=== PATIENT | female | born 1950 | race Caucasian/White ===

== ENCOUNTER → 2016-10-13 08:45 | Outpatient (CLI) | payer MEDICARE, BC ==
[2015-12-18 09:34] VITALS: BMI 49.9
[~2016-10-13 08:45] MED LIST: ADVAIR 250/501 DISK INH; ASPIRIN EC81 M1 PO; BYDUREON P2 MG/0.65 SC; CALTRATE 600 M600 M1 PO; DESERYL100 MG PO; DETROL LA4 MG PO; DIABETA5 MG PO; DIFLUCAN100 MG PO; EFFEXOR XR150 MG; EFFEXOR XR150 MG PO; FLOVENT DI50 MCG/DIS INH; FLUTICASONE PRO16 GM NASAL; GABITRIL4 MG PO; GLUCOPHAGE1000 MG PO; GLUCOPHAGE500 MG PO; IPRAT-ALBUT 0.5-3 ML UPD; K-TAB10 MEQ PO; KLOR-CON 1010 MEQ PO; LANSOPRAZOLE30 M1 PO; LASIX20 MG PO; LASIX40 MG PO; LIORESAL 10 MG10 MG PO; METOPROLOL TART50 MG PO; MIRALAX17 GM PO; MUCINEX600 MG PO; NORCO 10/325 TA1 TA1 PO; NORVASC5 MG PO; NYSTATIN ORAL SU5 ML PO; REGLAN5 MG PO; ROBAXIN500 MG PO; SINGULAIR10 MG PO; SYNTHROID100 MCG PO; SYNTHROID200 MC1 PO; SYNTHROID50 MCG PO; TUDORZA PRESS400 MCG INH; ULTRAM50 MG PO; VENTOLIN HFA18 GM INH; ZESTRIL40 MG PO; ZYRTEC10 MG PO
== END | disposition home or self-care (01) ==
LOC: D.RT 08:45
DX: J44.9 Chronic obstructive pulmonary disease, unspecified (principal)

== ENCOUNTER 2017-03-18 09:45 | Inpatient (IN) | payer MEDICARE, BC ==
[~2017-03-18] VITALS: Ht 162.6 cm; Wt 121.2 kg
--- NOTE | ~2017-03-18 | OP ---
PATIENT NAME: FAN PAZ MEDICAL RECORD: [id number] :50 LOCATION:D.MS Vu4 ADMISSION DATE:03/19/17 SURGEON: JORDI ORELLANA DO OPERATION DATE: 03/22/17 PROCEDURE: Flexible sigmoidoscopy with biopsies and stool collection. INDICATIONS FOR PROCEDURE: Diarrhea. SCOPE: Olympus video gastroscope. MEDICATIONS: Propofol 250 milligrams IV per anesthesia. ESTIMATED BLOOD LOSS: None. COMPLICATIONS: None. FINDINGS: Informed consent was given. The patient was made comfortable with the above medication. After reaching an adequate level of sedation by slow IV push, the patient was placed on her left side. The endoscope was then advanced under direct visualization through the rectum to the splenic flexure. The scope was slowly withdrawn, and the mucosa was carefully examined. On this examination there was evidence of mild diverticulosis of the sigmoid colon. Retroflexion was performed in the rectum with normal view. The entire viewed mucosa appeared normal with a normal vascular pattern. There were no ulcerations, erosions or other abnormalities. Random biopsies were collected to submit for histology and to rule out microscopic colitis. Stool was collected during this examination to send for further studies including culture, Clostridium-difficile, antigen testing, ova and parasites, and fecal white blood cells. The endoscope was withdrawn from the patient. The patient tolerated the procedure well, and there were no complications. IMPRESSIONS: 1. Diverticulosis. 2. Otherwise normal mucosa to the splenic flexure. PLAN/RECOMMENDATIONS: 1. Return to floor. 2. Continue current management while awaiting biopsy results and stool studies. 3. Further recommendations to follow pending course over the next couple of days. JORDI ORELLANA DO CC: [id number] DICTATION DATE: 03/22/17 1500 PC MAINTENANCE TECHNICIAN: BRANDON 03/23/17 1226 ADM IN [facility] [address] [place] [address]
[2017-03-18 10:57] LABS: HEMATOCRIT 39.4 % (36.0-48.0); MCHC 35.5 g/dL (31.0-37.0); MCV 92.9 fL (80.0-100.0); MEAN PLATELET VOLUME 10.2 fL (7.4-10.4); PLATELET COUNT 245 10x3/uL (130-400); RBC 4.24 10x6/uL (4.00-5.40); RDW 12.1 % (11.5-14.5); WBC 21.4 10x3/uL (4.8-10.8)
[2017-03-18 11:04] LABS: ALBUMIN 3.6 g/dL (3.4-5.0); BILIRUBIN - TOTAL 0.75 mg/dL (0.2-1.3); CALCIUM 8.4 mg/dL (8.5-10.1); CARBON DIOXIDE 34.1 mmol/L (21.0-32.0); CREATININE - SERUM 1.5 mg/dL (0.6-1.3)
[2017-03-18 11:10] LABS: ANION GAP 13.5 mmol/L (8-16); POTASSIUM - SERUM 2.6 mmol/L (3.5-5.1)
[2017-03-18 11:12] LABS: EOSINOPHILS 2 % (0-7); LYMPHOCYTES 13 % (15-50); MONOCYTES 5 % (2-11); NEUTROPHILS 75 % (40-80); PLATELET ESTIMATE NORMAL; ROULEAUX OCC
[2017-03-18 12:24] LABS: APPEARANCE HAZY (CLEAR); BILIRUBIN NEGATIVE (NEGATIVE); COLOR YELLOW (YELLOW); GLUCOSE NEGATIVE (NEGATIVE); KETONE NEGATIVE (NEGATIVE); LEUKOCYTE ESTERASE TRACE (NEGATIVE); NITRITE NEGATIVE (NEGATIVE); PROTEIN NEGATIVE (NEGATIVE); UROBILINOGEN NORMAL (NORMAL)
[2017-03-18 12:25] LABS: BACTERIA FEW /hpf (NONE SEEN); EPITHELIAL CELLS OCC /hpf (0-5); WHITE CELLS - URINE OCC /hpf (0-5)
--- NOTE | 2017-03-18 17:30 | NUR ---
ASSESSMENT PER ADMIT PACK .PT WITHOUT DISTRESS. FALL PREVENTION INITIATED,SCD'S. BED RAILS PADDED.ORIENTATION TO ROOM.CALL LIGHT IN REACH.
[2017-03-18] MEDS ORDERED: CIPRO250 MG PO (17:42)
[2017-03-18] MEDS ORDERED: FLAGYL500 MG PO (17:43)
[2017-03-18] MEDS ORDERED: MULTIPLE VITAMI1 TA1 PO (17:44)
[2017-03-18] MEDS ORDERED: PROBIOTIC1 EAC1 PO (17:45)
[2017-03-18 17:56] VITALS: BP 141/56; BMI 49.4
[2017-03-18 18:53] LABS: PHOSPHOROUS 2.1 mg/dL (2.5-4.9)
[2017-03-18 18:58] LABS: MAGNESIUM - SERUM 0.9 mg/dL (1.8-2.4)
[2017-03-18 19:20] LABS: MAGNESIUM - SERUM 0.8 mg/dL (1.8-2.4); POTASSIUM - SERUM 2.6 mmol/L (3.5-5.1)
[2017-03-18 20:00] VITALS: BP 147/61
[2017-03-19] VITALS: BP 144/49
[2017-03-19 04:00] VITALS: BP 161/71
[2017-03-19 05:07] LABS: BASOPHILS 0.2 % (0-2); EOSINOPHILS 0.9 % (0-7); HEMATOCRIT 35.5 % (36.0-48.0); HEMOGLOBIN 12.3 g/dL (12-16); IMMATURE GRANULOCYTES 0.5 % (0-5); MCH 32.6 pg (26.0-34.0); MCHC 34.6 g/dL (31.0-37.0); MCV 94.2 fL (80.0-100.0); MEAN PLATELET VOLUME 10.3 fL (7.4-10.4); MONOCYTES 4.8 % (2-11); NEUTROPHILS 79.6 % (40-80); PLATELET COUNT 211 10x3/uL (130-400); RBC 3.77 10x6/uL (4.00-5.40); RDW 12.2 % (11.5-14.5); WBC 17.6 10x3/uL (4.8-10.8)
[2017-03-19 05:33] LABS: ANION GAP 11.7 mmol/L (8-16); BILIRUBIN - TOTAL 0.64 mg/dL (0.2-1.3); CALCIUM 7.7 mg/dL (8.5-10.1); CREATININE - SERUM 1.2 mg/dL (0.6-1.3); PROTEIN - SERUM 6.9 g/dL (6.4-8.2)
[2017-03-19 05:34] LABS: POTASSIUM - SERUM 2.7 mmol/L (3.5-5.1)
--- NOTE | 2017-03-19 07:40 | NUR ---
ASSESSMENT PER FLOW SHEET.PT WITHOUT DISTRESS.DENIES NEEDS A PRESENT.CALL LIGHT IN REACH.BOX ALARM IN PLACE.PT INSTRUCTED ON FALL PREVENTION.CALL LIGHT IN REACH.
[2017-03-19 08:16] VITALS: BP 112/69
[2017-03-19 12:45] VITALS: BP 137/51
[2017-03-19 12:50] VITALS: Ht 162.6 cm; Wt 121.2 kg
[2017-03-19 15:38] VITALS: BP 137/59
--- NOTE | 2017-03-19 15:41 | NUR ---
Patient Name: FAN PAZ Admission Status: ER Accout number: [id number] Admission Date: 03-18-2017 : 1950 Admission Diagnosis: Attending: MATT Current LOS: 1 Anticipated DC Date: Planned Disposition: Home Primary Insurance: MEDICARE A & B Discharge Planning Comments: CM met with patient and partner (Zayda Patel) to assess discharge planning needs. Patient lives independently at home with her partner. She uses an electric wheelchair, CPAP with Oxygen and nebulizer. Patient has a ramp at home. Patient refuses home health at this time. CM will continue to follow and assist as needed PCP: Anisha Valderrama: [facility] [address] Zayda Sahnishaw (partner) [phone] Health Facilities Surveyor: Sara Sears * Is the patient Alert and Oriented? Yes 0 * How many steps to enter\exit or inside your home? 0 0 * PCP ANISHA 0 * Pharmacy [facility] [address] 0 * Preadmission Environment Home with Family 0 * ADLs Independent 0 * Equipment CPAP Nebulizer Wheelchair 0 * Other Equipment ELECTRIC WHEELCHAIR 0 * List name and contact numbers for known caregivers / representatives who currently or will assist patient after discharge: Zayda Brooksshyann (partner) [phone] 0 * Community resources currently utilized None 0 * Additional services required to return to the preadmission environment? Yes 0 * Can the patient safely return to the preadmission environment? Yes 0 * Has this patient been hospitalized within the prior 30 days at any hospital? No 0 Grand Total: 0
[2017-03-19 20:00] VITALS: BP 158/66
[2017-03-20] VITALS: BP 116/51
[2017-03-20 04:00] VITALS: BP 116/84
--- NOTE | 2017-03-20 04:13 | NUR ---
ASSESSED AT THE BEGINNING OF THE SHIFT. PT IS ALERT AND ORIENTED, ABLE TO VERBALIZE NEEDS. SHE IS SET UP IN BED FOR SEIZURE PRECAUTIONS AND THERE IS A BOX ALARM FOR SAFETY. SHE NEVER TRIES TO GET UP TO BATHROOM ALONE, SHE IS GOOD ABOUT CALLING FOR ASSIST. AT NIGHT SHE USES HER CPAP BUT DURING HER WAKING HRS IT IS O2 AT 2 LITERS PER N/C. SHE IS NOT WEARING HER SCD'S AND STATED THEY WERE TOO HOT. THE BED IS LOW, RAILS UP X'S 2 WITH THE CALL LIGHT AT HAND.
[2017-03-20 05:50] LABS: BASOPHILS 0.3 % (0-2); EOSINOPHILS 3.2 % (0-7); HEMATOCRIT 35.4 % (36.0-48.0); HEMOGLOBIN 11.9 g/dL (12-16); IMMATURE GRANULOCYTES 1.3 % (0-5); LYMPHOCYTES 17.6 % (15-50); MCH 32.7 pg (26.0-34.0); MCHC 33.6 g/dL (31.0-37.0); MEAN PLATELET VOLUME 9.9 fL (7.4-10.4); MONOCYTES 6.2 % (2-11); NEUTROPHILS 71.4 % (40-80); PLATELET COUNT 210 10x3/uL (130-400); RBC 3.64 10x6/uL (4.00-5.40); RDW 12.4 % (11.5-14.5); WBC 13.3 10x3/uL (4.8-10.8)
[2017-03-20 05:54] LABS: MCV 97.3 fL (80.0-100.0)
[2017-03-20 06:23] LABS: ALBUMIN 2.8 g/dL (3.4-5.0); ANION GAP 10.6 mmol/L (8-16); BILIRUBIN - TOTAL 0.4 mg/dL (0.2-1.3); CALCIUM 7.8 mg/dL (8.5-10.1); CARBON DIOXIDE 29.9 mmol/L (21.0-32.0); MAGNESIUM - SERUM 2.1 mg/dL (1.8-2.4); PROTEIN - SERUM 6.6 g/dL (6.4-8.2)
[2017-03-20 06:33] LABS: POTASSIUM - SERUM 3.5 mmol/L (3.5-5.1)
--- NOTE | 2017-03-20 07:00 | NUR ---
REPORT RECIEVED, ASSUMED CARE. PATIENT IN BED WITH IV INTACT. NO COMPLAINTS AT THIS TIME. CALL LIGHT WITHIN REACH.
[2017-03-20 08:23] VITALS: BP 137/57
[2017-03-20 12:01] VITALS: BP 122/62
--- NOTE | 2017-03-20 12:15 | NUR ---
IV FROM RIGHT ARM REMOVED. HARD AND RED AT THIS TIME. CATH TIP INTACT. CALL LIGHT WITHIN REACH.
--- NOTE | 2017-03-20 12:30 | NUR ---
PATIENT IV RESTARTED IN LEFT ARM AT THIS TIME. NO COMPLAINTS OR SIGNS OF DISTRESS. CALL LIGHT WITHIN REACH.
--- NOTE | 2017-03-20 17:58 | NUR ---
PATIENT IN BED WITH IV INTACT. NO COMPLAINTS. FAMILY AT BEDSIDE. CALL LIGHT WITHIN REACH.
[2017-03-20 20:00] VITALS: BP 142/60
[2017-03-21] VITALS: BP 125/46
[2017-03-21 04:00] VITALS: BP 146/56
[2017-03-21 04:40] LABS: BASOPHILS 0.3 % (0-2); EOSINOPHILS 3.5 % (0-7); HEMATOCRIT 36.6 % (36.0-48.0); HEMOGLOBIN 12.4 g/dL (12-16); IMMATURE GRANULOCYTES 1.1 % (0-5); LYMPHOCYTES 19.3 % (15-50); MCHC 33.9 g/dL (31.0-37.0); MCV 97.3 fL (80.0-100.0); MEAN PLATELET VOLUME 9.9 fL (7.4-10.4); NEUTROPHILS 69.8 % (40-80); PLATELET COUNT 237 10x3/uL (130-400); RBC 3.76 10x6/uL (4.00-5.40); RDW 12.4 % (11.5-14.5); WBC 14.1 10x3/uL (4.8-10.8)
[2017-03-21 05:00] LABS: ALBUMIN 2.8 g/dL (3.4-5.0); ANION GAP 10.3 mmol/L (8-16); BILIRUBIN - TOTAL 0.34 mg/dL (0.2-1.3); CALCIUM 7.8 mg/dL (8.5-10.1); CARBON DIOXIDE 28.5 mmol/L (21.0-32.0); MAGNESIUM - SERUM 1.7 mg/dL (1.8-2.4); PHOSPHOROUS 2.1 mg/dL (2.5-4.9); POTASSIUM - SERUM 3.8 mmol/L (3.5-5.1); PROTEIN - SERUM 6.6 g/dL (6.4-8.2)
--- NOTE | 2017-03-21 07:00 | NUR ---
REPORT RECIEVED ASSUMED CARE. PATIENT IN BED WITH IV INTACT. NO COMPLAINTS. CALL LIGHT WITHIN REACH.
[2017-03-21 12:57] VITALS: BP 127/43
[2017-03-21 15:58] VITALS: BP 125/64
[2017-03-21 16:29] VITALS: BP 144/54
--- NOTE | 2017-03-21 18:55 | NUR ---
PATIENT IN BED WITH IV INTACT. NO COMPLAINTS. IV INTACT. CALL LIGHT WITHIN REACH.
--- NOTE | 2017-03-21 19:07 | NUR ---
Received patient in bed with oxygen on @2L/min, respirations unlabored. PIV in left forearm with NS @30ml/hr infusing well. No complaints of pain or discomfort at this time.
[2017-03-21 20:00] VITALS: BP 123/56
--- NOTE | 2017-03-21 21:40 | NUR ---
Patient reports several bouts of diarrhea throughout the day, given Lomotil 1 tab for this at this time. Was also given Restoril 15mg @2132 for complaints of insomnia. Results of Ultram given by day shift nurse are effective. Patient is aware that she will be NPO after midnight for surgery tomorrow. Has telemetry on.
[2017-03-22] VITALS (7 sets, daily range): BP systolic 123–159; BP diastolic 53–86
[2017-03-22 04:48] LABS: BASOPHILS 0.4 % (0-2); EOSINOPHILS 2.8 % (0-7); HEMATOCRIT 36.4 % (36.0-48.0); HEMOGLOBIN 12.2 g/dL (12-16); IMMATURE GRANULOCYTES 1.5 % (0-5); LYMPHOCYTES 20.9 % (15-50); MCH 32.7 pg (26.0-34.0); MCHC 33.5 g/dL (31.0-37.0); MCV 97.6 fL (80.0-100.0); MONOCYTES 6.4 % (2-11); PLATELET COUNT 260 10x3/uL (130-400); RBC 3.73 10x6/uL (4.00-5.40); RDW 12.4 % (11.5-14.5); WBC 14.1 10x3/uL (4.8-10.8)
[2017-03-22 05:15] LABS: ALBUMIN 2.8 g/dL (3.4-5.0); ANION GAP 14.3 mmol/L (8-16); BILIRUBIN - TOTAL 0.34 mg/dL (0.2-1.3); CARBON DIOXIDE 23.6 mmol/L (21.0-32.0); CREATININE - SERUM 0.9 mg/dL (0.6-1.3); MAGNESIUM - SERUM 1.9 mg/dL (1.8-2.4); PHOSPHOROUS 2.1 mg/dL (2.5-4.9); POTASSIUM - SERUM 3.9 mmol/L (3.5-5.1); PROTEIN - SERUM 6.4 g/dL (6.4-8.2)
--- NOTE | 2017-03-22 06:30 | NUR ---
Given two fleets enemas, up to bathroom, having good results.
--- NOTE | 2017-03-22 09:17 | NUR ---
NOTIFIED DR. ARMSTRONG OF PATIENTS EGD. STATED SHE WOULD CALL DR. ORELLANA FOR EGD.
--- NOTE | 2017-03-22 12:16 | NUR ---
NUTRITION MONITORING & EVAL CHART REVIEWED. PT CURRENTLY NPO FOR PROCEDURE. WILL PROVIDE DIET WHEN RESUMED, MONITOR PO INTAKE. RD FOLLOWING
--- NOTE | 2017-03-22 18:55 | NUR ---
1849 DR. ORELLANA GAVE PT. RESULTS. PT. PASSING FLATUS.
[2017-03-23] VITALS: BP 137/48
--- NOTE | 2017-03-23 00:04 | NUR ---
PT RESTIN GIN BED WITH CPAP IN PLACE NO ACUTE DISTRSS NOTED ABLE TO VOICE ALL NEEDS TO STAFF CALL LIGHT IN REACH SIDE RAILS UP X 2
[2017-03-23 04:00] VITALS: BP 106/62
[2017-03-23 05:18] LABS: BASOPHILS 0.5 % (0-2); EOSINOPHILS 2.3 % (0-7); HEMATOCRIT 36.8 % (36.0-48.0); HEMOGLOBIN 12.4 g/dL (12-16); IMMATURE GRANULOCYTES 1.2 % (0-5); LYMPHOCYTES 22.4 % (15-50); MCH 32.8 pg (26.0-34.0); MCHC 33.7 g/dL (31.0-37.0); MCV 97.4 fL (80.0-100.0); MEAN PLATELET VOLUME 9.9 fL (7.4-10.4); MONOCYTES 4.8 % (2-11); NEUTROPHILS 68.8 % (40-80); PLATELET COUNT 286 10x3/uL (130-400); RBC 3.78 10x6/uL (4.00-5.40); RDW 12.5 % (11.5-14.5); WBC 13.2 10x3/uL (4.8-10.8)
[2017-03-23 05:28] LABS: ALBUMIN 2.7 g/dL (3.4-5.0); ANION GAP 12.8 mmol/L (8-16); BILIRUBIN - TOTAL 0.39 mg/dL (0.2-1.3); CALCIUM 7.9 mg/dL (8.5-10.1); CARBON DIOXIDE 23.7 mmol/L (21.0-32.0); MAGNESIUM - SERUM 1.5 mg/dL (1.8-2.4); POTASSIUM - SERUM 3.5 mmol/L (3.5-5.1); PROTEIN - SERUM 6.5 g/dL (6.4-8.2)
[2017-03-23 05:37] LABS: PHOSPHOROUS 3.1 mg/dL (2.5-4.9)
--- NOTE | 2017-03-23 07:40 | NUR ---
SITTING UP IN BED, FAMILY AT BEDSIDE, DENIES NEEDS, CALL LIGHT IN REACH, BED LOWEST POSITION, WILL CONTINUE TO MONITOR
[2017-03-23 08:03] VITALS: BP 131/55
--- NOTE | 2017-03-23 11:40 | NUR ---
RESTING QUIETLY WITH EYES CLOSED RESP DEEP EVEN UNLABORED.BED LOW CL IN REACH.
[2017-03-23 11:41] VITALS: BP 128/78
[2017-03-23 15:43] VITALS: BP 126/54
[2017-03-23 20:00] VITALS: BP 142/62
--- NOTE | 2017-03-23 22:00 | NUR ---
PATIENT IS AWAKE, ALERT AND ORIENTED X'S 4. NO SIGNS OF DISTRESS NOTED. PATIENT SITTING ON THE SIDE OF THE BED. DENIES NEEDS AT THIS TIME.
[2017-03-24] VITALS: BP 117/76
--- NOTE | 2017-03-24 02:30 | NUR ---
C/O OF PAIN IN BACK, A LEVEL OF 7, PAIN MED GIVEN, AND MONITOR CLOSELY.
[2017-03-24 04:00] VITALS: BP 136/46
[2017-03-24 07:09] LABS: MAGNESIUM - SERUM 1.4 mg/dL (1.8-2.4); PHOSPHOROUS 3.1 mg/dL (2.5-4.9)
[2017-03-24 08:07] VITALS: BP 138/68
[2017-03-24] MEDS ORDERED: Levaquin PO (11:38)
[2017-03-24] MEDS ORDERED: FLAGYL250 MG PO (11:38)
[2017-03-24] MEDS ORDERED: THIAMINE HCL50 MG PO (11:50)
[2017-03-24] MEDS ORDERED: FOLIC ACID1 MG PO (11:50)
[2017-03-24 12:17] VITALS: BP 133/67
--- NOTE | 2017-03-24 12:54 | NUR ---
Patient being discharged today. Patient denies HH needs at this time, patient's partner with be driving patient home .
--- NOTE | 2017-03-24 13:15 | NUR ---
SITTING UP IN CHAIR AT THIS TIME WITH RESPIRATIONS EVEN AND NON LABORED. PT TO BE D/C HOME. DENIES NEEDS AT THIS TIME. CALL LIGHT IN REACH, WILL CONTINUE WITH PLAN OF CARE.
--- NOTE | 2017-03-24 13:30 | NUR ---
DISCHARGE PAPERS AND INSTRUCTIONS GIVEN, QUESTIONS ANSWERED, DISCHARGED PER WC WITH BELONGINGS, IV REMOVED LAST NIGHT
[2017-03-26 03:11] LABS: OVA + PARASITE EXAM Final report (())
== END 2017-03-24 13:51 | disposition home or self-care (01) | DRG 392 ==
LOC: D.ER 09:45 → OBSVTIME 15:54 → D.MS 15:54
PROVIDERS: Emergency Medicine; Internal Medicine Gastroenterology; ADMIT Emergency Medicine
PROC: 0DBN8ZX Excision of Sigmoid Colon, Via Natural or Artificial Opening Endoscopic, Diagnostic (ICD-10-PCS; principal; 2017-03-22 10:00)
DX: K52.832 Lymphocytic colitis (principal); N17.9 Acute kidney failure, unspecified; E87.1 Hypo-osmolality and hyponatremia; E11.65 Type 2 diabetes mellitus with hyperglycemia; Z79.84 Long term (current) use of oral hypoglycemic drugs; I10 Essential (primary) hypertension; I25.2 Old myocardial infarction; I11.0 Hypertensive heart disease with heart failure; I50.9 Heart failure, unspecified; G47.33 Obstructive sleep apnea (adult) (pediatric); E05.00 Thyrotoxicosis with diffuse goiter without thyrotoxic crisis or storm; Z99.81 Dependence on supplemental oxygen; E86.0 Dehydration; E87.6 Hypokalemia; E83.51 Hypocalcemia; R31.9 Hematuria, unspecified; K76.0 Fatty (change of) liver, not elsewhere classified; F10.10 Alcohol abuse, uncomplicated; K57.90 Diverticulosis of intestine, part unspecified, without perforation or abscess without bleeding; E03.9 Hypothyroidism, unspecified

== ENCOUNTER 2017-05-13 13:18 | Day surgery (SDC) | payer MEDICARE, BC ==
[~2017-05-13] VITALS: Ht 162.6 cm; Wt 130.9 kg
[~2017-05-13 13:18] MED LIST changes: +CIPRO250 MG PO; +FLAGYL250 MG PO; +FLAGYL500 MG PO; +FOLIC ACID1 MG PO; +Levaquin PO; +MULTIPLE VITAMI1 TA1 PO; +PROBIOTIC1 EAC1 PO; +THIAMINE HCL50 MG PO
[2017-05-13 14:04] VITALS: BP 136/53; Ht 162.6 cm; Wt 130.9 kg
[2017-05-13 14:47] LABS: BASOPHILS 0.2 % (0-2); HEMATOCRIT 36.3 % (36.0-48.0); HEMOGLOBIN 12.4 g/dL (12-16); IMMATURE GRANULOCYTES 0.3 % (0-5); LYMPHOCYTES 19.8 % (15-50); MCH 32.5 pg (26.0-34.0); MCHC 34.2 g/dL (31.0-37.0); MCV 95.3 fL (80.0-100.0); MONOCYTES 4.5 % (2-11); NEUTROPHILS 74.2 % (40-80); PLATELET COUNT 243 10x3/uL (130-400); RBC 3.81 10x6/uL (4.00-5.40); RDW 13.2 % (11.5-14.5); WBC 11.8 10x3/uL (4.8-10.8)
[2017-05-13 14:54] LABS: ANION GAP 14.1 mmol/L (8-16); CALCIUM 8.8 mg/dL (8.5-10.1); CARBON DIOXIDE 33.3 mmol/L (21.0-32.0); CREATININE - SERUM 1.1 mg/dL (0.6-1.3); POTASSIUM - SERUM 3.4 mmol/L (3.5-5.1)
--- NOTE | 2017-05-13 16:50 | NUR ---
ON THIRD TRANSVERSE POLYP CLIP APPLIED.
--- NOTE | 2017-05-13 17:53 | NUR ---
IV DC WITH CATHER TIP INTACT,W/O REDNESS
--- NOTE | 2017-05-17 15:50 | OP ---
PATIENT NAME: FAN PAZ MEDICAL RECORD: [id number] :50 LOCATION:D.OPS ADMISSION DATE: SURGEON: JORDI ORELLANA DO DATE OF OPERATION: 05/13/2017 PROCEDURE: Colonoscopy with polypectomy and saline injection for submucosal lift. INDICATIONS FOR PROCEDURE: Chronic constipation, history of colon polyps, and screening colonoscopy. SCOPE: Olympus video pediatric colonoscope. MEDICATIONS: Propofol IV per anesthesia. ESTIMATED BLOOD LOSS: Minimal. COMPLICATIONS: None. FINDINGS: Informed consent was given. The patient was made comfortable with the above medication. After reaching an adequate level of sedation by slow IV push, the patient was placed on her left side. A digital rectal examination was performed and was normal. The endoscope was then advanced under direct visualization through the rectum to the cecum with visualization of the appendiceal orifice and ileocecal valve. The scope was withdrawn and mucosa was examined. The prep quality was inadequate for this examination. There was a significant amount of retained stool even after irrigation and aspiration. From what could be seen, there were 4 separate polyps removed on today's examination. They ranged in size from 5 mm to 1.2 cm in diameter. One was located in the cecum. It was lifted with saline and removed with snare cautery. It was retrieved using a Rocha Net. There were 3 remaining polyps in the transverse colon. They were all removed using snare cautery. They were retrieved with a combination of suction through the scope and Rocha Net. The largest of the transverse colon polyps measured approximately 1.2 cm. It left a small defect with some bleeding at the base. To close this defect, a single endoclip was placed successfully. After this, the scope was withdrawn due to the time of the procedure and also due to the difficulty with visualization due to the prep. The scope was withdrawn from the patient. The patient tolerated the procedure well and there were no complications. IMPRESSIONS: 1. Multiple polyps as described above. 2. Diverticulosis involving the left side of the colon. PLAN AND RECOMMENDATIONS: 1. Discharge home when recovery parameters are met. 2. Follow up biopsy specimen results. 3. Recall colonoscopy within 6 months with an extended prep. Consider 2-day prep with MiraLax the first day and split Suprep the following day and a half. 4. Follow up biopsy specimen results. 5. Continue MiraLax 1 cap daily for constipation. TRANSINT:[id number] Voice Confirmation ID: [id number] DOCUMENT ID: [id number] OPERATIVE REPORT [id number] FAN PAZ NATHAN A DO at 1550 CC: [id number] DICTATION DATE: 05/13/17 165 INSTALLATION DRAFTER: 05/14/17 0121 [facility] 05/13/17 [place] [id number] [place] [id number]
== END 2017-05-13 18:05 | disposition home or self-care (01) ==
LOC: D.OPS 13:18
PROVIDERS: Anesthesiology
DX: Z12.11 Encounter for screening for malignant neoplasm of colon (principal); D12.0 Benign neoplasm of cecum; D12.3 Benign neoplasm of transverse colon; I25.10 Atherosclerotic heart disease of native coronary artery without angina pectoris; I10 Essential (primary) hypertension; E11.9 Type 2 diabetes mellitus without complications; E03.9 Hypothyroidism, unspecified; K21.9 Gastro-esophageal reflux disease without esophagitis; G47.30 Sleep apnea, unspecified; J44.9 Chronic obstructive pulmonary disease, unspecified; Z01.812 Encounter for preprocedural laboratory examination; Z87.891 Personal history of nicotine dependence

== ENCOUNTER 2017-07-15 14:57 | Inpatient (IN) | payer MEDICARE, BC ==
[~2017-07-15] VITALS: Ht 162.6 cm; Wt 116.4 kg
[~2017-07-15 14:57] MED LIST changes: +ACETAMINOPHEN500 M1 PO; +HUMALOG 30100 UNITS/ SC; +LOVENOX30 MG/0.3 SC; +NYSTATIN1 PWD TOPICAL
--- NOTE | 2017-07-15 17:13 | NUR ---
RECIEVED ON FLOOR/BED.AIR MATTRESS IN WORKING ORDER.ORIENTED TO ROOM AND SURROUNDINGS.CL IN REACH.ACCOMPANIED PER FRIEND.
[2017-07-15 18:19] VITALS: BP 162/66; Ht 162.6 cm; Wt 116.4 kg
--- NOTE | 2017-07-15 19:30 | NUR ---
PATIENT IN BED, AWAKE. S.O. AT BEDSIDE. SHIFT HANDOFF COMPLETE.
--- NOTE | 2017-07-15 20:00 | NUR ---
PATIENT HAVING N/V WHICH HAS NOT REMITTED SIGNIFICANTLY SINCE MID AFTERNOON IN ACUTE CARE. DYA SHIFT CHARGE CALLED DR. ALMONTE RECENTLY. NOW HAVE GIVEN PATIENT ONDANSETRON 8MG IVP VIA LEFT UA PICC LINE. PORT WAS FLUSHED WITH 10ML NS.
[2017-07-15 22:10] VITALS: BP 132/65
--- NOTE | 2017-07-15 22:15 | NUR ---
ASSESSMENT COMPLETE. CONTINUES NAUSEATED WITH OCCASION SMALL VOLUME EMESIS CONSISTING OF UNDIGESTED FOOD PARTICLES. SO FAR ABOUT 200ML SINCE START OF SHIFT. USING EMESIS BAG UNASSISTED WITHOUT DIFFICULTY. FLUSHED HER PICC LINE PORTS. GAVE HER SCHEDULED LOVENOX 30MG SC IN LUQ ABDOMEN. FSBS 110. HELD ALL PO MEDS DUE TO ONGOING N/V.
--- NOTE | 2017-07-16 | NUR ---
IN BED, AWAKE. STILL NAUSEATED WITH OCCASIONAL SMALL AMOUNTS OF EMESIS.
--- NOTE | 2017-07-16 02:05 | NUR ---
PATIENT STILL REPORTS NAUSEA WITH OCCASIONAL SMALL EMESIS. CHANGED OUT ANOTHER EMESIS BAG. STILL UNDIGESTED FOOD BUT MORE LIQUID. PATIENT HAS BEEN SIPPING NAOMY AGUSTÍN ALL NIGHT AND HAS SO FAR DOWNED AROUND 300ML SINCE 193. GAVE HER ONDANSETRON 8MG IVP PER RED PICC PORT AND FLUSHED PORT.
--- NOTE | 2017-07-16 04:40 | NUR ---
AZRA BLOOD FOR LABS FROM LEFT ARM PICC LINE AND FLUSHED BOTH PICC PORTS. SAYS SHE IS FEELING SOMEWHAT BETTER. SANCHEZ OUTPUT IS 500ML.
[2017-07-16 06:08] LABS: BASOPHILS 0.3 % (0-2); EOSINOPHILS 1.2 % (0-7); HEMATOCRIT 33.2 % (36.0-48.0); IMMATURE GRANULOCYTES 4.2 % (0-5); LYMPHOCYTES 15.7 % (15-50); MCH 31.3 pg (26.0-34.0); MCHC 33.1 g/dL (31.0-37.0); MEAN PLATELET VOLUME 9.3 fL (7.4-10.4); MONOCYTES 6.1 % (2-11); NEUTROPHILS 72.5 % (40-80); PLATELET COUNT 326 10x3/uL (130-400); RBC 3.52 10x6/uL (4.00-5.40); RDW 14.6 % (11.5-14.5); WBC 14.7 10x3/uL (4.8-10.8)
[2017-07-16 06:22] LABS: MCV 94.3 fL (80.0-100.0)
[2017-07-16 06:40] LABS: ANION GAP 19.6 mmol/L (8-16); CALCIUM 9.4 mg/dL (8.5-10.1); CARBON DIOXIDE 20.3 mmol/L (21.0-32.0); CREATININE - SERUM 2.3 mg/dL (0.6-1.3); POTASSIUM - SERUM 3.9 mmol/L (3.5-5.1)
--- NOTE | 2017-07-16 06:50 | NUR ---
FSBS 118. EARLIER GAVE PATIENT SCHEDULED PO MEDS ALONG WITH REGLAN 10MG PO FOR HER NAUSEA. ON CHECKING BACK WITH HER, PATIENT REPORTS SHE JUST HAD EMESIS AGAIN.
--- NOTE | 2017-07-16 06:59 | NUR ---
RESTING QUIETLY IN BED. CALL LIGHT IN REACH. BED IN LOWEST POSITION.
--- NOTE | 2017-07-16 08:15 | NUR ---
PT REPORTS NAUSEA AND VOMINTING THRU THE NIGHT STILL COMPLAINS OF NAUSEA WILL GIVE MEDS PER ORDER DR ALMONTE TO JOANNA IN ROUNDS CALL LIGHT IN REACH WILL MONITER
--- NOTE | 2017-07-16 10:00 | NUR ---
DR ALMONTE ORDERED FOR PT TO BE DISCHARGED TO ACUTE CARE PT NOTIFIED DR ARMSTRONG NOTIFIED PT TO BE TRANSFERRED TO ACUTE FLOOR PT CALL LIGHT IN REACH WILL MONITER
[2017-07-16] MEDS ORDERED: TUDORZA PRESS400 MCG INH (11:00)
[2017-07-16] MEDS ORDERED: ENALAPRILA1.25 MG/M1 IV (11:01)
[2017-07-16] MEDS ORDERED: DEXTROSE 50%/WA50 M2 IV (11:03)
[2017-07-16] MEDS ORDERED: GLUTOSE 1537.5 GM PO (11:06)
[2017-07-16] MEDS ORDERED: PROTONIX40 MG PO (11:07)
[2017-07-16] MEDS ORDERED: ONDANSETRON4 MG/2 M3 IV (11:07)
[2017-07-16] MEDS ORDERED: GLUCAGEN1 MG/VIAL IM ×2 (11:08→11:09)
[2017-07-16] MEDS ORDERED: GLUCAGEN1 MG/VIAL SC (11:10)
--- NOTE | 2017-07-16 11:19 | NUR ---
DUE TO CHANGE IN MEDICAL CONDITION PATIENT DISCHARGE FROM REHAB AND ADMITTED TO ACUTE FLOOR
--- NOTE | 2017-07-16 16:00 | NUR ---
PT DISCHARGED TO ACUTE FLOOR REPORT CALLED TO ASHLYN MEMBRENO
--- NOTE | 2017-07-19 11:18 | RHP ---
PATIENT: FAN PAZ MEDICAL RECORD: [id number] ACCOUNT: [id number] LOCATION:[facility] D.1108 : 50 ADMISSION DATE: 07/15/17 REHABILITATION HISTORY AND PHYSICAL EXAMINATION POST ADMISSION PHYSICIAN EXAMINATION DATE OF ADMISSION TO THE REHAB: 07/15/2017 ADMITTING DIAGNOSES: Critical illness myopathy. HISTORY OF PRESENT ILLNESS: The patient was admitted to the inpatient rehab with critical illness myopathy secondary to acute sepsis, acute leukocytosis, dehydration, diabetes, and hyperglycemia with acute kidney injury. She also suffers from hypertension, CHF, coronary artery disease, obesity, obstructive sleep apnea. She is O2 dependent. 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 The patient and her partner were vacationing in [place] approximately 1 month ago when she developed some urinary spasms. She took some Pyridium and her symptoms resolved. A week later, she had a high fever and mental status changes. She presented to the Emergency Room, where she was found to be in septic shock with gram-negative bacteria, which later grew out E. coli. She ended up intubated and was on the vent for approximately 12 days and in the ICU for a total of 15 days. She developed dry gangrene and necrosis. She has also got some decubitus on her buttocks, which are stage I. She has renal failure and has had to be dialyzed 6 times. Her creatinine is down to 2.1. She is a diabetic, but she is doing well from that standpoint. Previously, she was independent with ADLs and mobility. Currently, she is max to total assist for ADLs and mobility. She says she has not been out of bed or attempted to stand since 06/20 except for the use of a Ilan lift. She hopes to regain her strength and hopefully return home. We are going to let these areas on her feet demarcate themselves per surgery. Comorbidities in this patient include hypothyroidism, diabetes, hypertension, COPD, dysphagia, sepsis, hypothyroidism, dehydration, acute kidney injury, CHF, coronary artery disease which is chronic, history of [place] in the past, Graves disease, cataracts, ischemic necrosis, and gram-negative septicemia. PAST MEDICAL HISTORY: Significant for diabetes, thyroid disease, hypertension, CHF, coronary artery disease, COPD, BiPAP use, gastroesophageal reflux disease, diverticulosis, and obesity. PAST SURGICAL HISTORY: Includes gallbladder surgery, T&A, hysterectomy, knee replacements, bladder lift, discectomy, left shoulder scope, and laminectomy. ALLERGIES: OXYCODONE. SHE IS ALSO ALLERGIC TO CEFTIN, MACRODANTIN, CODEINE, AND SULFA. CURRENT MEDICATIONS: Furosemide 40 mg b.i.d. Effexor 150 mg daily. She is on a total of 30 mEq daily of the potassium. She is on polyethylene glycol 17 grams in 8 ounces of water daily. Synthroid, she actually takes a total of 225 mcg, she takes a 125 along with a 100. Protonix 40 mg daily. Floranex daily. She is on fluconazole 150 mg daily. Caltrate 500 mg daily. Aspirin chewable 81 mg daily. Acetaminophen 500 mg every 6 hours p.r.n. Enoxaparin 30 mg b.i.d. Zofran 8 mg every 6 hours p.r.n. nausea. She is on glucose replacement protocol p.r.n. Tramadol 100 mg every 6 hours. Gabitril 4 mg q.a.c. and at bedtime. She is on nystatin powder as needed. Singulair 10 mg at bedtime. Metoprolol 25 HISTORY AND PHYSICAL [id number] FAN PAZ GABRIEL L mg b.i.d. Reglan 10 mg t.i.d. She is on Advair inhaler 250/50 one inhalation b.i.d. Ventolin p.r.n. HABITS: No current alcohol or tobacco use. FAMILY HISTORY: Noncontributory. SOCIAL HISTORY: The patient hopes to return back home with her significant other and get back to her prior level of functioning. REVIEW OF SYSTEMS: GENERAL: Does complain of weakness and fatigue. HEENT: She denies cold, cough, or congestion. CARDIOVASCULAR: Denies chest pain. PHYSICAL EXAMINATION: VITAL SIGNS: Stable, afebrile. GENERAL: An obese female, in no distress. HEENT: Normocephalic and atraumatic. Mucosa moist. NECK: Supple. No lymphadenopathy. LUNGS: Clear at this time. HEART: Regular rate and rhythm. ABDOMEN: Benign. EXTREMITIES: She does have necrotic areas to both of her lower extremities. NEUROLOGIC: She seems intact, although she has got diffuse weakness. LABORATORY DATA: Her white count is 14.7, H&H of 11 and 33, and platelet count was noted to be 326. Her sodium is 133, potassium 3.9, BUN and creatinine of 27 and 2.3, and blood sugar is noted to be 118. ASSESSMENT: This is a 67-year-old female patient admitted to rehab with a working diagnosis of critical illness myopathy. The patient has potential to make improvement. We will institute the following multidisciplinary therapies including, but not limited to, physical, occupational, respiratory, speech, nutritional services, prosthetics and orthotics. Given her complex condition and risk for more complications, rehabilitation services cannot be provided at a low level of care such as a detention facility. PLAN: 1. Admit to [facility] rehab for intensive inpatient therapy to include the following disciplines: A. Physical therapy to improve gait, all transfer skills and bed mobility to a modified independent level. B. Occupational therapy to improve activities of daily living to a modified independent level. C. Case management to assist with discharge planning and placement options. D. Nutrition to assist with nutritional needs. E. Rehabilitation nursing to assist in monitoring the patient's underlying medical conditions and to assist with any type of bowel or bladder management. 2. The patient's current medication and medical care will be continued. 3. We will follow her extremities closely and have wound care see as needed. 4. We will discuss this patient during care team staff meeting this week and treat appropriately. TRANSINT:[id number] Voice Confirmation ID: [id number] DOCUMENT ID: [id number] HISTORY AND PHYSICAL [id number] FAN PAZ notes whether there has been none or any medical/functional change since admission: - The patient has been having vomiting since admit to IRF. ELDON attests patient continues to be appropriate for IRF: - Continues to be appropriate. JHON ALMONTE MD at 1118 CC: [id number] DICTATION DATE: 07/16/17817 CERTIFIED CYTOTECHNOLOGIST: 07/16/17 1054 DIS IN 07/16/17 [facility] [address] [id number]
--- NOTE | 2017-09-22 13:18 | DS ---
PATIENT:FAN PAZ :[birth year] MEDICAL RECORD: [id number] DISCHARGE SUMMARY ADMISSION DATE: 07/15/17 DISCHARGE DATE: 07/16/17 This is a discharge dated 07/16/2017 from inpatient rehab. 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 SECONDARY DIAGNOSES: 1. Urinary tract infection. 2. Diabetes. 3. Congestive heart failure. 4. Coronary artery disease. 5. Hypertension. 6. Hypothyroidism. 7. Hypokalemia. 8. Obesity. 9. Obstructive sleep apnea. 10. Coccyx wound. 11. Nausea and vomiting. 12. Chronic obstructive pulmonary disease. CONSULTS THIS HOSPITALIZATION: GI with Dr. Lei. HOSPITAL COURSE: Full H&P is located elsewhere on the chart on this 67-year-old female who was admitted to inpatient rehab for physical therapy and occupational therapy to improve gait, transfer skills, bed mobility, and activities of daily living to a modified independent level. She was evaluated by PT and OT and their plans of care were followed. She required snf care for observation and assessment, medication administration as well as wound care with a coccyx wound. Her fingerstick blood sugars were monitored throughout her hospital stay with appropriate adjustment in medication. She was on Diflucan for UTI. She was on nebulized albuterol and Advair for respiratory support. She continued on appropriate home medications. Electrolytes were managed by protocol. She developed significant nausea and vomiting and was seen by GI, Dr. Lei with planned EGD. [facility] of [facility] care. DISCHARGE MEDICATIONS: As per discharge medication reconciliation. DISCHARGE DISPOSITION: [facility] after EGD with Dr. Lei. She will continue current diet and level of activity and will follow with primary care and specialist in the acute facility. At least 30 minutes was spent in this discharge activity. TRANSINT:[id number] Voice Confirmation ID: [id number] DOCUMENT ID: [id number] Dictated By: HELENA BLUE I have interviewed/examined the above patient and agree with these documented findings. DISCHARGE SUMMARY REPORT [id number] FAN PAZ JHON WEEMS MD at 1318 at 0939 CC: [id number] DICTATION DATE: 09/18/17 1113 MICROBIOLOGICAL ANALYST: 09/18/17 1406 DIS IN 07/16/17 [facility] [address] [id number]
== END 2017-07-16 16:27 | disposition short-term general hospital (02) | DRG 91 ==
LOC: D.REHAB 14:57
PROVIDERS: ADMIT Emergency Medicine
DX: G72.81 Critical illness myopathy (principal); A41.9 Sepsis, unspecified organism; R65.21 Severe sepsis with septic shock; N17.9 Acute kidney failure, unspecified; Z68.41 Body mass index [BMI] 40.0-44.9, adult; R13.12 Dysphagia, oropharyngeal phase; E03.9 Hypothyroidism, unspecified; E11.65 Type 2 diabetes mellitus with hyperglycemia; J44.9 Chronic obstructive pulmonary disease, unspecified; E86.0 Dehydration; I11.0 Hypertensive heart disease with heart failure; I50.9 Heart failure, unspecified; G47.33 Obstructive sleep apnea (adult) (pediatric); Z99.81 Dependence on supplemental oxygen; E66.9 Obesity, unspecified; L89.301 Pressure ulcer of unspecified buttock, stage 1

== ENCOUNTER 2017-07-16 15:36 | Inpatient (IN) | payer MEDICARE, BC ==
[~2017-07-16] VITALS: Ht 162.6 cm; Wt 125.2 kg
[~2017-07-16 15:36] MED LIST changes: +DEXTROSE 50%/WA50 M2 IV; +ENALAPRILA1.25 MG/M1 IV; +GLUCAGEN1 MG/VIAL IM; +GLUCAGEN1 MG/VIAL SC; +GLUTOSE 1537.5 GM PO; +ONDANSETRON4 MG/2 M3 IV; +PROTONIX40 MG PO
--- NOTE | 2017-07-16 15:50 | NUR ---
1420-RECEIVED REPORT FROM [facility] IN REHAB. I TOLD HER THAT I WOULD CALL HER SOON ROOM IS DONE. 9830-CALLED TO LET [facility] KNOW THAT ROOM IS READY, THEY JUST FINISHED MOPPING THE FLOOR. I SPOKE WITH MINDY WHO SAID THAT [facility] WAS BRINGING THE PATIENT UP NOW EVEN THOUGH ROOM WAS NOT QUITE READY.
--- NOTE | 2017-07-16 16:35 | NUR ---
1555-RECEIVED TO ROOM FROM REHAB VIA BED ON 1ST STEP OVERLAY MATTRESS. WITH ASSIST X 4 PEOPLE, PATIENT PULLED ONTO WHITE BED IN ROOM. BILATERAL SCD'S ARE ON. LEFT UPPER ARM PICC LINE SEEN, SALINE LOCK, FLUSHES WELL. IV SITE IS DATED . RASH NOTED ANTERIOR NECK. UNDER BILATERAL BREASTS AND UNDER ABDOMINAL GIRTH THERE IS NYSTATIN POWDER. ROLLED TO SIDE AND IN BETWEEN UPPER THIGHS AND TO BUTTOCK THERE IS SKIN PEELED OFF R/T YEAST. MEPILEX SEEN TO COCCYX AREA, DATED 07/15/17. ALL THE ENDS OF HER TOES ARE BLACK, NECROTIC LOOKING. SANCHEZ CATH PATENT WITH CLEAR YELLOW URINE, NO DATE TO BAG. 1606-EKG DONE ORDERED FOR PRE-OP OF EGD. 1617-PRE-OP MEDS GIVEN FOR EGD BY BRITTANI CAMEJO RN. WILL TRY AND ADMIT.
[2017-07-16 17:13] VITALS: BP 175/70; BMI 45.0
--- NOTE | 2017-07-16 17:43 | NUR ---
TO GI LAB VIA BED.
--- NOTE | 2017-07-16 18:26 | NUR ---
RECEIVED BACK FROM GI LAB. DAVID.
--- NOTE | 2017-07-16 19:32 | NUR ---
PT LAYING IN BED. PT ON 1.5L OF O2. PT HAS SCDS ON BILATERALY LOWER EXTREM. TOES HAVE NECROSIS. 1ST STEP OVERLAY BED. FAMILY IN ROOM. DENIES ANEEDS. NO S/S OF DISTRESS. WILL CPOC
[2017-07-16 20:00] VITALS: BP 189/69
[2017-07-17] VITALS: BP 175/82
--- NOTE | 2017-07-17 00:26 | NUR ---
PT RESTING IN BED. SCD'S ON BILATERAL TO LOWER LEGS. PT REPOSISTIONED. SHE SPEAKS SOFTLY AND SAYS ITS FROM HER MOUTH BEING DRY. PT HAS DRY LIPS AND MOUTH. OFFERED AN ORAL CARE KIT TO DO ORAL CARE TO PT AND ALSO MOUTH MOISTURIZER. PT DECLINED BOTH. PT JUST WANTS WATER. 1ST STEP OVERLAY BED LOW. CALL LIGHT IN REACH. PT READY TO SLEEP. DENIES ANY NEEDS. NO S/S OF DISTRESS. WILL CPOC
--- NOTE | 2017-07-17 03:43 | NUR ---
REPOSITIONED PT. PT DENIES ANY OTHER NEEDS. PT HAS NO S/S OF DISTRESS. WILL CPOC
[2017-07-17 04:00] VITALS: BP 181/84
--- NOTE | 2017-07-17 05:38 | NUR ---
MORNING MEDS GIVEN PT C/O INDIGESTION. SET PT UP AND OFFERED PT MILK. SHE WANTED TO JUST WAIT FOR REGALN. GIVING PT REGALN NOW WITH PROTONIX. PT DENIES ANY OTHER NEEDS. NO S/S OF DISTRESS. WILL CPOC
[2017-07-17 06:25] LABS: BASOPHILS 0.4 % (0-2); EOSINOPHILS 2.7 % (0-7); HEMATOCRIT 32.8 % (36.0-48.0); HEMOGLOBIN 10.8 g/dL (12-16); IMMATURE GRANULOCYTES 2.9 % (0-5); LYMPHOCYTES 16.3 % (15-50); MCHC 32.9 g/dL (31.0-37.0); MCV 94.3 fL (80.0-100.0); MEAN PLATELET VOLUME 9.5 fL (7.4-10.4); NEUTROPHILS 69.7 % (40-80); PLATELET COUNT 349 10x3/uL (130-400); RBC 3.48 10x6/uL (4.00-5.40); WBC 18.7 10x3/uL (4.8-10.8)
[2017-07-17 06:32] LABS: ANION GAP 18.1 mmol/L (8-16); CARBON DIOXIDE 20.5 mmol/L (21.0-32.0); CREATININE - SERUM 2.2 mg/dL (0.6-1.3); POTASSIUM - SERUM 3.6 mmol/L (3.5-5.1)
--- NOTE | 2017-07-17 07:30 | NUR ---
REPORT RECEIVED. ASSISTED PT TO USED BED WILSON X2 ASSIST. NO RESULTS. PT DENIES OTHER NEEDS AT THIS TIME. RR EVEN AND UNLABORED. REMOVED MEPELEX DUE TO IT BEING SOILED, SKIN IS VERY EXCORIATED IN BUTTOCK AREA. WILL CTM.
[2017-07-17 08:22] VITALS: BP 149/75
--- NOTE | 2017-07-17 09:30 | NUR ---
PT REPORTS FEELING NAUSEATED. WILL GIVE PRN ZOFRAN AND CTM.
--- NOTE | 2017-07-17 10:00 | NUR ---
SPOKE TO FAMILY AND PT ABOUT PT CONDTION. PT REQUESTING STOOL SOFTNER, WILL GIVE WITH MORNING MEDS. PT REQUESTED XANAX, SOMETHING SHE TAKES AT HOME FOR NERVES. WILL CTM.
[2017-07-17 10:57] VITALS: Ht 162.6 cm; Wt 125.2 kg
[2017-07-17 12:24] VITALS: BP 156/76
--- NOTE | 2017-07-17 14:39 | NUR ---
PT REPORTS FEELING NAUSEATED. WILL GIVE ZOFRAN DRIP WHEN AVAILABLE FROM PHARMACY. WILL CTM. RR EVEN AND UNLABORED.
[2017-07-17 17:14] LABS: APPEARANCE CLEAR (CLEAR); BILIRUBIN NEGATIVE (NEGATIVE); COLOR STRAW (YELLOW); GLUCOSE NEGATIVE (NEGATIVE); KETONE NEGATIVE (NEGATIVE); NITRITE NEGATIVE (NEGATIVE); PROTEIN NEGATIVE (NEGATIVE); SPECIFIC GRAVITY 1.005 (1.005-1.020); UROBILINOGEN NORMAL (NORMAL)
[2017-07-17 17:16] LABS: BACTERIA FEW /hpf (NONE SEEN); WHITE CELLS - URINE 0-5 /hpf (0-5); YEAST OCC /hpf (NONE SEEN)
--- NOTE | 2017-07-17 18:34 | NUR ---
PT RESTING QUIETLY, NAUSEA HAS DECREASED SINCE ZOFRAN DRIP INITIATED. EMPTIED SANCHEZ CATHETER. RR EVEN AND UNLABORED. PT DENIES NEEDS AT THIS TIME. WILL GIVE REPORT ON PT CONDTION FOR THE DAY.
--- NOTE | 2017-07-17 19:48 | NUR ---
PT RESTING, 1ST STEP OVERLAY BED. NS @ 100, ZOFRAN @ 4.7 TO LEFT AC PICC. PT FEET ELEVATED AND SCD'S ON BILATERALY. PT TOES ON BOTH FEET NECROTIC. 1.5L O2 NC. RESPIRTAIONS EVEN AND UNLABORED. URINE IN SANCHEZ CATH CLEAR YELLOW. PT DECLINES BEING REPOSITIONED. DENIES ANY NEEDS. NO S/S OF DISTRESS. BED LOW AND CALL LIGHT IN REACH. WILL CPOC
[2017-07-17 20:00] VITALS: BP 164/61
[2017-07-18] VITALS: BP 105/52
[2017-07-18 04:00] VITALS: BP 119/57
[2017-07-18 05:07] LABS: BASOPHILS 0.5 % (0-2); EOSINOPHILS 3.7 % (0-7); HEMATOCRIT 30.8 % (36.0-48.0); HEMOGLOBIN 10.1 g/dL (12-16); IMMATURE GRANULOCYTES 2.6 % (0-5); LYMPHOCYTES 20.2 % (15-50); MCH 31.3 pg (26.0-34.0); MCHC 32.8 g/dL (31.0-37.0); MCV 95.4 fL (80.0-100.0); MEAN PLATELET VOLUME 9.3 fL (7.4-10.4); MONOCYTES 8.6 % (2-11); NEUTROPHILS 64.4 % (40-80); PLATELET COUNT 270 10x3/uL (130-400); RBC 3.23 10x6/uL (4.00-5.40); RDW 14.6 % (11.5-14.5); WBC 14.8 10x3/uL (4.8-10.8)
[2017-07-18 05:29] LABS: ALBUMIN 2.4 g/dL (3.4-5.0); BILIRUBIN - TOTAL 0.5 mg/dL (0.2-1.3); CALCIUM 8.5 mg/dL (8.5-10.1); MAGNESIUM - SERUM 1.1 mg/dL (1.8-2.4); POTASSIUM - SERUM 3.4 mmol/L (3.5-5.1); PROTEIN - SERUM 7.6 g/dL (6.4-8.2)
[2017-07-18 05:35] LABS: ANION GAP 11.9 mmol/L (8-16); CARBON DIOXIDE 26.5 mmol/L (21.0-32.0)
[2017-07-18 06:28] LABS: INR 1.35 (0.85-1.17); PROTIME 16.6 SECONDS (11.6-15.0)
--- NOTE | 2017-07-18 06:48 | NUR ---
PT WITH HOB 40, DRINKING A CUP OF COFFEE. PT PAIN 3/10 WILL GIVE SCHEDULED NORCO. PT ASK FOR JELLO, DOES NOT WANT GRITS. PT DENIES ANY OTHER NEEDS NO S/S OF DISTRESS. WILL CPOC
--- NOTE | 2017-07-18 09:18 | NUR ---
AM ROUNDS - PT IS IN BED AND AWAKE AT THIS TIME. NO NEEDS. O2 AT 1.5L VIA NC. LEFT AC PICC, NS AT 100 AND ZOFRAN AT 4.7. 1ST STEP OVERLAY. BILAT TOES ARE BLACK IN COLOR. BED AT LOWEST POSITION. CALL CERON IN USE/REACH. SIDE RAILS UP X2. WILL CONTINUE TO MONITOR
[2017-07-18 12:04] VITALS: BP 97/45
[2017-07-18 16:12] VITALS: BP 96/44
--- NOTE | 2017-07-18 18:55 | NUR ---
PT IN BED WITH NO NEEDS AT THIS TIMWE. BRODERICK CONTINUE TO MONITOR
[2017-07-18 20:00] VITALS: BP 111/50
[2017-07-19] VITALS: BP 104/48
[2017-07-19 04:00] VITALS: BP 128/61
[2017-07-19 06:07] LABS: BASOPHILS 0.4 % (0-2); EOSINOPHILS 3.2 % (0-7); HEMATOCRIT 28.2 % (36.0-48.0); HEMOGLOBIN 9.2 g/dL (12-16); IMMATURE GRANULOCYTES 2.8 % (0-5); LYMPHOCYTES 15.6 % (15-50); MCH 31.3 pg (26.0-34.0); MCHC 32.6 g/dL (31.0-37.0); MCV 95.9 fL (80.0-100.0); MEAN PLATELET VOLUME 8.9 fL (7.4-10.4); MONOCYTES 8.9 % (2-11); NEUTROPHILS 69.1 % (40-80); PLATELET COUNT 268 10x3/uL (130-400); RBC 2.94 10x6/uL (4.00-5.40); RDW 14.9 % (11.5-14.5); WBC 14.5 10x3/uL (4.8-10.8)
[2017-07-19 06:24] LABS: ANION GAP 13.2 mmol/L (8-16); CALCIUM 8.4 mg/dL (8.5-10.1); CARBON DIOXIDE 23.3 mmol/L (21.0-32.0); CREATININE - SERUM 2.1 mg/dL (0.6-1.3); POTASSIUM - SERUM 3.5 mmol/L (3.5-5.1)
--- NOTE | 2017-07-19 07:38 | NUR ---
RECEIVED REPORT ON PATIENT. PATIENT IS LAYING IN BED. DENIES ANY NEEDS AT THIS TIME. CALL LIGHT IN REACH, BED IN LOWEST POSITION AND LOCKED. WILL CONTINUE TO MONITOR. CPOC.
[2017-07-19 08:48] VITALS: BP 100/43
--- NOTE | 2017-07-19 09:15 | NUR ---
PATIENT SITTING UP IN BED, FAMILY AT BEDSIDE. MEDS GIVEN. NO REQUESTS AT THIS TIME. CPOC.
--- NOTE | 2017-07-19 11:47 | NUR ---
MANUAL BP RECHECKED AND BP IS 88/34. SPOKE WITH CHENG CARDENAS AND SHE STATED TO GIVE A 200ML BOLUS OF NS. BOLUS GOING NOW. WILL CONT TO MONITOR.
--- NOTE | 2017-07-19 11:52 | NUR ---
PATIENT SITTING UP IN BED, FAMILY AT BEDSIDE. FSBS 79, NO INSULIN NEEDED AT THIS TIME. NO REQUESTS OR COMPLAINTS. CPOC.
--- NOTE | 2017-07-19 12:15 | NUR ---
PATIENT SITTING UP IN BED, FAMILY AT BEDSIDE. BP RECHECKED, 90/62. NAD NOTED AND NO COMPLAINTS OR REQUESTS AT THIS TIME. CPOC.
[2017-07-19 12:48] VITALS: BP 88/34
--- NOTE | 2017-07-19 13:45 | NUR ---
PATIENT SITTING UP IN BED WITH FAMILY AT BEDSIDE. NO REQUESTS AT THIS TIME. CPOC.
--- NOTE | 2017-07-19 14:15 | NUR ---
Wound care consult: Stage 2 pressure injury on sacrum remains without change. Gently cleansed and dried and covered with mepilex sacral dressing. Pt is on an air overlay mattress and is being turned/repositioned q2h. Toes on left foot were initially covered with blisters (tip of toes and around toenails). Blisters have ruptured and betadine is being applied daily as per Dr. Carbajal. Right foot (toes) are covered with escar. Wound care will monitor.
--- NOTE | 2017-07-19 15:23 | NUR ---
PATIENT SITTING IN BED RESTING. FAMILY AT BEDSIDE. NYSTATIN POWDER NOT GIVEN AT THIS TIME DUE TO PATIENT GETTING A BED BATH, WILL GIVE AT NEXT DOSE TIME. CPOC.
--- NOTE | 2017-07-19 15:36 | NUR ---
PATIENT SITTING UP IN BED WITH FAMILY AT BEDSIDE. PATIENT OFFERED BED BATH AND REFUSED. NO REQUESTS AT THIS TIME. CPOC.
[2017-07-19 16:50] VITALS: BP 118/50
--- NOTE | 2017-07-19 17:32 | NUR ---
PATIENT RESTING IN BED. NO COMPLAINTS AT THIS TIME. CPOC.
--- NOTE | 2017-07-19 19:14 | NUR ---
PATIENT RESTING IN BED, NAD NOTED. ADVISED SHIFT IS ALMOST OVER AND ASKED IF SHE NEEDED ANYTHING BEFORE I LEFT. DENIES ANY NEEDS AT THIS TIME. CPOC.
--- NOTE | 2017-07-19 20:30 | NUR ---
ROUNDING NOTE: PT IS LAYING IN BED ON 1ST STEP OVERLAY. PT IS A,A,OX3. PT IS ON RA. SHE HAS A DOUBLE LUMEN PICCL INE TO LEFT AC W/ NS RUNNING AT 100CC/HR. ZOFRAN DRIP IS CURRENTLY TURNED OFF. VERIFIED IN COMPUTER THAT PT STILL HAS A CURRENT ORDER FOR ZOFRAN DRIP, WHICH SHE DOES, SO I RESTARTED THE DRIP AT 4.7/HR PER MD ORDER. PT DENIES NAUSEA AT THIS TIME. PT HAS SCD'S ON AND HEELS ARE ELEVATED. TOES ARE NOTED TO BE NECROTIC AND OOZING. PATIENT DENIES PAIN AT THIS TIME. WILL CONT TO MONITOR.
[2017-07-19 22:46] VITALS: BP 109/49
[2017-07-20 05:05] VITALS: BP 120/47
[2017-07-20 05:34] LABS: BASOPHILS 0.3 % (0-2); EOSINOPHILS 3.3 % (0-7); HEMATOCRIT 28.1 % (36.0-48.0); HEMOGLOBIN 9.2 g/dL (12-16); IMMATURE GRANULOCYTES 2.3 % (0-5); LYMPHOCYTES 14.5 % (15-50); MCH 31.1 pg (26.0-34.0); MCHC 32.7 g/dL (31.0-37.0); MCV 94.9 fL (80.0-100.0); MEAN PLATELET VOLUME 9.1 fL (7.4-10.4); MONOCYTES 7.8 % (2-11); NEUTROPHILS 71.8 % (40-80); PLATELET COUNT 296 10x3/uL (130-400); RBC 2.96 10x6/uL (4.00-5.40); RDW 14.7 % (11.5-14.5); WBC 13.7 10x3/uL (4.8-10.8)
[2017-07-20 05:50] LABS: ANION GAP 12.9 mmol/L (8-16); CALCIUM 8.4 mg/dL (8.5-10.1); CARBON DIOXIDE 24.3 mmol/L (21.0-32.0); CREATININE - SERUM 2.2 mg/dL (0.6-1.3); POTASSIUM - SERUM 3.2 mmol/L (3.5-5.1)
--- NOTE | 2017-07-20 06:21 | NUR ---
PT'S IV PUMP KEPT GOING OFF FOR THE FIRST HALF OF THE NIGHT STATING OCCLUDED-PATIENT SIDE, WHICH I THOUGHT WAS DUE TO LOCATION OF PT'S PICC LINE BEING HER AC. THEN THE ERROR MESSAGE CHANED TO OCCLUDED-FLUID SIDE, EMPTY CONTAINER, WHICH DIDN'T MAKE ANY SENSE BECAUSE THE PATIENT HAD A FULL BAG OF FLUIDS HANGING AND THE CHAMBER IS FULL. DECIDED TO CHANGE PUMPS AND THERE WERE NO MORE ERRORS WITH A NEW PUMP. WILL CONT TO MONITOR.
--- NOTE | 2017-07-20 07:22 | NUR ---
RECEIVED FROM CLOTH WASHER OPERATOR. MORNING ROUNDS MADE. PATIENT RESTING IN BED WITH EYES CLOSED, BUT AROUSED WHEN SPOKEN TO. SHE DENIES ANY NEEDS AT THIS TIME. CALL LIGHT IN REACH. CPOC.
[2017-07-20 08:00] VITALS: BP 116/45
--- NOTE | 2017-07-20 09:21 | NUR ---
PATIENT LAYING IN BED WITH FAMILY AT BEDSIDE. IV TUBING CHANGED. NO REQUESTS AT THIS TIME. CPOC.
--- NOTE | 2017-07-20 11:38 | NUR ---
PATIENT RESTING IN BED WITH FAMILY AT BEDSIDE. NO REQUESTS AT THIS TIME. CALL LIGHT IN REACH. CPOC.
[2017-07-20 12:00] VITALS: BP 91/30
--- NOTE | 2017-07-20 12:20 | NUR ---
PATIENT SITTING UP IN BED, EATING LUNCH. FAMILY AT BEDSIDE. NO REQUESTS AT THIS TIME. CPOC.
--- NOTE | 2017-07-20 14:42 | NUR ---
PATIENT RESTING IN BED, DENIES ANY NEEDS AT THIS IIME. BED LOW AND LOCKED. CPOC
--- NOTE | 2017-07-20 15:32 | NUR ---
PATIENT SITTING UP IN BED. NO REQUESTS AT THIS TIME. NAD NOTED. CALL LIGHT IN REACH. CPOC.
[2017-07-20 15:39] VITALS: BP 121/49
--- NOTE | 2017-07-20 17:41 | NUR ---
PATIENT SITTING IN BED. MEDS GIVEN. NO REQUESTS AT THIS TIME. CALL LIGHT IN REACH. CPOC.
--- NOTE | 2017-07-20 19:19 | NUR ---
END OF SHIFT ROUND MADE. PATIENT LAYING IN BED WITH EYES CLOSED BUT EASILY AROUSED. NO NEEDS/REQUESTS AT THIS TIME. CALL LIGHT IN REACH. CPOC.
--- NOTE | 2017-07-20 19:46 | NUR ---
PT IN BED WATCHING TELEVISION DENIES NEEDS AT THIS TIME.
[2017-07-20 22:54] VITALS: BP 167/56
[2017-07-21 04:27] VITALS: BP 156/61
[2017-07-21 06:34] LABS: BASOPHILS 0.2 % (0-2); HEMATOCRIT 27.8 % (36.0-48.0); HEMOGLOBIN 9.1 g/dL (12-16); IMMATURE GRANULOCYTES 2.4 % (0-5); LYMPHOCYTES 14.3 % (15-50); MCH 31.1 pg (26.0-34.0); MCHC 32.7 g/dL (31.0-37.0); MCV 94.9 fL (80.0-100.0); MONOCYTES 8.2 % (2-11); NEUTROPHILS 71.9 % (40-80); PLATELET COUNT 306 10x3/uL (130-400); RBC 2.93 10x6/uL (4.00-5.40); RDW 14.7 % (11.5-14.5); WBC 13.6 10x3/uL (4.8-10.8)
[2017-07-21 06:44] LABS: ANION GAP 13.4 mmol/L (8-16); CREATININE - SERUM 2.2 mg/dL (0.6-1.3); POTASSIUM - SERUM 3.4 mmol/L (3.5-5.1)
--- NOTE | 2017-07-21 07:01 | NUR ---
RN NOTE: PT LAYING IN BED STABLE THROUGHOUT THE NIGHT. REMAINS ON IVF, NS @ 100CC/HR. PT CONTINUES TO C/O BACK PAIN AND IS RECEIVING ULTRAM FOR THAT. SHE DENIES PAIN RELATED TO HER NECROTIC TOES. PT DENIES ANY FURTHER NEEDS, WILL CONT TO MONITOR.
--- NOTE | 2017-07-21 07:30 | NUR ---
INTRODUCED MYSELF TO PT PRIMARY RN FOR TODAYS SHIFT. PT A&O LYING BACK IN BED RESTING QUIETLY WITH FAMILY AT BEDSIDE. SHIFT ASSESSMENT COMPLETED. PT DENIES ANY CURRENT PAIN OR NEEDS AT THIS TIME. CL IN REACH, BED IN LOWEST, SIDE RAILS X2. WILL CPOC.
[2017-07-21 08:37] VITALS: BP 112/52
--- NOTE | 2017-07-21 11:55 | NUR ---
PROVIDED PT WITH PRN ROBAXIN FOR MS. PT SITTING UP IN BED READY TO EAT LUNCH STATES SHES BEEN FEELING WELL OVERALL AND DENIES ANY NAUSEA OR VOMITING. PT HAS FAMILY AT BEDSIDE AND ARE JUST RESTING. CL IN REACH, BED IN LOWEST, SIDE RAILS X2. WILL CPOC.
[2017-07-21 12:13] VITALS: BP 115/56
--- NOTE | 2017-07-21 13:01 | NUR ---
Patient Name: FAN PAZ Admission Status: Elective Accout number: [id number] Admission Date: 07-16-2017 : 1950 Admission Diagnosis:NAUSEA WITH VOMITING, UNSPECIFIED Attending: JHON ALMONTE Current LOS: 5 Anticipated DC Date: 07-22-2017 Planned Disposition: Inpatient Rehab Primary Insurance: MEDICARE A & B PLANNED EXTERNAL PROVIDER: [facility] Discharge Planning Comments: * Is the patient Alert and Oriented? Yes 0 * How many steps to enter\exit or inside your home? RAMP 0 * PCP DR. LANCASTER 0 * Pharmacy [facility] [address] 0 * Preadmission Environment Acute Inpatient Rehab 0 * Facility Name [facility] 0 * ADLs Partial Dependent 0 * Partial ADLs (Assistance needed) Ambulation Bathing Medication Management 0 * Equipment Other 0 * Other Equipment ALL MEDICAL EQUIPMENT PROVIDED BY REHAB. PT HAS AT HOME: CPAP, OXYGEN, ROLLING WALKER, SHOWER CHAIR, WALKER 0 * List name and contact numbers for known caregivers / representatives who currently or will assist patient after discharge: ANDREY, PARTNER, 0 * Community resources currently utilized None 0 * Please name any agencies selected above. NONE 0 * Additional services required to return to the preadmission environment? Yes * Can the patient safely return to the preadmission environment? Yes 0 * Has this patient been hospitalized within the prior 30 days at any hospital? Yes 0 CM SPOKE TO [facility] OF [facility]PATIENT [facility], THEY WILL CONSIDER PT FOR READMISSION IF OFF THE BUMEX DRIP AND ABLE TO PARTICIPATE FULLY WITH THERAPY. CM MET WITH PT AND PARTNER IN ROOM TO DISCUSS DISCHARGE PLANNING AND NEEDS. PT REPORTS LIVING AT HOME INDEPENDENTLY WITH HER PARTNER. PT HAS ALL NEEDED EQUIPMENT AT HOME WITH NO OUTSIDE SERVICES ASSISTING IN THE HOME. PRIOR TO LAST HOSPITALIZATION AND ADMISSION TO [facility]. CM DISCUSSED AVAILABILITY OF HOME HEALTH, REHAB SERVICES AND MEDICAL EQUIPMENT. PT AND PARTNER STATE PT WILL NEED REHAB BEFORE GOING HOME; THEY WOULD LIKE FOR PT TO GET BACK TO [facility]. PT'S PARTNER WILL PICK HER UP FOR DISCHARGE HOME. IMPORTANT MESSAGE FROM MEDICARE PROVIDED AND EXPLAINED. JOSE CARDENAS NOTIFIED. CM WAITING EVALUATION BY PHYSICAL THERAPY, MEDICAL STABILITY AND ACCEPTANCE FROM [facility]. Stave Bolt Equalizer: Kalyan Goldsmith
--- NOTE | 2017-07-21 14:12 | NUR ---
Rehab Prescreening Consult recieved and the chart has been reviewed. She is well known from a recent stay on rehab. She meets criteria for the IRF and has agreed to participate in the required therapy. She will be accepted when the physician feels she is medicall stable and able to participate in 3 hrs of therapy a day 5 days a week. Discussed with the CM Kiko Goldsmith. Lucille Thomason RN Clinical Liaison, Rehab
[2017-07-21 14:22] LABS: FUNGUS STAIN Final report (())
[2017-07-21 15:28] VITALS: BP 141/54
--- NOTE | 2017-07-21 20:00 | NUR ---
PT IS RESTING IN BED WITH EYES OPEN. ALERT AND ORIENTED X 3. DENIES ACUTE PAIN OR DISCOMFORT. NECROTIC TOES ARE OPEN TO AIR. LEFT ARM PICC LINE NOTED. RESTING ON A 1ST STEP MATTRESS. SR'S ARE UP X 3 IN BED. CALL LIGHT AND BEDSIDE TABLE ARE WITHIN EASY REACH.
[2017-07-21 21:14] VITALS: BP 131/46
--- NOTE | 2017-07-21 21:56 | NUR ---
PT IS RESTING IN BED WATCHING TV. NO NEEDS VOICED.
[2017-07-21 23:29] VITALS: BP 133/50
--- NOTE | 2017-07-22 02:04 | NUR ---
PT RESTING IN BED WITH EYES CLOSED.
--- NOTE | 2017-07-22 02:32 | NUR ---
PT RESTING IN BED WITH EYES CLOSED. NO DISTRESS NOTED.
[2017-07-22 04:05] VITALS: BP 103/41
--- NOTE | 2017-07-22 04:47 | NUR ---
PT RESTING IN BED WITH EYES CLOSED.
--- NOTE | 2017-07-22 05:30 | NUR ---
EDGE PLUGGER AT BEDSIDE TO OBTAIN VITALS, WILL CONTINUE WITH PLAN OF CARE. CALL LIGHT IN REACH.
--- NOTE | 2017-07-22 07:59 | NUR ---
INTRODUCED MYSELF TO PT PRIMARY RN FOR TODAYS SHIFT. PT A&O SITTING UP IN BED WATCHING TV. ATTEMPTED LAB DRAW FROM R.AC PICC LINE DOUBLE LUMEN HOWEVER NO BLOOD RETURN WAS NOTED FLUSHED BOTH LUMENS AND A LOT OF RESISTANCE WAS MET, WILL SEE ABOUT GETTING ATIVASE OR BLOOD THINNER IN LINE. PT STATES SHE SLEPT GOOD BUT NEVER LONG ENOUGH. PT ON OVERLAY AIR MATTRESS. SANCHEZ IN PLACE DRAINING TO GRAVITY OFF R.SIDE OF BED WITH STAT LOCK SECURED TO R.INNER THIGH. PTS TOES ON BILAT FEET ARE NECROTIC AND HAVING BETADINE APPLIED DAILY AND LEFT ORACLE PROGRAMMER, PULSES PALP AND NORMAL. PT REQUESTED AND WAS PROVIDED WITH PRN ROBAXIN FOR LEG SPASMS. PT VOICED THANKS AND IS WAITING ON BREAKFAST, DENIES ANY FURTHER NEEDS AT THIS TIME. CL IN REACH, BED IN LOWEST, SIDE RAILS X2 AND BUILT IN BED ALARM ON. WILL CPOC.
[2017-07-22 08:06] LABS: BASOPHILS 0.3 % (0-2); EOSINOPHILS 2.9 % (0-7); HEMOGLOBIN 9.6 g/dL (12-16); IMMATURE GRANULOCYTES 2.5 % (0-5); LYMPHOCYTES 14.5 % (15-50); MCH 31.2 pg (26.0-34.0); MCHC 33.1 g/dL (31.0-37.0); MCV 94.2 fL (80.0-100.0); MEAN PLATELET VOLUME 8.8 fL (7.4-10.4); MONOCYTES 6.2 % (2-11); NEUTROPHILS 73.6 % (40-80); PLATELET COUNT 322 10x3/uL (130-400); RBC 3.08 10x6/uL (4.00-5.40); RDW 14.5 % (11.5-14.5); WBC 14.9 10x3/uL (4.8-10.8)
[2017-07-22 08:27] LABS: ANION GAP 16.5 mmol/L (8-16); CALCIUM 8.8 mg/dL (8.5-10.1); CARBON DIOXIDE 23.9 mmol/L (21.0-32.0); CREATININE - SERUM 2.3 mg/dL (0.6-1.3); POTASSIUM - SERUM 3.4 mmol/L (3.5-5.1)
[2017-07-22 08:55] VITALS: BP 91/34
--- NOTE | 2017-07-22 10:35 | NUR ---
PT ACCEPTED INTO INPATIENT REHAB AND IS WORKING WITH PHYSICAL THERAPY NOW TO TRANSFER TO W/C. PT DENIES ANY CURRENT PAIN OR NEEDS. WILL CPOC.
--- NOTE | 2017-07-22 11:12 | NUR ---
Patient Name: FAN PAZ Encounter No: [id number] : 1950 Primary Insurance: MEDICARE A & B Anticipated DC Date: 07-22-2017 Planned Disposition: Inpatient Rehab External Planned Provider: [facility] DCP follow-up note: CM SPOKE TO [facility]PAT[facility], THEY PLAN TO ACCEPT PT FOR REHAB. PT NOTIFIED, IN AGREEMENT WITH DISCHARGE TO INPATIENT REHAB. JOSE CARDENAS NOTIFIED. DISCHARGE ORDERS RECEIVED. [facility] TO CONTACT MED 2 NURSE WITH ROOM NUMBER WHEN READY TO ACCEPT PT AND NURSE REPORT. Kalyan Goldsmith, CASE MANAGEMENT
--- NOTE | 2017-07-22 11:20 | NUR ---
FSBS 102 NO SS INSULIN REQUIRED.
[2017-07-22 12:05] VITALS: BP 107/47
--- NOTE | 2017-07-22 12:29 | NUR ---
PT C/O HER BOTTOM HURTING, PLACED AN EGG CRATE UNDERNEATH HER FOR COMFORT. WILL CPOC.
--- NOTE | 2017-07-22 12:38 | NUR ---
REPORT CALLED TO [facility] FROM INPATIENT REHAB. WILL COLLECT PTS BELONGINGS AND GET HER DOWN TO ROOM 1118B
--- NOTE | 2017-07-22 13:41 | NUR ---
BELONGINGS COLLECTED AND PAPERS SIGNED. PT READY TO LEAVE FOR REHAB. NO FURTHER NEEDS WILL TRANSPORT DOWN NOW.
[2017-07-27 13:17] LABS: FUNGUS CULTURE RESULT 1 Candida albicans (())
[2017-08-16 11:12] LABS: FUNGUS MYCOLOGY CULTURE Final report (())
== END 2017-07-22 13:52 | DRG 73 ==
LOC: D.M2 15:36
PROVIDERS: Family Medicine; Internal Medicine Gastroenterology; Urology; ADMIT Emergency Medicine
PROC: 0DB78ZX Excision of Stomach, Pylorus, Via Natural or Artificial Opening Endoscopic, Diagnostic (ICD-10-PCS; principal; 2017-07-16)
DX: E11.43 Type 2 diabetes mellitus with diabetic autonomic (poly)neuropathy (principal); K85.90 Acute pancreatitis without necrosis or infection, unspecified; E11.52 Type 2 diabetes mellitus with diabetic peripheral angiopathy with gangrene; N17.9 Acute kidney failure, unspecified; E87.1 Hypo-osmolality and hyponatremia; K31.84 Gastroparesis; K44.9 Diaphragmatic hernia without obstruction or gangrene; K29.70 Gastritis, unspecified, without bleeding; I10 Essential (primary) hypertension; J44.9 Chronic obstructive pulmonary disease, unspecified; I25.10 Atherosclerotic heart disease of native coronary artery without angina pectoris; I50.9 Heart failure, unspecified; G47.33 Obstructive sleep apnea (adult) (pediatric); Z99.81 Dependence on supplemental oxygen; D64.9 Anemia, unspecified

== ENCOUNTER 2017-07-22 13:17 | Inpatient (IN) | payer MEDICARE, BC ==
[~2017-07-22] VITALS: Ht 162.6 cm; Wt 88.5 kg
[2017-07-22 13:43] VITALS: BP 107/45; BMI 33.5
--- NOTE | 2017-07-22 15:36 | NUR ---
PATIENT ADMITTED TO REHAB FROM ACUTE FLOOR. DR. LANCASTER IS HER PCP, [facility] IS HER PHARMACY. DME AT HOME:C-PAP, O2, ROLLING WALKER, SHOWER CHAIR. WILL CONTINUE TO FOLLOW WITH PATIENT AND WILL ASSIST WITH DISCHARGE NEEDS.
--- NOTE | 2017-07-22 19:17 | NUR ---
SHIFT REPORT COMPLETE.
[2017-07-22 20:40] VITALS: BP 120/51
--- NOTE | 2017-07-22 22:05 | NUR ---
REST IN BED, HOB 30 DEGREE, CALL LIGHT IN REACH.
--- NOTE | 2017-07-22 23:58 | NUR ---
SHIFT REPORT COMPLETED.
--- NOTE | 2017-07-23 00:35 | NUR ---
AWOKE PATIENT AND ASSISTED HER TO EMPLACE CPAP MASK AND START CPAP THERAPY SHE HAD EARLIER TOLD ME SHE WANTED TO WEAR IT TONIGHT.
--- NOTE | 2017-07-23 03:14 | NUR ---
REST IN BED, EYE CLOSE, CALL LIGHT IN REACH.
--- NOTE | 2017-07-23 04:25 | NUR ---
REST IN BED, CALL LIGHT IN REACH.
[2017-07-23 05:48] LABS: BASOPHILS 0.3 % (0-2); HEMATOCRIT 27.6 % (36.0-48.0); HEMOGLOBIN 9.2 g/dL (12-16); IMMATURE GRANULOCYTES 3.3 % (0-5); LYMPHOCYTES 15.8 % (15-50); MCHC 33.3 g/dL (31.0-37.0); MCV 92.9 fL (80.0-100.0); MEAN PLATELET VOLUME 9.4 fL (7.4-10.4); MONOCYTES 7.1 % (2-11); NEUTROPHILS 70.5 % (40-80); PLATELET COUNT 356 10x3/uL (130-400); RBC 2.97 10x6/uL (4.00-5.40); RDW 14.4 % (11.5-14.5); WBC 14.1 10x3/uL (4.8-10.8)
[2017-07-23 06:14] LABS: ANION GAP 16.7 mmol/L (8-16); CALCIUM 9.3 mg/dL (8.5-10.1); CARBON DIOXIDE 25.2 mmol/L (21.0-32.0); CREATININE - SERUM 2.3 mg/dL (0.6-1.3)
[2017-07-23 06:17] LABS: POTASSIUM - SERUM 2.9 mmol/L (3.5-5.1)
[2017-07-23 08:42] VITALS: BP 125/53
--- NOTE | 2017-07-23 10:20 | NUR ---
PT AM MEDS ADMINISTERED. PT PATRICK MCCURDY. HAKAN.
--- NOTE | 2017-07-23 11:15 | NUR ---
PT REQ AND REC'D PRN PAIN MED. WCTM.
[2017-07-23 12:33] VITALS: Ht 162.6 cm; Wt 88.5 kg
--- NOTE | 2017-07-23 16:05 | NUR ---
PT REQUESTING ANIL STATING SHE WAS ON IT UPSTAIRS. SPOKE WITH DR ALMONTE. ANIL ORDERED AND GIVEN TO PT.
--- NOTE | 2017-07-23 17:58 | NUR ---
PT K+ 3.2. ELECTOLYTE PROTOCOL OF 40 MEQ GIVEN. LABS ORDERED FOR RECHECK.
--- NOTE | 2017-07-23 19:40 | NUR ---
PT IN BED WITH HOB UP FOR COMFORT. WATCHING TV. NO O2. LEFT UPPER EXT. PICC. FSBS ACHS. ELECTROLYTE PROTOCOL. SANCHEZ. FSBS ACHS. 1ST STEP MATTRESS. TOES ARE BLACK. BED IN LOWEST POSITION AND CALL LIGHT WITHIN REACH.
[2017-07-23 20:53] VITALS: BP 115/41
--- NOTE | 2017-07-23 23:40 | NUR ---
PT IN BED WITH HOB UP FOR COMFORT. WATCHING TV. CPAP ON. BED IN LOWEST POSITION AND CALL LIGHT WITHIN REACH.
--- NOTE | 2017-07-24 01:20 | NUR ---
IN BED, EYES CLOSED. RESPIRATIONS UNLABORED.
--- NOTE | 2017-07-24 04:27 | NUR ---
PT LYING IN BED WITH HOB UP FOR COMFORT. EYES CLOSED. RESPIRATIONS EVEN AND UNLABORED. BED IN LOWEST POSITION AND CALL LIGHT WITHIN REACH.
[2017-07-24 10:29] VITALS: BP 135/43
--- NOTE | 2017-07-24 19:55 | NUR ---
PT. IN BED WITH HOB UP FOR COMFORT AND IS WATCHING TV. ASSESSMENT COMPLETED. SANCHEZ TO D WITHOUT PROBLEMS. PT. PLACES HER OWN C-PAP EQUIPMENT ON SHE NEEDS IT. CALL LIGHT WITHIN REACH.
[2017-07-24 20:15] VITALS: BP 159/50
--- NOTE | 2017-07-24 23:21 | NUR ---
PT. IN BED WITH HOB UP FOR COMFORT WITH EYES CLOSED AND RESP. EVEN. NASAL CPAP IN PLACE AND NO S/S DISTRESS OBSERVED. SANCHEZ TO BSD WITHOUT PROBLEMS AND HER CALL LIGHT IS WITHIN REACH.
--- NOTE | 2017-07-25 03:12 | NUR ---
PT. IN BED WITH HOB UP FOR COMFORT WITH NASAL C-PAP ON WITHOUT ANY S/S DISTRESS. EYES CLOSED AND RESP. EVEN. WITH CALL LIGHT WITHIN REACH.
--- NOTE | 2017-07-25 08:00 | NUR ---
SHIFT ASSMT COMPLETED.
[2017-07-25 09:05] VITALS: BP 131/40
--- NOTE | 2017-07-25 12:00 | NUR ---
EATING LUNCH.DENIES NEEDS.
--- NOTE | 2017-07-25 14:03 | NUR ---
Left upper arm PICC line removed related to partial exertion of line to 44cm. Insertion site was cleaned with chloraprep, line was removed completely to 52cm. Tip intact. No redness or drainage noted. Site covered with sterile 2x2 guaze and tegaderm. Pt informed that dressing would be removed in 24 hours and another placed if needed. Instructions given to Randa Devries RN.
--- NOTE | 2017-07-25 16:00 | NUR ---
HAD PULLED AT PICC LINE.REMOVED BY YOUTUBER.DRSG IN PLACE TO LT UPPER ARM.
--- NOTE | 2017-07-25 19:50 | NUR ---
PT. IN BED ON FIRST STEP MATTRESS AND IS WATCHING TV. NO VOICED NEEDS AT THIS TIME. SANCHEZ TO BSD WITHOUT PROBLEMS. CALL LIGHT WITHIN REACH.
[2017-07-25 20:15] VITALS: BP 117/46
--- NOTE | 2017-07-25 23:35 | NUR ---
PT. IN BED WITH HOB UP FOR COMFORT AND IS WATCHING TV. PT. REMAINS ON FIRST STEP MATTRESS AND HER SANCHEZ IS TO BSD WITHOUT PROBLEMS. CALL LIGHT REMAINS WITHIN REACH.
--- NOTE | 2017-07-26 03:21 | NUR ---
PT. IN BED WITH HOB UP FOR COMFORT AND PT. IS WEARING HER NASAL C-PAP EQUIPMENT. EYES CLOSED AND RESP. EVEN. NO S/S RESP. DISTRESS OBSERVED. SANCHEZ TO BSD WITHOUT PROBLEMS. FIRST STEP MATTRESS ON WITHOUT ANY ALARMS. CALL LIGHT WITHIN REACH.
[2017-07-26 06:04] LABS: BASOPHILS 0.4 % (0-2); HEMATOCRIT 28.2 % (36.0-48.0); HEMOGLOBIN 9.3 g/dL (12-16); IMMATURE GRANULOCYTES 4.5 % (0-5); LYMPHOCYTES 16.6 % (15-50); MCH 31.2 pg (26.0-34.0); MCV 94.6 fL (80.0-100.0); MEAN PLATELET VOLUME 9.5 fL (7.4-10.4); MONOCYTES 9.3 % (2-11); NEUTROPHILS 65.2 % (40-80); PLATELET COUNT 385 10x3/uL (130-400); RBC 2.98 10x6/uL (4.00-5.40); RDW 14.4 % (11.5-14.5); WBC 12.6 10x3/uL (4.8-10.8)
[2017-07-26 06:17] LABS: ANION GAP 14.7 mmol/L (8-16); CALCIUM 9.4 mg/dL (8.5-10.1); CARBON DIOXIDE 25.4 mmol/L (21.0-32.0); CREATININE - SERUM 2.4 mg/dL (0.6-1.3)
[2017-07-26 06:20] LABS: POTASSIUM - SERUM 3.1 mmol/L (3.5-5.1)
[2017-07-26 09:28] VITALS: BP 108/43
--- NOTE | 2017-07-26 10:42 | NUR ---
LAYING IN BED WATCHING TV. DENIES NEEDS OR PAIN. CALL LIGHT IN REACH. ENCOURAGED PT TO ROLL OFF BACK TO HELP PREVENT SKIN BREAKDOWN.
--- NOTE | 2017-07-26 12:07 | RHP ---
PATIENT: FAN PAZ MEDICAL RECORD: [id number] ACCOUNT: [id number] LOCATION:[facility]1118 : 50 ADMISSION DATE: 07/22/17 REHABILITATION HISTORY AND PHYSICAL EXAMINATION POST ADMISSION PHYSICIAN EXAMINATION DATE OF ADMISSION: 07/22/2017. ADMITTING DIAGNOSES: Critical illness myopathy. 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 Ms. Paz and her partner were vacationing in [place] approximately 1 month ago when she developed urinary spasms. She took Pyridium and her symptoms resolved a week later, she developed a high fever and mental status changes. She presented to the Emergency Room where she was found to be in septic shock with Gram-negative bacteria, which later grew out E. coli. She ended up being intubated on the vent for approximately 12 days and in the ICU for a total of 15 days before she was extubated. She developed gangrene and necrosis. She also got a decubitus on her buttocks, which were stage II. She had a renal failure and had to be dialyzed 6 times. Her creatinine is now down to 2.1. She is a diabetic, but she is doing well from that standpoint. She was transferred to the inpatient rehab on 07/15/2017 for strengthening. Within the first 24 hours, she developed severe nausea and vomiting, was transferred back to the acute floor. An EGD showed hiatal hernia, gastritis related to the nausea and vomiting, was secondary to gastroparesis. She was started on Reglan 10 mg IV and Protonix. Urology was consulted for abnormal appearing left kidney on her CT scan. The inflammatory changes seen on CT scan are indicative of pyelonephritis. She has had no further nausea and vomiting. She is tolerating a diabetic diet at this time. She is currently max to total assist for ADLs and mobility, says that she has not been out of bed or attempted to stand since 06/20/2017 except for the use or Ilan lift. She has fair balance, proximal lower extremity weakness and fatigue. She tires easily and has increased dyspnea on exertion. She hopes to regain her strength and return home with her partner. COMORBIDITIES: Include hypothyroidism, diabetes, COPD, dysphagia, severe sepsis, diabetes related to gastroparesis, hyponatremia, hypokalemia, fatigue, weakness, gangrene of her toes, dehydration, leukocytosis, acute kidney injury, hypertension, CHF, coronary artery disease, old CA, obstructive sleep apnea, Graves disease, ischemic necrosis, and Gram-negative septicemia. PAST MEDICAL HISTORY: Significant for cataracts. She has got a history of hypertension, CHF, and CA in the past, obstructive sleep apnea. PAST SURGICAL HISTORY: Includes gallbladder surgery, tonsillectomy, adenoidectomy, hysterectomy, bilateral knee replacement, bladder lift, lumbar discectomy, left shoulder scope, laminectomy, and a cyst removal in the past. ALLERGIES: OXYCODONE, CEFTIN, SULFA, CODEINE, and MACRODANTIN. HISTORY AND PHYSICAL [id number] FAN PAZ CURRENT MEDICATIONS: Include tramadol 100 mg q.6 hours p.r.n., Gabitril 4 mg q.i.d., Effexor XR 150 mg daily. She is on a potassium and sodium replacement protocol at this time secondary to low potassium. Her Synthroid is 25 mcg daily that she takes along with a 200 mcg tablet. She is on potassium chloride 10 mEq daily along with a 20 mEq dose, MiraLax 17 grams in 8 ounces of water daily, Protonix 40 mg daily, lactobacillus 1 tab daily, Flonase nasal spray daily. She is on Caltrate daily, aspirin chew 81 mg daily, Calmoseptine as needed. She is on a glucose replacement protocol. She is on Zofran 4 mg q.4 hours p.r.n. She is on nystatin powder. She is on Singulair 10 mg q.h.s., metoprolol 25 mg b.i.d., Reglan 10 mg q.a.c. and q.h.s., furosemide 40 mg b.i.d., Advair 250/50 one inhalation b.i.d., Vasotec p.r.n. elevated blood pressure, Ventolin HFA as needed, Tudorza 1 puff b.i.d., and Tylenol 500 mg q.6 hours p.r.n. HABITS: No alcohol or tobacco use. FAMILY HISTORY: Noncontributory. SOCIAL HISTORY: The patient hopes to return back home with her significant other and get back to her prior level of functioning. REVIEW OF SYSTEMS: GENERAL: Does complain of weakness and fatigue. HEENT: Denies cold, cough, or congestion. CARDIOVASCULAR: Denies chest pain. PHYSICAL EXAMINATION: VITAL SIGNS: Stable, afebrile. GENERAL: A well-developed, somewhat obese female in no acute distress, alert upon exam. HEENT: Normocephalic and atraumatic. Mucosa moist. NECK: Supple. No lymphadenopathy. LUNGS: Clear at this time. HEART: Regular rate and rhythm. ABDOMEN: Benign. EXTREMITIES: Does have some noted discoloration to her toes, which are indicative of dry gangrene. NEUROLOGIC: Intact. LABORATORY DATA: Admit blood count: Her white count is 14.1, H&H 9.2 and 27.6, and platelet count 356. Her sodium is 130, potassium 2.9, BUN and creatinine of 25 and 2.3, and blood sugar is noted to be 108. ASSESSMENT: This is a 67-year-old female patient admitted to rehab with a working diagnosis of critical illness myopathy. The patient has potential to make improvement. We instituted the following multidisciplinary therapies including to, but not limited to physical, occupational, respiratory, speech, nutritional services, prosthetics and orthotics. Given her complex condition and risk for more complications, rehabilitation services cannot be provided at a lower level of care such as a snf facility. PLAN: 1. Admit to [facility] rehab for intensive inpatient therapy to include the following disciplines: A. Physical therapy to improve gait, all transfer skills, and bed mobility to a modified independent level. HISTORY AND PHYSICAL [id number] FAN PAZ B. Occupational therapy to improve activities of daily living to a modified independent level. C. Case management to assist with discharge planning and placement options. D. Nutrition to assist with nutritional needs. E. Rehabilitation nursing to assist in monitoring the patient's underlying medical conditions and to assist with any type of bowel or bladder management. 2. The patient's current medication and medical care will be continued. 3. The patient will be placed on standard fall precautions. 4. The patient's estimated length of stay is approximately 7-10 days. 5. We will watch her extremities closely, involve wound care as needed, and follow up as needed. TRANSINT:[id number] Voice Confirmation ID: [id number] DOCUMENT ID: [id number] ELDON notes whether there has been none or any medical/functional change since admission: - No change since prescreen. ELDON attests patient continues to be appropriate for IRF: - Continues to be appropriate. JHON ALMONTE MD at 1207 CC: [id number] DICTATION DATE: 07/23/17 0844 CONTRACT NEGOTIATION MANAGER: 07/23/17 1051 ADM IN [facility] [address] [id number]
--- NOTE | 2017-07-26 12:21 | NUR ---
SITTING UP IN W/C IN ROOM EATING LUNCH. DENIES NEEDS. CALLL LIGHT IN REACH
--- NOTE | 2017-07-26 19:42 | NUR ---
PT IN BED WITH HOB UP FOR COMFORT. WATCHING TV. ALERT & ORIENTED. NO O2. NO IV. SANCHEZ. FSBS ACHS. 05/16 TIPS OF TOES ARE BLACK. 1ST STEP MATTRESS. CPAP @ NIGHT. BED IN LOWEST POSIITON AND CALL LIGHT WITHIN REACH.
--- NOTE | 2017-07-26 22:50 | NUR ---
IN BED ON AIR MATTRESS. OTHER THAN HER ROOMMATE MOANING, HAS NO C/O AT THIS TIME.
[2017-07-26 22:57] VITALS: BP 102/31
--- NOTE | 2017-07-26 23:04 | NUR ---
ASSISTED PT WITH CPAP.
--- NOTE | 2017-07-27 03:05 | NUR ---
PT COMPLAINING OF ROOMATE KEEPING HER UP. I APOLOGIZE AND LET HER KNOW IM DOING EVERY THING I CAN POSSIBLY THINK OF.
--- NOTE | 2017-07-27 04:46 | NUR ---
PT IN BED WITH HOB UP FOR COMFORT. EYES CLOSED. CHEST RISING AND FALLING. BED IN LOWEST POSITION AND CALL LIGHT WITHIN REACH.
[2017-07-27 05:48] LABS: BASOPHILS 0.5 % (0-2); EOSINOPHILS 3.8 % (0-7); HEMATOCRIT 27.5 % (36.0-48.0); HEMOGLOBIN 9.2 g/dL (12-16); IMMATURE GRANULOCYTES 3.6 % (0-5); LYMPHOCYTES 15.6 % (15-50); MCH 31.3 pg (26.0-34.0); MCHC 33.5 g/dL (31.0-37.0); MCV 93.5 fL (80.0-100.0); MEAN PLATELET VOLUME 9.2 fL (7.4-10.4); MONOCYTES 9.7 % (2-11); NEUTROPHILS 66.8 % (40-80); PLATELET COUNT 369 10x3/uL (130-400); RBC 2.94 10x6/uL (4.00-5.40); RDW 14.2 % (11.5-14.5); WBC 12.1 10x3/uL (4.8-10.8)
[2017-07-27 06:01] LABS: ANION GAP 12.9 mmol/L (8-16); CALCIUM 9.4 mg/dL (8.5-10.1); CARBON DIOXIDE 28.2 mmol/L (21.0-32.0); CREATININE - SERUM 2.3 mg/dL (0.6-1.3); POTASSIUM - SERUM 3.1 mmol/L (3.5-5.1)
--- NOTE | 2017-07-27 10:35 | NUR ---
Nutrition Follow Up: Pt is eating 85% meal avg on a diabetic diet. +BM 07/26/17. Labs reviewed-Na is low. Meds noted including Lasix. Rec continue current diet. RD following.
--- NOTE | 2017-07-27 14:36 | NUR ---
SITTING IN W/C IN ROOM. IS WEAK BUT DENIES INCREASED DISCOMFORT. STATES HER BUTTOCK IS SORE. HAS AIR MATTRESS ON BED. 9/10 TOES BLACK.
[2017-07-27 15:08] VITALS: BP 134/56
[2017-07-27 20:00] VITALS: BP 110/52
--- NOTE | 2017-07-27 20:00 | NUR ---
PT IS RESTING IN BED WITH EYES OPEN. ALERT AND ORIENTED X 3. DENIES ACUTE DISCOMFORT AT THIS TIME. TOES TO BILAT FEET NOTED TO BE BLACK. PT REQUESTS THEM TO BE UNCOVERED, STATING THE BLANKET HURTS THEM. PT RESTING ON A FIRST STEP MATTRESS. SANCHEZ CATH PATENT AND DRAINING TO A GRAVITY BAG. SR'S ARE UP X 3 IN BED. CALL LIGHT AND BEDSIDE TABLE ARE WITHIN EASY REACH.
--- NOTE | 2017-07-27 22:10 | NUR ---
PT RESTING IN BED WITH EYES CLOSED. NO ACUTE DISTRESS NOTED. CPAP IS ON.
--- NOTE | 2017-07-28 00:01 | NUR ---
RESTING IN BED WITH EYES CLOSED.
--- NOTE | 2017-07-28 05:51 | NUR ---
PT RESTING QUIETLY IN BED WITH EYES CLOSED. RESPS ARE EVEN AND UNLABORED. NO ACUTE DISTRESS NOTED.
[2017-07-28 06:35] LABS: ANION GAP 15.9 mmol/L (8-16); CALCIUM 9.4 mg/dL (8.5-10.1); CARBON DIOXIDE 25.4 mmol/L (21.0-32.0); POTASSIUM - SERUM 3.3 mmol/L (3.5-5.1)
--- NOTE | 2017-07-28 06:46 | NUR ---
K+ 3.3 THIS AM. MEDICATED WITH POTASSIUM 40 MEQ PO.
--- NOTE | 2017-07-28 08:00 | NUR ---
SHIFT ASSMT COMPLETED.DENIES NEEDS.
--- NOTE | 2017-07-28 08:00 | NUR ---
SHIFT ASSMT COMPLETED.CL IN REACH.
[2017-07-28 08:20] VITALS: BP 118/50
--- NOTE | 2017-07-28 12:00 | NUR ---
DENIES NEEDS.CL IN REACH.
--- NOTE | 2017-07-28 13:42 | NUR ---
Wound care consult: Pt has a stage 2 pressure injury on sacrum. It measures 1.5cm x 2cm. Red wound bed. Blanchable skin surrounding wound. Pt has had this wound since her first admission into hospital approx a month ago. It has decreased in size and is healing. She also has a scratch on her right buttock that measures 0.3cm x 7cm. It too is healing. Discussed with pt and her friend importance of repositioning herself to relieve pressure from her sacrum. They both voiced understanding. Calmoseptine cream is what is currently being used for both areas. Recommend continuing. Wound care will continue to monitor.
--- NOTE | 2017-07-28 16:27 | NUR ---
CARE TEAM MEETING: PARTNER ATTENDED MEETING. TENATIVE DISCHARGE DATE IS 08/06/17. WILL CONTINUE TO FOLLOW WITH PATIENT. BARRIORS TO COMING HOME WERE DISCUSSED.
--- NOTE | 2017-07-28 20:05 | NUR ---
PT. IN BED ON FIRST STEP MATTRESS WITH HOB UP FOR COMFORT AND IS WATCHING TV. ASSESSMENT COMPLETED. BLADDER TRAINING CONTINUES PER SCHEDULE BUT PT. HAS ALREAD LEAKED THRU HER BRIEF AND BLUE PAD. ASSISTED WITH CHANGING PT'S BRIEF AND A NEW BLUE PAD PLACED UNDERNEATH PT. INSTRUCTED PT. TO TURN OFF HER BUTTOCK TONIGHT TO ALLOW BLOOD FLOW TO SACRAL AREA SKIN/TISSUE. PT. STATES SHE WILL TRY. CALL LIGHT WITHIN REACH.
[2017-07-28 20:15] VITALS: BP 119/48
--- NOTE | 2017-07-28 23:48 | NUR ---
PT. IN BED WITH HOB UP FOR COMFORT AND LE'S ELEVATED UP ON PILLOW. TOES ARE EXPOSED TO AIR. EYES CLOSED AND RESP. EVEN WITH CALL LIGHT WITHIN REACH.
--- NOTE | 2017-07-29 03:28 | NUR ---
PT. IN BED WITH HOB UP FOR COMFORT AND IS WEARING HER NASAL C-PAP EQUIPMENT WITHOUT ANY ALARMS. EYES CLOSED AND RESP. EVEN. PT. REMAINS ON FIRST STEP MATTRESS. TOES OPEN TO AIR. CALL LIGHT WITHIN REACH.
--- NOTE | 2017-07-29 05:35 | NUR ---
PER ASEPTIC TECHNIQUE 16FR SANCHEZ REMOVED WITH CATH TIP INTACT. PT. TOLERATED PROCEDURE WITHOUT ANY COMPLAINTS.
--- NOTE | 2017-07-29 08:00 | NUR ---
SHIFT ASSMT COMPLETED
[2017-07-29 08:29] VITALS: BP 110/47
--- NOTE | 2017-07-29 16:00 | NUR ---
RESTING QUIETLY.CL IN REACH.
--- NOTE | 2017-07-29 19:35 | NUR ---
PT. IN BED ON FIRST STEP MATTRESS WITH HOB UP FOR COMFORT AND IS WATCHING TV. ASSESSMENT COMPLETED. INSTRUCTED PT. SHE WAS GOING TO HAVE TO TURN ON HER SIDE WITH PILLOW AT BACK FOR SUPPORT TO GIVE HER BACKSIDE A REST AND ALLOW FOR PRESSURE RELIEF TO BUTTOCK. PT. AGREED TO USE OF PILLOW TO BACK SHE CAN'T SLEEP ON HER SIDE. CALL LIGHT WITHIN REACH.
[2017-07-29 21:14] VITALS: BP 139/41
--- NOTE | 2017-07-29 23:08 | NUR ---
PT. IN BED WITH HOB UP FOR COMFORT AND IS STILL WATCHING TV. NO VOICED NEEDS AND HER CALL LIGHT IS WITHIN REACH. PT. REMAINS ON FIRST STEP MATTRESS WITHOUT ANY ALARMS.
--- NOTE | 2017-07-30 03:08 | NUR ---
PT. IN BED WITH HOB UP FOR COMFORT AND IS WEARING HER NASAL C-PAP EQUIPMENT WITHOUT ALARMS. EYES CLOSED AND RESP. EVEN. CALL LIGHT WITHIN REACH.
[2017-07-30 07:06] LABS: BASOPHILS 0.3 % (0-2); EOSINOPHILS 4.2 % (0-7); HEMATOCRIT 27.3 % (36.0-48.0); HEMOGLOBIN 9.2 g/dL (12-16); IMMATURE GRANULOCYTES 2.6 % (0-5); LYMPHOCYTES 14.8 % (15-50); MCHC 33.7 g/dL (31.0-37.0); MCV 91.9 fL (80.0-100.0); MONOCYTES 8.3 % (2-11); NEUTROPHILS 69.8 % (40-80); PLATELET COUNT 352 10x3/uL (130-400); RBC 2.97 10x6/uL (4.00-5.40); RDW 14.4 % (11.5-14.5); WBC 12.2 10x3/uL (4.8-10.8)
[2017-07-30 07:31] LABS: CALCIUM 9.6 mg/dL (8.5-10.1); CARBON DIOXIDE 25.3 mmol/L (21.0-32.0); CREATININE - SERUM 2.2 mg/dL (0.6-1.3)
[2017-07-30 07:32] LABS: ANION GAP 16.7 mmol/L (8-16)
--- NOTE | 2017-07-30 07:38 | NUR ---
RESTING QUIETLY IN BED. CALL LIGHT IN REACH. BED IN LOWEST POSITION.
[2017-07-30 08:02] VITALS: BP 111/51
--- NOTE | 2017-07-30 13:33 | NUR ---
WORKING WITH THERAPY IN GYM
--- NOTE | 2017-07-30 17:22 | NUR ---
SITTING UP IN BED EATING SUPPER. INCONT OF URINE. DENIES KNOWING WHEN SHE NEEDS TO VOID BUT KNOWS SHE HAS BEEN INCONT.
--- NOTE | 2017-07-30 19:52 | NUR ---
RECIEVED UP IN BED WITH EYES OPEN.PLEASANT AND TALKATIVE. DENIES ANY PAIN. CALL LIGHT AND OVERBED TABLE IN REACH.
[2017-07-30 20:50] VITALS: BP 114/57
--- NOTE | 2017-07-30 23:31 | NUR ---
RESTING IN BED WITH CPAP IN PLACE. HOB ELEVATED. REFUSED TO TAKE LASIX EARLIER. STATED "I TAKE IT AT 8&12 AT HOME THATS WHAT MY DOCTOR TOLD ME TO DO'. NOTIFIED MD WITH ORDER TO CHANGE TIMES. TOES CONTINUE TO HAVE CYANOTIC AREA TO THEM. BUTTOCKS RED AND PEELING D/T EXCORIATION. AIR MATTRESS ON BED. CALL LIGHT IN REACH.
--- NOTE | 2017-07-31 02:48 | NUR ---
RESTING IN BED WITH EYES CLOSED. NO S/S OF DISTRESS OBSERVED. CALL LIGHT AND OVERBED TABLE IN REACH.
[2017-07-31 08:07] VITALS: BP 118/54
[2017-07-31 11:58] LABS: ANION GAP 15.1 mmol/L (8-16); CALCIUM 9.6 mg/dL (8.5-10.1); CARBON DIOXIDE 25.6 mmol/L (21.0-32.0); CREATININE - SERUM 2.2 mg/dL (0.6-1.3); POTASSIUM - SERUM 3.7 mmol/L (3.5-5.1)
--- NOTE | 2017-07-31 12:38 | NUR ---
SITTING UP IN BED EATING LUNCH. DENIES NEEDS.
[2017-07-31 19:43] VITALS: BP 119/52
--- NOTE | 2017-07-31 19:43 | NUR ---
RECIEVED UP IN BED WITH EYES OPEN AND TV ON. PLEASANT AND COOPERATIVE. DENIES ANY PAIN.CALL LIGHT AND OVERBED TABLE IN REACH.
--- NOTE | 2017-07-31 21:58 | NUR ---
RESTING IN BED WITH EYES CLOSED. NO S/S OF DISTRESS OBSERVED. INCONTINENT OF BLADDER EARLIER. REQUIRED BRIEF CHANGE ONLY. CPAP IN Place. call light in reach.
--- NOTE | 2017-08-01 00:57 | NUR ---
RESTING IN BED WITH EYES CLOSED. NO S/S OF DISTRESS OBSERVED. CALL LIGHT IN REACH.
--- NOTE | 2017-08-01 03:52 | NUR ---
REQUESTED TO GO TO B/R EARLIER. REQUIRED MINAMAL ASSIT WITH TRANSFER. MOD ASSIST WITH W/C AND ASSISTING BACK IN BED. BRIEF WET AND PERICARE PROVIDED AND BRIEF CHANGED. CPAP PUT BACK ON AND CALL LIGHT IN REACH.
--- NOTE | 2017-08-01 10:01 | NUR ---
RESTING QUIETLY IN BED. AIR MATTRESS OVERLAY IN PLACE. DENIES PAIN OR NEEDS. CALL LIGHT IN REACH
[2017-08-01 12:14] VITALS: BP 131/60
--- NOTE | 2017-08-01 19:43 | NUR ---
RECIEVED UP IN BED ELVIRA EYES OPEN AND TV ON. C/O BEING WET. PERICARE PROVIDED AND BRIEF CHANGED. HOB ELEVATED PER PT PREFERENCE. CALL LIGHT AND OVERBED TABLE IN REACH.
[2017-08-01 19:54] VITALS: BP 127/47
--- NOTE | 2017-08-02 00:55 | NUR ---
RSTING IN BED WITH EYES CLOSED NO S/S OF DISTRESS OBSERVED. CPAP IN PLACE AND FUNCTIONING. CALL LIGHT IN REACH.
--- NOTE | 2017-08-02 01:39 | NUR ---
RESTING IN BED WITH EYES CLOSED. NO S/S OF DISTRESS OBSERVED. CALL LIGHT IN REACH.
--- NOTE | 2017-08-02 03:30 | NUR ---
RESTING IN BED WITH EYES CLOSED AT THIS TIME. CPAP IN PLACE. NO S/S OF DISTRESS OBSERVED. CALL LIGHT AND OVERBEDD TABLE IN REACH.
[2017-08-02 06:13] LABS: BASOPHILS 0.4 % (0-2); EOSINOPHILS 4.8 % (0-7); HEMATOCRIT 26.6 % (36.0-48.0); HEMOGLOBIN 8.8 g/dL (12-16); MCH 30.6 pg (26.0-34.0); MCHC 33.1 g/dL (31.0-37.0); MCV 92.4 fL (80.0-100.0); MEAN PLATELET VOLUME 9.3 fL (7.4-10.4); MONOCYTES 6.4 % (2-11); NEUTROPHILS 70.4 % (40-80); PLATELET COUNT 354 10x3/uL (130-400); RBC 2.88 10x6/uL (4.00-5.40); RDW 14.1 % (11.5-14.5); WBC 12.1 10x3/uL (4.8-10.8)
[2017-08-02 06:35] LABS: CALCIUM 9.5 mg/dL (8.5-10.1); CARBON DIOXIDE 26.5 mmol/L (21.0-32.0); CREATININE - SERUM 2.1 mg/dL (0.6-1.3)
[2017-08-02 06:37] LABS: ANION GAP 14.5 mmol/L (8-16)
[2017-08-02 07:31] VITALS: BP 102/44
--- NOTE | 2017-08-02 10:38 | NUR ---
SITTING UP IN W/C. DENIES INCREASED PAIN.
[2017-08-02 12:04] LABS: ANION GAP 16.1 mmol/L (8-16); CALCIUM 9.4 mg/dL (8.5-10.1); CREATININE - SERUM 2.2 mg/dL (0.6-1.3); POTASSIUM - SERUM 3.1 mmol/L (3.5-5.1)
--- NOTE | 2017-08-02 12:32 | NUR ---
SITTING UP IN BED EATING LUNCH. SHE STATES SHE FEELS STRONGER EACH DAY.
--- NOTE | 2017-08-02 18:38 | NUR ---
RESTING QUIETLY IN BED. CALL LIGHT IN REACH. BED IN LOWEST POSITION
--- NOTE | 2017-08-02 20:30 | NUR ---
RECIEVED UP IN BED WITH EYES OPEN AND TV ON. CALL LIGHT IN REACH. DENEIS ANY PAIN OR NEEDS AT THIS TIME.
[2017-08-02 20:41] VITALS: BP 116/41
[2017-08-02 21:55] LABS: BASOPHILS 0.3 % (0-2); HEMATOCRIT 26.2 % (36.0-48.0); HEMOGLOBIN 8.9 g/dL (12-16); LYMPHOCYTES 18.1 % (15-50); MCH 30.9 pg (26.0-34.0); MEAN PLATELET VOLUME 8.9 fL (7.4-10.4); MONOCYTES 5.3 % (2-11); NEUTROPHILS 70.3 % (40-80); PLATELET COUNT 330 10x3/uL (130-400); RBC 2.88 10x6/uL (4.00-5.40); RDW 13.9 % (11.5-14.5); WBC 13.3 10x3/uL (4.8-10.8)
[2017-08-03 08:01] VITALS: BP 126/57
--- NOTE | 2017-08-03 14:21 | NUR ---
Nutrition Follow Up: Pt stated that her appetite is good but she only eats small amounts at a time. Pt said again that she does not like Glucerna. Pt is eating 58% meal avg on a diabetic diet. +BM 08/02/17. Labs reviewed. Meds noted including Lasix. Rec continue current diet. RD following.
--- NOTE | 2017-08-03 19:30 | NUR ---
PT IN BED WITHH OB UP FOR COMFORT. WATCHING TV. ALERT & OREINTED. FSBS ACHS. CPAP AT NIGHT. 1ST STEP MATTRESS. ELECTROLYTE PROTOCOL. INCONTINENT AT TIMES. NO O2. NO IV. BED IN LOWEST POSITION AND CALL LIGHT WITHIN REACH.
[2017-08-03 21:45] VITALS: BP 129/44
--- NOTE | 2017-08-03 22:46 | NUR ---
HELPED PT PUT ON CPAP MACHINE.
--- NOTE | 2017-08-03 22:55 | NUR ---
RESTING QUIETLY IN BED, EYES CLOSED. CPAP IN PLACE AND OPERATING.
--- NOTE | 2017-08-04 01:58 | NUR ---
PT IN BED WITH HOB UP FOR COMOFRT. RESTING QUIETLY. CPAP ON. BED IN LOWEST POSITION NAD CALL LIGHT WITHIN REACH.
--- NOTE | 2017-08-04 04:24 | NUR ---
PT IN BED WITH HOB UP FOR COMFORT. EYES CLOSED. CHEST RISING AND FALLING. BED IN LOWEST POSITION AND CALL LIGHT WITHIN REACH. CPAP ON.
[2017-08-04 07:07] LABS: BASOPHILS 0.5 % (0-2); EOSINOPHILS 4.2 % (0-7); HEMATOCRIT 25.9 % (36.0-48.0); HEMOGLOBIN 8.7 g/dL (12-16); IMMATURE GRANULOCYTES 1.9 % (0-5); LYMPHOCYTES 15.7 % (15-50); MCH 30.9 pg (26.0-34.0); MCHC 33.6 g/dL (31.0-37.0); MCV 91.8 fL (80.0-100.0); MONOCYTES 6.9 % (2-11); NEUTROPHILS 70.8 % (40-80); PLATELET COUNT 350 10x3/uL (130-400); RBC 2.82 10x6/uL (4.00-5.40); RDW 13.9 % (11.5-14.5); WBC 11.6 10x3/uL (4.8-10.8)
[2017-08-04 07:52] LABS: ANION GAP 14.8 mmol/L (8-16); CALCIUM 9.4 mg/dL (8.5-10.1); CARBON DIOXIDE 25.6 mmol/L (21.0-32.0); CREATININE - SERUM 1.9 mg/dL (0.6-1.3); POTASSIUM - SERUM 3.4 mmol/L (3.5-5.1); THYROID STIMULATING HORMONE 4.91 uIU/mL (0.36-3.74)
--- NOTE | 2017-08-04 08:00 | NUR ---
SHIFT ASSSMT COMPLETED.UP OOB TO WC.BREAKFAST GIVEN.
[2017-08-04 08:27] VITALS: BP 118/55
--- NOTE | 2017-08-04 12:00 | NUR ---
SITTING UP IN CHAIR EATING LUNCH.PARTNER AT BEDSIDE.
--- NOTE | 2017-08-04 15:18 | NUR ---
CARE TEAM MEETING: PATIENT PROGRESSING IN THERAPY. TENATIVE DISCHARGE DATE IS 08/06/17. WILL CONTINUE TO FOLLOW WITH PATIENT.
--- NOTE | 2017-08-04 19:20 | NUR ---
PT IN BED WITH HOB UP FOR COMFORT. WATCHING TV. NO O2. NO IV. FSBS ACHS. CPAP @ NIGHT. 1ST STEP MATTRESS. ELECTROLYTE PROTOCOL. 910 TIPS OF TOES ARE BLACK. BED IN LOWEST POSITION AND CALL LIGHT WITHIN REACH.
[2017-08-04 20:23] VITALS: BP 113/45
--- NOTE | 2017-08-04 21:49 | NUR ---
PT HAD AN INC. EPISODE BRIEF AND BLUE PAD CHANGED. ASSISTED PT WITH PUTTING ON CPAP.
--- NOTE | 2017-08-05 01:50 | NUR ---
IN BED, EYES CLOSED. CPAP MASK IN PLACE. APPEARS COMFORTABLE.
--- NOTE | 2017-08-05 04:09 | NUR ---
PT IN BED WITH HOB UP FOR COMFORT. EYES CLOSED. REPSIRATIONS EVEN AND UNLABORED. BED IN LOWEST POSITION AND CALL LIGHT WITHIN REACH. CPAP ON.
[2017-08-05 08:18] VITALS: BP 135/48
--- NOTE | 2017-08-05 09:48 | NUR ---
LAYING IN BED WATCHING TV. GETS UP BY SELF, USES WALKER AND AMBULATES WITH SUPERVISION TO BATHROOM. DENIES INCREASED PAIN.
--- NOTE | 2017-08-05 12:38 | NUR ---
SITTING UP IN BED EATING LUNCH. DENIES INCREASED PAIN.
--- NOTE | 2017-08-05 17:33 | NUR ---
SITTING UP IN BED AND FINISHING SUPPER. DENIES INCREASED PAIN OR NEEDS.
[2017-08-05 19:00] VITALS: BP 124/40
--- NOTE | 2017-08-05 19:10 | NUR ---
PT IN BED WITH HOB UP FOR COMFORT. WATCHING TV. NO O2. NO IV. FSBS ACHS. CPAP @ NIGHT. 1ST STEP MATTRESS. ELECTROLYTE PROTOCOL. TIPS OF TOES ARE BLACK. BED IN LOWEST POSITION AND CALL LIGHT WITHIN REACH.
--- NOTE | 2017-08-05 19:48 | NUR ---
ASSISTED PT TO BATHROOM AND BACK TO BED.
--- NOTE | 2017-08-05 20:00 | NUR ---
PATIENT AWAKE IN BED, HOB UP 30 DEGREES. NO COMPLAINTS AT THIS TIME.
--- NOTE | 2017-08-05 21:32 | NUR ---
ASSISTED PT WITH CPAP.
--- NOTE | 2017-08-06 01:32 | NUR ---
PT IN BED WITH HOB UP FOR COMFORT. EYES CLOSED. CHEST RISING AND FALLING. BED IN LOWEST POSITION AND CALL LIGHT WITHIN REACH. DAVY ALARM ON.
--- NOTE | 2017-08-06 04:32 | NUR ---
PT IN BED WITH HOB UP FOR COMFORT. EYES CLOSED. CHEST RISING AND FALLING. BED IN LOWEST POSITION AND CALL LIGHT WITHIN REACH. CPAP ON.
[2017-08-06 06:34] LABS: HEMATOCRIT 24.4 % (36.0-48.0); HEMOGLOBIN 8.4 g/dL (12-16); LYMPHOCYTES 15.8 % (15-50); MCH 30.5 pg (26.0-34.0); MCHC 34.4 g/dL (31.0-37.0); MEAN PLATELET VOLUME 8.5 fL (7.4-10.4); NEUTROPHILS 73.6 % (40-80); PLATELET COUNT 346 10x3/uL (130-400); RBC 2.75 10x6/uL (4.00-5.40); RDW 13.2 % (11.5-14.5); WBC 11.4 10x3/uL (4.8-10.8)
[2017-08-06 06:35] LABS: CALCIUM 9.6 mg/dL (8.5-10.1); CARBON DIOXIDE 25.3 mmol/L (21.0-32.0); CREATININE - SERUM 2.3 mg/dL (0.6-1.3); MCV 88.7 fL (80.0-100.0); POTASSIUM - SERUM 3.3 mmol/L (3.5-5.1)
[2017-08-06] MEDS ORDERED: K-DUR20 MEQ PO (08:29)
[2017-08-06 09:02] VITALS: BP 129/57
--- NOTE | 2017-08-06 09:38 | NUR ---
PATIENT DISCHARGING HOME WITH S/O. [facility] WILL PROVIDE THEARPY AT HOME. NO NEW DME NEEDED PER PATIENT. DR. LANCASTER/LETA ELLISON APN 08/11/17 @ 3:00. PATIENT CHOICE FORM FOR HOME HEALTH AND [facility] FORM SIGNED, EXPLAINED AND FILED IN CHART. ORDERS HAVE BEEN FAXED TO [facility].
--- NOTE | 2017-08-06 12:20 | NUR ---
D/C HOME WITH ALL PERSONAL BELONGINGS. MEDS CALLED INTO [facility] ON [address]. REVIEWED MEDS. D/C PLAN AND FOLLOW UP APPTS WITH PT AND FRIEND. SHE DENIES NEEDS OR QUESTIONS.
--- NOTE | 2017-09-22 13:18 | DS ---
PATIENT:FAN PAZ :[birth year] MEDICAL RECORD: [id number] DISCHARGE SUMMARY ADMISSION DATE: 07/22/17 DISCHARGE DATE: 08/06/17 This is a discharge dated 08/06/2017 from the inpatient rehabilitation. 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 SECONDARY DIAGNOSES: 1. Diabetes. 2. Hypertension. 3. Coronary artery disease. 4. Hypothyroidism. 5. Dysphagia. 6. Hyponatremia. 7. Hypokalemia. 8. Gangrene of the toes. 9. Obesity. 10. Obstructive sleep apnea. 11. Chronic hypoxic respiratory failure. 12. Graves' disease. 13. Anemia. 14. Chronic obstructive pulmonary disease. 15. Cataracts. 16. Hiatal hernia. 17. Gastritis. 18. Gastroparesis. 19. Renal insufficiency. CONSULTS THIS HOSPITALIZATION: Dr. Cardona with podiatry. HOSPITAL COURSE: Full H&P is located elsewhere on the chart on this 67-year-old female who was admitted to inpatient rehab for physical therapy and occupational therapy to improve gait, transfer skills, bed mobility, and activities of daily living to a modified independent level. She was evaluated by PT and OT and their plans of care were followed. She required custodial care for observation and assessment and medication administration. She was seen by speech therapy for management of dysphagia. Labs were monitored. Electrolytes were managed by protocol. She continued with supplemental oxygen to keep sats greater than 90%. She remained on appropriate home medications. Fingerstick blood sugars were monitored throughout her hospital stay with appropriate adjustment in medications as needed. She complained of worsening discomfort in her toes, podiatry was consulted. She was seen by Dr. Cardona who just continued local care with plans to follow up as outpatient. She was cooperative with therapies, progressing towards goals. Case management was involved for discharge planning. She was considered stable for discharge on 08/06/2017. DISCHARGE MEDICATIONS: As per discharge medication reconciliation. DISCHARGE DISPOSITION: The patient was discharged home. She will continue her current diet and level of activity. She will have home health for continued PT, OT, and custodial care. She will follow up with primary care and consultants as directed. DISCHARGE SUMMARY REPORT [id number] FAN PAZ At least 30 minutes was spent in this discharge activity. TRANSINT:[id number] Voice Confirmation ID: [id number] DOCUMENT ID: [id number] Dictated By: HELENA BLUE I have interviewed/examined the above patient and agree with these documented findings. JHON ALMONTE MD at 1318 at 0939 CC: [id number] DICTATION DATE: 09/18/17 1153 CORDUROY CUTTER OPERATOR: 09/18/17 1428 DIS IN 08/06/17 [id number] [place] [address]
== END 2017-08-06 13:00 | disposition home health service (06) | DRG 91 ==
LOC: D.REHAB 13:17
PROVIDERS: ADMIT Emergency Medicine
DX: G72.81 Critical illness myopathy (principal); A41.9 Sepsis, unspecified organism; R65.21 Severe sepsis with septic shock; E87.1 Hypo-osmolality and hyponatremia; E03.9 Hypothyroidism, unspecified; E11.9 Type 2 diabetes mellitus without complications; R13.12 Dysphagia, oropharyngeal phase; J44.9 Chronic obstructive pulmonary disease, unspecified; E87.6 Hypokalemia; R53.83 Other fatigue; I11.0 Hypertensive heart disease with heart failure; I50.9 Heart failure, unspecified; I25.10 Atherosclerotic heart disease of native coronary artery without angina pectoris; G47.33 Obstructive sleep apnea (adult) (pediatric); E05.00 Thyrotoxicosis with diffuse goiter without thyrotoxic crisis or storm

== ENCOUNTER 2017-08-08 10:53 | Inpatient (IN) | payer MEDICARE, BC ==
[~2017-08-08] VITALS: Ht 162.6 cm; Wt 90.7 kg
[~2017-08-08 10:53] MED LIST changes: +K-DUR20 MEQ PO
[2017-08-08 11:22] LABS: BASOPHILS 0.3 % (0-2); EOSINOPHILS 1.4 % (0-7); HEMATOCRIT 26.7 % (36.0-48.0); HEMOGLOBIN 9.1 g/dL (12-16); IMMATURE GRANULOCYTES 0.9 % (0-5); LYMPHOCYTES 12.2 % (15-50); MCH 30.6 pg (26.0-34.0); MCHC 34.1 g/dL (31.0-37.0); MCV 89.9 fL (80.0-100.0); MEAN PLATELET VOLUME 8.7 fL (7.4-10.4); MONOCYTES 5.2 % (2-11); PLATELET COUNT 360 10x3/uL (130-400); RBC 2.97 10x6/uL (4.00-5.40); RDW 13.5 % (11.5-14.5); WBC 14.7 10x3/uL (4.8-10.8)
[2017-08-08 11:37] LABS: ALBUMIN 2.9 g/dL (3.4-5.0); ANION GAP 15.5 mmol/L (8-16); BILIRUBIN - TOTAL 0.63 mg/dL (0.2-1.3); CALCIUM 9.7 mg/dL (8.5-10.1); CARBON DIOXIDE 26.5 mmol/L (21.0-32.0)
[2017-08-08 12:06] LABS: APPEARANCE CLEAR (CLEAR); BILIRUBIN NEGATIVE (NEGATIVE); COLOR YELLOW (YELLOW); GLUCOSE NEGATIVE (NEGATIVE); KETONE NEGATIVE (NEGATIVE); NITRITE NEGATIVE (NEGATIVE); PROTEIN TRACE mg/dL (NEGATIVE); SPECIFIC GRAVITY 1.005 (1.005-1.020); UROBILINOGEN NORMAL (NORMAL)
[2017-08-08 12:08] LABS: BACTERIA FEW /hpf (NONE SEEN); EPITHELIAL CELLS 0-5 /hpf (0-5); RED CELLS - URINE 0-5 /hpf (0-5)
[2017-08-08] MEDS ORDERED: PREVACID15 MG PO (15:43)
[2017-08-08] MEDS ORDERED: DESERYL100 MG PO (15:45)
[2017-08-08] MEDS ORDERED: ROBAXIN-750750 MG PO (15:46)
[2017-08-08 16:36] VITALS: BMI 34.4
--- NOTE | 2017-08-08 16:59 | NUR ---
ASSESSMENT COMPLETE AT THIS TIME PT AND FRIEND STATE PT HAS FALLEN 3 TIMES TODAY HAS BECOME WEAKER SINCE DISCHARGE FROM REHAB ON WEDNESDAY. PT HAS NECROTIC TOE TIP TO ALL BUT 5TH DIGIT ON RT FOOT PULSED 2+ TO BILATERAL PEDAL PULSES PT HAS OPEN AREA PRESSURE WOUND TO SACRAL AREA PINK EDGES WITH WHITE WOUND BED NO DRAINAGE OR ODOR OPEN AREA PRESSUE ULCER NOTED TO LT BUTTOCK PINK EDGES WOUND BED WHITE MEASUREMENT NOT DONE AT THIS TIME
--- NOTE | 2017-08-08 19:34 | NUR ---
PT IN BED RESTING. EVEN AND UNLABORED RESPIRATIONS NOTED. WILL CONTINUE TO MONITOR.
[2017-08-08 21:01] VITALS: BP 120/55
[2017-08-09 00:52] VITALS: BP 133/65
[2017-08-09 05:07] LABS: BASOPHILS 0.3 % (0-2); EOSINOPHILS 3.5 % (0-7); HEMATOCRIT 24.3 % (36.0-48.0); HEMOGLOBIN 8.1 g/dL (12-16); IMMATURE GRANULOCYTES 0.9 % (0-5); LYMPHOCYTES 18.6 % (15-50); MCH 30.3 pg (26.0-34.0); MCHC 33.3 g/dL (31.0-37.0); MEAN PLATELET VOLUME 8.8 fL (7.4-10.4); MONOCYTES 6.8 % (2-11); NEUTROPHILS 69.9 % (40-80); PLATELET COUNT 345 10x3/uL (130-400); RBC 2.67 10x6/uL (4.00-5.40); RDW 13.7 % (11.5-14.5); WBC 11.6 10x3/uL (4.8-10.8)
[2017-08-09 05:34] LABS: ANION GAP 10.9 mmol/L (8-16); CARBON DIOXIDE 26.9 mmol/L (21.0-32.0); CREATININE - SERUM 1.9 mg/dL (0.6-1.3)
[2017-08-09 05:36] VITALS: BP 140/88
[2017-08-09 05:38] LABS: POTASSIUM - SERUM 2.8 mmol/L (3.5-5.1)
--- NOTE | 2017-08-09 07:15 | NUR ---
RECIEVED REPORT ON PATIENT, PATIENT IS ALERT AND ORIENTED AT THIS TIME. PATIENT IS SR ON MONITOR WITH A RATE OF 79. PATIENT HAS A L WRIST IV WITH [id number] INFUSING AT 75ML/HR. PATIENT DENIES ANY NEEDS AT THIS TIME. BED IS LOW AND LOCKED. CALL LIGHT IN REACH. WILL CONT TO MONITOR PATIENT. CPOC
[2017-08-09 08:42] VITALS: BP 145/58
--- NOTE | 2017-08-09 09:30 | NUR ---
MORNING MEDICATION GIVEN. NO ISSUES. CONTIUNING TO FOLLOW ELECTROLYTE PROTOCOL FOR POTASSIUM OF 2.8. PATIENT DENIES ANY NEEDS. CPOC
--- NOTE | 2017-08-09 10:45 | NUR ---
PATIENT HAD BM, PATIENT CLEANED UP AND LINENS CHANGED. CPOC
[2017-08-09 10:57] VITALS: Ht 162.6 cm; Wt 90.7 kg
--- NOTE | 2017-08-09 12:30 | NUR ---
PATIENT SITTING UP IN BED, EATING LUNCH. DENIES ANY NEEDS AT THIS TIME. CPOC
[2017-08-09 13:41] VITALS: BP 126/42
--- NOTE | 2017-08-09 14:00 | NUR ---
PATIENT RESTING, DENIES ANY NEEDS. CPOC
--- NOTE | 2017-08-09 15:27 | NUR ---
SCDS PUT ON PATIENT, PATIENT TOLERATING. CPOC
[2017-08-09 17:42] VITALS: BP 109/34
--- NOTE | 2017-08-09 17:45 | NUR ---
PATIENT EATING DINNER. DENIES ANY NEEDS. CPOC
--- NOTE | 2017-08-09 19:09 | NUR ---
PATIENT INFORMED MY SHIFT WAS ALMOST OVER. DENIES ANY NEEDS. CPOC
[2017-08-09 20:53] VITALS: BP 132/47
[2017-08-10 00:37] VITALS: BP 98/45
--- NOTE | 2017-08-10 02:32 | NUR ---
PATIENT IS RESTING WELL IN BED, RESPIRATIONS EVEN AND UNLABORED. CALL LIGHT IN REACH, WILL CONTINUE PLAN OF CARE.
[2017-08-10 04:20] VITALS: BP 129/42
--- NOTE | 2017-08-10 07:06 | NUR ---
RECIEVED REPORT ON PATIENT, PATIENT IS ALERT AND ORIENTED AT THIS TIME. PATIENT IS SR ON MONITOR WITH A RATE OF 84. PATIENT HAS A L WRIST IV WITH [id number] AT 75ML/HR. PATIENT DENIES ANY NEEDS OR PAIN AT THIS TIME. BED IS LOW AND LOCKED. CALL LIGHT IN REACH. CPOC
[2017-08-10 08:00] VITALS: BP 124/51
[2017-08-10 09:14] LABS: BASOPHILS 0.4 % (0-2); EOSINOPHILS 3.5 % (0-7); HEMATOCRIT 25.9 % (36.0-48.0); HEMOGLOBIN 8.6 g/dL (12-16); IMMATURE GRANULOCYTES 0.8 % (0-5); LYMPHOCYTES 19.3 % (15-50); MCH 30.6 pg (26.0-34.0); MCHC 33.2 g/dL (31.0-37.0); MCV 92.2 fL (80.0-100.0); MEAN PLATELET VOLUME 8.8 fL (7.4-10.4); MONOCYTES 7.4 % (2-11); NEUTROPHILS 68.6 % (40-80); PLATELET COUNT 335 10x3/uL (130-400); RBC 2.81 10x6/uL (4.00-5.40); RDW 13.8 % (11.5-14.5); WBC 11.6 10x3/uL (4.8-10.8)
--- NOTE | 2017-08-10 09:15 | NUR ---
MORNING MEDICATIONS GIVEN. NO ISSUES. DENIES ANY NEEDS. CPOC
[2017-08-10 09:34] LABS: ANION GAP 11.3 mmol/L (8-16); CALCIUM 8.7 mg/dL (8.5-10.1); CARBON DIOXIDE 26.4 mmol/L (21.0-32.0); CREATININE - SERUM 1.6 mg/dL (0.6-1.3); POTASSIUM - SERUM 3.7 mmol/L (3.5-5.1)
[2017-08-10 12:00] VITALS: BP 113/31
[2017-08-10] MEDS ORDERED: DETROL LA4 MG PO (12:30)
--- NOTE | 2017-08-10 12:33 | NUR ---
PATIENT SITTING UP IN BED EATING LUNCH, DENIES ANY NEEDS. CPOC
--- NOTE | 2017-08-10 13:59 | NUR ---
ASSISTED WITH LINEN CHANGE AND BED BATH. PAINTED TOES WITH IODINE. DENIES ANY OTHER NEEDS AT THIS TIME. CPOC.
--- NOTE | 2017-08-10 14:13 | NUR ---
Nutrition Consult: Spoke with pt regarding high K+ foods. Encouraged pt to watch portion sizes as most of these foods are CHO. Pt stated she undestood. Written info was provided and pt was encouraged contact RD with any questions. RD following.
[2017-08-10 16:00] VITALS: BP 113/43
--- NOTE | 2017-08-10 16:29 | NUR ---
PATIENT FSBS 103. NO INSULIN REQUIRED. CPOC
--- NOTE | 2017-08-10 17:53 | NUR ---
PATIENT EATING DINNER. DENIES ANY NEEDS AT THIS TIME. CPOC
--- NOTE | 2017-08-10 18:26 | NUR ---
ROUNDS MADE, INFORMED PATIENT MY SHIFT WAS ABOUT TO BE ENDING, DENIES ANY NEEDS. PATIENT RESTING. CPOC
--- NOTE | 2017-08-10 18:45 | NUR ---
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 Yes 0 * How many steps to enter\exit or inside your home? RAMP 0 * PCP DR. LANCASTER 0 * Pharmacy [facility] [address] 0 * Preadmission Environment Home with Family 0 * ADLs Partial Dependent 0 * Partial ADLs (Assistance needed) Bathing Medication Management 0 * Equipment CPAP Oxygen Rolling Walker Shower Chair Walker 0 * Other Equipment UNKNOWN MEDICAL EQUIPMENT PROVIDER 0 * List name and contact numbers for known caregivers / representatives who currently or will assist patient after discharge: HAKEEM EDWARDS, PARTNER, 0 * Community resources currently utilized Home Health 0 * Please name any agencies selected above. [facility] 0 * Additional services required to return to the preadmission environment? Yes * Can the patient safely return to the preadmission environment? No 0 * Has this patient been hospitalized within the prior 30 days at any hospital? Yes 0 CM MET WITH PT IN ROOM TO DISCUSS DISCHARGE PLANNING AND NEEDS. PT REPORTS LIVING AT HOME PARTIALLY DEPENDENT ON HER PARTNER FOR MEDICATION MANAGEMENT AND BATHING. PT REPORTS THREE FALLS AT HOME AFTER GETTING HOME FROM INPATIENT REHAB. PT REPORTS HAVING ALL NEEDED MEDICAL EQUIPMENT AT HOME, CANNOT REMEMBER THE NAME OF HER PROVIDER. PT HAS HOME HEALTH WITH [facility]. CM DISCUSSED AVAILABILITY OF HOME HEALTH, REHAB SERVICES AND MEDICAL EQUIPMENT. PT REPORTS SHE NEEDS NURSING REHAB AND WANTS TO GO TO [place] A FRIEND WAS THERE AND RECEIVED EXCELLENT CARE. CHOICE SIGNED. PT REPORTS HER PARTNER WILL PICK HER UP FOR DISCHARGE HOME. IMPORTANT MESSAGE FROM MEDICARE PROVIDED AND EXPLAINED. CM FAXED REFERRAL TO [facility], , WILL FOLLOW UP WITH PHONE CALL TOMORROW TO CHECK RECEIPT AND PROGRESS OF REHAB SCREENING. CM WAITING ADMISSION DETERMINATION FROM [facility]. Seat Joiner Chainstitch: Kalyan Goldsmith
[2017-08-10 20:00] VITALS: BP 117/43
--- NOTE | 2017-08-11 03:54 | NUR ---
PT RESTING WELL IN BED, RESPIRATIONS EVEN AND UNLABORED. CALL LIGHT IN REACH, WILL CONTINUE PLAN OF CARE.
[2017-08-11 04:00] VITALS: BP 121/46
--- NOTE | 2017-08-11 05:05 | NUR ---
URINE SAMPLE COLLECTED AND SENT TO THE LAB
--- NOTE | 2017-08-11 05:23 | NUR ---
PT RESTING COMFORTABLY, NO NEEDS. CONTINUE TO MONITOR CLOSELY.
[2017-08-11 05:36] LABS: BASOPHILS 0.2 % (0-2); EOSINOPHILS 3.7 % (0-7); HEMOGLOBIN 8.3 g/dL (12-16); IMMATURE GRANULOCYTES 1.2 % (0-5); LYMPHOCYTES 18.6 % (15-50); MCH 30.6 pg (26.0-34.0); MCHC 33.2 g/dL (31.0-37.0); MCV 92.3 fL (80.0-100.0); MONOCYTES 7.4 % (2-11); NEUTROPHILS 68.9 % (40-80); PLATELET COUNT 302 10x3/uL (130-400); RBC 2.71 10x6/uL (4.00-5.40); RDW 13.9 % (11.5-14.5); WBC 12.1 10x3/uL (4.8-10.8)
[2017-08-11 06:02] LABS: ANION GAP 13.5 mmol/L (8-16); CALCIUM 8.6 mg/dL (8.5-10.1); CARBON DIOXIDE 24.7 mmol/L (21.0-32.0); CREATININE - SERUM 1.6 mg/dL (0.6-1.3); POTASSIUM - SERUM 3.2 mmol/L (3.5-5.1)
[2017-08-11 06:44] LABS: APPEARANCE CLEAR (CLEAR); BILIRUBIN NEGATIVE (NEGATIVE); COLOR YELLOW (YELLOW); GLUCOSE NEGATIVE (NEGATIVE); KETONE NEGATIVE (NEGATIVE); NITRITE NEGATIVE (NEGATIVE); PROTEIN TRACE mg/dL (NEGATIVE); SPECIFIC GRAVITY 1.005 (1.005-1.020); UROBILINOGEN NORMAL (NORMAL)
[2017-08-11 06:47] LABS: BACTERIA MODERATE /hpf (NONE SEEN); HYALINE CAST OCC /lpf (NONE SEEN); MUCUS <1+ /lpf (NONE SEEN); RED CELLS - URINE 0-5 /hpf (0-5)
--- NOTE | 2017-08-11 08:04 | NUR ---
AM ROUNDS - PT IS IN BED AND AWAKE AT THIS TIME. MONITOR SHOWING SR, HR 87. IV TO LEFT WRIST, NS WITH 40K+. BED AT LOWEST POSITION. CALL CERON IN USE/REACH. SIDE RAILS UP X2. NO NEEDS AT THIS TIME. WILL CONTINUE TO MONITOR
[2017-08-11 10:31] VITALS: BP 120/43
[2017-08-11 13:23] VITALS: BP 107/47
--- NOTE | 2017-08-11 14:44 | NUR ---
Patient Name: FAN PAZ Encounter No: [id number] : 1950 Primary Insurance: MEDICARE A & B Anticipated DC Date: 08-11-2017 Planned Disposition: Jail Facility External Planned Provider: [facility], MEDICARE REHAB BED DCP follow-up note: CM RECEIVED CALL FROM HAYLEE OF [facility], THEY WILL ACCEPT PT FOR REHAB AT DISCHARGE. JOSE CARDENAS NOTIFIED. PT NOTIFIED. FOR DISCHARGE, FAX DISCHARGE INFORMATION TO [facility], , CALL NURSE REPORT TO [facility] AT [phone]. [facility] TO ARRANGE VAN TRANSPORTATION. Kalyan Goldsmith, CASE MANAGEMENT
[2017-08-11] MEDS ORDERED: LEVAQUIN500 MG PO (15:14)
--- NOTE | 2017-08-11 16:45 | NUR ---
Patient Name: FAN PAZ Encounter No: [id number] : 1950 Primary Insurance: MEDICARE A & B Anticipated DC Date: 08-11-2017 Planned Disposition: Assisted Facility External Planned Provider: [facility], MEDICARE REHAB BED DCP follow-up note: CM RECEIVED CALL FROM [facility], THEY WILL ACCEPT PT FOR REHAB AT DISCHARGE. JOSE CARDENAS NOTIFIED. PT NOTIFIED. FOR DISCHARGE, FAX DISCHARGE INFORMATION TO [facility], , CALL NURSE REPORT TO [facility] AT [phone]. [facility] TO ARRANGE VAN TRANSPORTATION. Kalyan Aragon, CASE MANAGEMENT Appended by Kalyan Aragon on 08/11/2017 16:45 HANDS PARTER: CM RECEIVED DISCHARGE ORDER, SPOKE TO [facility] AT ABOUT 3PM, THEY WILL SEND VAN AT ABOUT 4PM. CM NOTIFIED SALES AND MANAGEMENT TRAINEE NURSE; CM SPOKE TO BEDSIDE NURSE WHO REPORTS PT IS NOT HAPPY WITH BEING DISCHARGED, DOES NOT WANT TO LEAVE. CM SPOKE TO PT IN ROOM, PT REPORTS THE DOCTOR DID NOT TELL HER THAT SHE WAS DISCHARGING TODAY. CM EXPLAINED THAT PT IS MEDICALLY STABLE FOR REHAB, APOLOGIZED FOR ANY MISCOMMUNICATION AND INFORMED PT THAT THE DOCTOR DID INDEED DISCHARGE HER TO REHAB. PT REPORTS NOT HAVING CLOTHES TO WEAR THERE. BEDSIDE NURSE OFFERED HOSPITAL SCRUBS FOR PT TO WEAR. PT STATES SHE WANTS TO SEE THE DOCTOR OR NURSE PRACTITIONER. CM PROVIDED AND DISCUSSED THE IMPORTANT MESSAGE FROM MEDICARE REGARDING DISCHARGE APPEAL RIGHTS, PT REPORTED UNDERSTANDING. CM PAGED JOSE CARDENAS WHO CALLED UNIT, SPOKE TO FLOW COODINATOR, ADVISED THAT SHE AND THE DOCTOR WERE IN THE ROOM WITH PT EARLIER AND DID NOT INFORM HER OF DISCHARGE DUE TO NOT KNOWING OF ACCEPTANCE AT [facility] FOR REHAB AT THE TIME OF DR. MENDES. BOTH JOSE CARDENAS AND THE DOCTOR ARE OUT OF THE BUILDING. BEDSIDE NURSE AND CM SPOKE TO PT IN ROOM EXPLAINED ABOVE. PT REPORTS SHE WILL LEAVE BUT WANTS HER PARTNER HERE BEFORE SHE GOES; PT REPORTS HER PARTNER IS NOT ABLE TO PROVIDE TRANSPORTATION AND PT DOES WANT [facility] TRANSPORT TO REHAB TODAY. CM INFORMED [facility] TRANSPORTER OF PT'S REQUEST AND PT INFORMED CM THAT IT WOULD BE AT LEAST 20 MINUTES. CM NOTIFIED HAYLEE AT [facility]. CM FAXED DISCHARGE INFORMATION TO [facility] AT [phone]. NURSE REPORT TO BE CALLED TO [facility], ; [facility] TO ARRANGE VAN TRANSPORT. KALYAN ARAGON, CASE MANAGEMENT
--- NOTE | 2017-08-11 17:06 | NUR ---
D/C - VERBAL AND WRITTEN D/C INSTRUCTIONS GIVEN TO PT AND PARTNER. IV TO RIGHT FA D/C, CATH TIP INTACT, 2X2 DRESSING INTACT AND SECURED WITH TAPE. PT CLEANED AND PUT INTO A CLEAN PULL UP. HEART MONITOR REMOVED AND RETURNED TO RETAIL PLANNER. PT LEFT FLOOR VIA WHEELCHAIR WITH [facility]SPORT. CALLED REPORT TO BRYANT AT [facility]. WILL D/C
--- NOTE | 2017-09-17 12:26 | DS ---
PATIENT:FAN PAZ :[birth year] MEDICAL RECORD: [id number] DISCHARGE SUMMARY ADMISSION DATE: 08/08/17 DISCHARGE DATE: 08/11/17 DATE OF ADMISSION: 08/08/2017 DATE OF DISCHARGE: 08/11/2017 DISCHARGE DIAGNOSES: 1. Generalized weakness. 2. Hypokalemia. 3. Chronic kidney disease. 4. Leukocytosis. 5. Gangrenous toe. 6. Diabetes mellitus. 7. Urinary tract infection. IMAGING STUDIES: 1. CT of the head, which showed no acute findings. 2. CT of the lumbar spine, which showed no acute findings. HOSPITAL COURSE: This is a 67-year-old patient of Dr. Xiao, admitted to the Emergency Department with falls and generalized weakness. The patient recently had a prolonged hospitalization and had been discharged from the rehabilitation two days prior to this readmission. So the story goes that the patient had fallen out of bed 3 times during the night of admission and had to have the paper cleaner come and help the caregiver get the patient back in bed. For these reasons, she was admitted to the inpatient setting. Says she underwent an electrolyte correction for some hypokalemia. Her imaging studies are as above. She was noted to have UTI with Gram-negative rods. She was started on Levaquin. Podiatry did see the patient for ulceration on her foot. She is to follow up with podiatry in a month, but no new medical recommendations other than pain in the toes, with Betadine we will order from podiatry. Her clinical condition improved. She was thought to be stable for [facility] for PT, OT and treatment of her foot wound. See med rec. TRANSINT:[id number] Voice Confirmation ID: [id number] DOCUMENT ID: [id number] Dictated By: FÉLIX AUGUSTINE I have interviewed/examined the above patient and agree with these documented findings. SHAJI GAINES MD at 1226 at 1433 CC: [id number] DICTATION DATE: 09/08/17 1702 OYSTER PREPARER: 09/09/17 0952 DIS IN 08/11/17 [id number] [place] [address]
== END 2017-08-11 18:11 | DRG 300 ==
LOC: D.ER 10:53 → D.M2 14:32
PROVIDERS: Emergency Medicine; Family Medicine; ADMIT Family Medicine
DX: E11.52 Type 2 diabetes mellitus with diabetic peripheral angiopathy with gangrene (principal); I96 Gangrene, not elsewhere classified; I13.0 Hypertensive heart and chronic kidney disease with heart failure and stage 1 through stage 4 chronic kidney disease, or unspecified chronic kidney disease; G72.81 Critical illness myopathy; N39.0 Urinary tract infection, site not specified; E11.65 Type 2 diabetes mellitus with hyperglycemia; Z79.4 Long term (current) use of insulin; J44.9 Chronic obstructive pulmonary disease, unspecified; E11.43 Type 2 diabetes mellitus with diabetic autonomic (poly)neuropathy; K31.84 Gastroparesis; I50.9 Heart failure, unspecified; N18.9 Chronic kidney disease, unspecified; E11.22 Type 2 diabetes mellitus with diabetic chronic kidney disease; E03.9 Hypothyroidism, unspecified; E87.6 Hypokalemia; H26.9 Unspecified cataract; I25.10 Atherosclerotic heart disease of native coronary artery without angina pectoris; G47.33 Obstructive sleep apnea (adult) (pediatric); Z87.891 Personal history of nicotine dependence

== ENCOUNTER 2017-11-15 09:02 | Day surgery (SDC) | payer MEDICARE, BC ==
[~2017-11-15] VITALS: Ht 162.6 cm; Wt 112.3 kg
--- NOTE | ~2017-11-15 | OP ---
PATIENT NAME: FAN PAZ MEDICAL RECORD: [id number] :50 [facility] AD[facility]ION DATE: SURGEON: JORDI ORELALNA DO DATE OF OPERATION: 11/15/2017 PROCEDURE: Colonoscopy with polypectomy. INDICATIONS FOR PROCEDURE: History of colon polyps and chronic constipation. SCOPE: Taecanet video pediatric colonoscope. MEDICATIONS: Propofol 650 mg IV per anesthesia. WITHDRAWAL TIME: Greater than 15 minutes. ESTIMATED BLOOD LOSS: Minimal. COMPLICATIONS: None. FINDINGS: Informed consent was given. The patient was made comfortable with the above medication. After reaching an adequate level of sedation by slow IV push, the patient was placed on her left side. A digital rectal examination was performed and was normal. The endoscope was then advanced under direct visualization through the rectum to the cecum with visualization of the appendiceal orifice and ileocecal valve. To reach the cecum, multiple maneuvers were made for assistance with passage of the scope. This included counter pressure of multiple positions in the abdomen as well as positioning on the back temporarily. Scope was slowly withdrawn and the mucosa was carefully examined. The prep quality was good. There were 7 polyps visualized on today's examination. They were all benign appearing and sessile. In the ascending colon, there was a single polyp, which measured approximately 4 mm in diameter, which was removed using hot forceps in 1 piece and completely retrieved. In the transverse colon, there were a total of 4 separate polyps. They ranged in size from 3 mm to 9 mm in diameter. Two were removed using a hot snare in 1 piece and completely retrieved and the other 2 were removed using hot forceps. In the descending colon, there were two separate polyps, which ranged in size from 5-6 mm in diameter. They were both removed using hot snare in 1 piece and completely retrieved. There was evidence of mild diverticulosis involving the descending and sigmoid colon. Retroflexion was performed in the rectum with a normal appearing rectal wall. The endoscope was withdrawn from the patient. The patient tolerated the procedure well and there were no complications. IMPRESSION: 1. Multiple polyps as described above removed using a combination of hot snare and hot forceps. 2. Mild diverticulosis of the left side of the colon. PLAN AND RECOMMENDATIONS: 1. Discharge home when recovery parameters are met. 2. Continue high fiber diet. 3. Continue current medications. 4. Follow up on biopsy results. 5. Recall colonoscopy in 3 years. TRANSINT:[id number] Voice Confirmation ID: [id number] DOCUMENT ID: [id number] OPERATIVE REPORT [id number] FAN PAZ,JORDI Desai DO at 1119 CC: [id number] DICTATION DATE: 11/15/17 1327 GOAT HERDER: 11/15/17 1340 [facility] 11/15/17 [place] [id number]
[~2017-11-15 09:02] MED LIST changes: +LEVAQUIN500 MG PO; +PREVACID15 MG PO; +ROBAXIN-750750 MG PO
[2017-11-15 09:38] LABS: HEMATOCRIT 33.5 % (36.0-48.0); HEMOGLOBIN 11.4 g/dL (12-16); MCH 30.1 pg (26.0-34.0); MCV 88.4 fL (80.0-100.0); MEAN PLATELET VOLUME 10.2 fL (7.4-10.4); RBC 3.79 10x6/uL (4.00-5.40); RDW 12.4 % (11.5-14.5); WBC 14.8 10x3/uL (4.8-10.8)
[2017-11-15] MEDS ORDERED: ALDACTONE50 MG PO (09:42)
[2017-11-15] MEDS ORDERED: VESICARE10 MG PO (09:42)
[2017-11-15] MEDS ORDERED: OXYBUTYNIN CHLOR5 MG PO (09:43)
[2017-11-15 09:46] VITALS: BP 139/56; Ht 162.6 cm; Wt 112.3 kg
[2017-11-15 09:48] LABS: ANION GAP 19.6 mmol/L (8-16); CALCIUM 9.5 mg/dL (8.5-10.1); CARBON DIOXIDE 28.6 mmol/L (21.0-32.0); CREATININE - SERUM 2.4 mg/dL (0.6-1.3); POTASSIUM - SERUM 3.2 mmol/L (3.5-5.1)
== END 2017-11-15 15:45 | disposition home or self-care (01) ==
LOC: D.OPS 09:02
PROVIDERS: Anesthesiology
DX: D12.4 Benign neoplasm of descending colon (principal); D12.3 Benign neoplasm of transverse colon; I25.10 Atherosclerotic heart disease of native coronary artery without angina pectoris; I10 Essential (primary) hypertension; I50.9 Heart failure, unspecified; E11.9 Type 2 diabetes mellitus without complications; E03.9 Hypothyroidism, unspecified; K21.9 Gastro-esophageal reflux disease without esophagitis; J44.9 Chronic obstructive pulmonary disease, unspecified; G47.30 Sleep apnea, unspecified; K76.0 Fatty (change of) liver, not elsewhere classified; K57.30 Diverticulosis of large intestine without perforation or abscess without bleeding; Z01.812 Encounter for preprocedural laboratory examination

== ENCOUNTER → 2018-02-11 15:35 | Outpatient (CLI) | payer MEDICARE, BC ==
[2017-11-15 09:46] VITALS: BMI 42.5
[~2018-02-11 15:35] MED LIST changes: +ALDACTONE50 MG PO; +OXYBUTYNIN CHLOR5 MG PO; +VESICARE10 MG PO
== END | disposition home or self-care (01) ==
LOC: D.MRI 15:35
DX: M48.061 Spinal stenosis, lumbar region without neurogenic claudication (principal)

== ENCOUNTER 2018-05-23 05:55 | Day surgery (SDC) | payer MEDICARE, BC ==
[~2018-05-23] VITALS: Ht 162.6 cm; Wt 122.7 kg
--- NOTE | ~2018-05-23 | OP ---
PATIENT NAME: FAN PAZ MEDICAL RECORD: [id number] :50 LOCATION:[facility] ADMISSION DATE: SURGEON: JORDI ORELLANA DO DATE OF OPERATION: 05/23/2018 PROCEDURE: Colonoscopy with polypectomy. INDICATIONS FOR PROCEDURE: History of colon polyps. This is a 6-month recall for descending colon tubular adenoma, which was removed 6 months ago and had high-grade dysplastic changes. SCOPE: Olympus video pediatric colonoscope. MEDICATIONS: Propofol 750 mg IV per anesthesia. ESTIMATED BLOOD LOSS: Minimal. COMPLICATIONS: None. WITHDRAWAL TIME: 32 minutes. FINDINGS: Informed consent was given. The patient was made comfortable with the above medication. After reaching an adequate level of sedation by slow IV push, the patient was placed on her left side. A digital rectal examination was performed and was normal other than a skin tag from a previous hemorrhoid. The endoscope was then advanced under direct visualization through the rectum to the cecum, confirmed by the presence of the appendiceal orifice and ileocecal valve. The endoscope was slowly withdrawn. Mucosa was carefully examined. The prep quality was fair. There were multiple polyps visualized on today's examination. There was 1 polyp in the ascending colon, which was benign appearing and sessile. It was removed using hot forceps in 1 piece and completely retrieved. In the transverse colon, three benign-appearing sessile polyps, which ranged in size from 3 to 5 mm in diameter were removed using hot forceps and completely retrieved. In the descending colon, there was a single benign-appearing sessile polyp, which measured approximately 6 mm in diameter. It was removed using hot snare in 1 piece and completely retrieved. In the sigmoid colon, there were 3 polyps, which were benign appearing and sessile and ranged in size from 2 to 5 mm in diameter. They were removed using hot forceps in 1 piece and completely retrieved. Also, on this examination, there were diverticula visualized without evidence of diverticulitis. Retroflexion was performed in the rectum with visualization of grade I internal hemorrhoids without bleeding. The endoscope was withdrawn from the patient. The patient tolerated the procedure well and there were no complications. IMPRESSION: 1. Multiple polyps as described above, removed using a combination of hot snare and hot forceps. 2. Diverticulosis without diverticulitis. 3. Grade I internal hemorrhoids without bleeding. PLAN AND RECOMMENDATIONS: 1. Discharge home when recovery parameters are met. 2. Follow up biopsy specimen results. OPERATIVE REPORT [id number] FAN PAZ 3. High-fiber diet. 4. Continue current medications. 5. Recall colonoscopy in 1-2 years based on a strong personal history of polyps. TRANSINT:[id number] Voice Confirmation ID: [id number] DOCUMENT ID: [id number] JORDI ORELLANA DO CC: [id number] DICTATION DATE: 05/23/18919 MEDICAL ADVISOR: 05/23/18 0950 [address] [place] [id number]
[2018-05-23 06:17] LABS: HEMATOCRIT 33.7 % (36.0-48.0); HEMOGLOBIN 11.7 g/dL (12-16); MCH 29.3 pg (26.0-34.0); MCHC 34.7 g/dL (31.0-37.0); MCV 84.5 fL (80.0-100.0); MEAN PLATELET VOLUME 9.3 fL (7.4-10.4); RBC 3.99 10x6/uL (4.00-5.40); RDW 12.6 % (11.5-14.5); WBC 14.1 10x3/uL (4.8-10.8)
[2018-05-23 06:38] LABS: CALCIUM 9.3 mg/dL (8.5-10.1); CARBON DIOXIDE 26.4 mmol/L (21.0-32.0); CREATININE - SERUM 1.8 mg/dL (0.6-1.3); POTASSIUM - SERUM 3.4 mmol/L (3.5-5.1)
[2018-05-23 07:02] VITALS: BP 128/43; Ht 162.6 cm; Wt 122.7 kg
== END 2018-05-23 10:38 | disposition home or self-care (01) ==
LOC: D.OPS 05:55
PROVIDERS: Anesthesiology
DX: D12.2 Benign neoplasm of ascending colon (principal); D12.5 Benign neoplasm of sigmoid colon; K63.5 Polyp of colon; K57.30 Diverticulosis of large intestine without perforation or abscess without bleeding; K64.0 First degree hemorrhoids; Z86.010 Personal history of colon polyps; Z01.812 Encounter for preprocedural laboratory examination

== ENCOUNTER → 2018-10-04 09:40 | Outpatient (CLI) | payer MEDICARE, BC ==
[2018-05-23 07:02] VITALS: BMI 46.4
== END | disposition home or self-care (01) ==
LOC: D.RAD 03-21 13:00 → D.RT 03-21 13:00 → D.RAD 03-21 14:00 → D.RT 09:40
DX: J44.9 Chronic obstructive pulmonary disease, unspecified (principal)

== ENCOUNTER → 2018-11-23 12:44 | Outpatient (CLI) | payer MEDICARE, BC ==
[2018-05-23 07:02] VITALS: BMI 46.4
== END | disposition home or self-care (01) ==
LOC: D.RAD 12:44
PROVIDERS: ATTEND Internal Medicine Pulmonary Disease
DX: T17.928D Food in respiratory tract, part unspecified causing other injury, subsequent encounter (principal)

== ENCOUNTER → 2019-01-10 09:07 | Outpatient (CLI) | payer MEDICARE, BC ==
[2018-05-23 07:02] VITALS: BMI 46.4
--- NOTE | ~2019-01-10 | EC ---
PATIENT:FAN PAZ DATE OF SERVICE: 01/10/19 SEX: F MEDICAL RECORD: [id number] DATE OF : [birth year] LOCATION:[facility] AGE OF PATIENT: 68 ADMISSION DATE: 01/10/19 REFERRING PHYSICIAN: INTERPRETING PHYSICIAN: EMILY VIDAL MD ECHOCARDIOGRAM REPORT ECHO CHARGES Date: CLINICAL DIAGNOSIS: ECHOCARDIOGRAPHIC MEASUREMENTS (adult normal given) AC root (d.<3.7cm) cm LV Septum d (<1.2 cm> cm Valve Excursion cm LV Septum (systole) cm Left Atria (s.<4.0cm> cm LVPW d(<1.2cm) cm RV (d.<2.3cm) cm LVPW (sytole) cm LV diastole(<5.6CM) cm MV E-F(>70mm/sec) cm LV systole cm LVOT Diameter cm MV exc.(>10mm) cm Est.ejection fraction (50-75%) % DOPPLER: LVIT cm/sec A cm/sec E cm/sec LA cm/sec RVSP mmHg LVOT cm/sec AOP1/2T m/s Asc. Ao cm/sec RVOT cm/sec RA cm/sec PA cm/sec AV Gradient Peak mmHg AV Mean mmHg AV Area cm MV Gradient Peak mmHg MV Mean mmHg MV Area cm COMMENTS: Belt Builder: Manufacturing Engineer Automotive: STEPHANIE# Pericardial Effusion DATE OF SERVICE: 01/10/2019 Adequate 2-D echo, color-flow and spectral Doppler, and M-mode. No LVH. LV internal dimensions are normal. Wall motion is normal. EF is 55%. Aortic valve sclerosis without stenosis by Doppler interrogation. Left atrium is normal at 4.0 cm. Mitral valve shows no prolapse. Mild MR. Right-sided chambers are normal. Trace TR. TRANSINT:[id number] Voice Confirmation ID: [id number] DOCUMENT ID: [id number] ECHOCARDIOGRAM REPORT [id number] FAN PAZ EMILY VIDAL MD CC: [id number] DICTATION DATE: 01/10/19 154 PATIENT SERVICE REP: 01/10/19 1734 [facility] [address] [place] [address]
== END | disposition home or self-care (01) ==
LOC: D.HCCARDIO 09:00
PROVIDERS: ATTEND Internal Medicine Interventional Cardiology
DX: I25.10 Atherosclerotic heart disease of native coronary artery without angina pectoris (principal)

== ENCOUNTER → 2019-02-10 12:28 | Outpatient (CLI) | payer MEDICARE, BC ==
[2018-05-23 07:02] VITALS: BMI 46.4
== END | disposition home or self-care (01) ==
LOC: D.RAD 12:28
PROVIDERS: ATTEND Internal Medicine Pulmonary Disease
DX: T17.928D Food in respiratory tract, part unspecified causing other injury, subsequent encounter (principal); X58.XXXD Exposure to other specified factors, subsequent encounter

== ENCOUNTER 2019-07-27 11:33 | Outpatient (CLI) | payer MEDICARE, BC ==
[~2019-07-27] VITALS: Ht 162.6 cm; Wt 148.6 kg
--- NOTE | ~2019-07-27 | HEMODYNAMI ---
PATIENT:FAN PAZ MEDICAL RECORD: [id number] : 50 LOCATION:[facility] ADMISSION DATE: 07/27/19 Generatedon:07/27/201913:59 Patient name: FAN PAZ Patient #: [id number] SSN: [id number] : 1950 Date of study: 07/27/2019 Page: Of Hemodynamic Procedure Report Patient Data Patient Demographics Procedure consent was obtained First Name: FAN Gender: Female Last Name: JACKSON : 1950 [facility] Initial: GABRIEL Marcum Age: 69 year(s) Patient #: [id number] Race: Unknown SSN: [id number] Additional ID: [id number] Contact details Address: [address] [place] [address] State: [place] City: [place] Zip code: [address] Past Medical History Allergies Allergen Reaction Date Comments Reported Other allergy 07/27/2019 Ceftin, Macrodantin, percocet, sulfa Admission Admission Data Admission Date: 07/27/2019 Admission Time: 11:33 Arrival Date: 07/27/2019 Arrival Time: 0:00 Admit Source: Other Insurance Payor: Medicare, Private health insurance Height (in.): 63.78 BSA: 2.4 (m2) Height (cm.): 162 BMI: 56.39 (kg/m2) Weight (lbs.): 326.29 Weight (kg.): 148 Lab Results Lab Result Date: 07/27/2019 Lab Result Time: 0:00 Biochemistry Name Units Result Min Max BUN mg/dl 31 --(----)-* 7 18 Creatinine mg/dl 2 --(----)-* 0.6 1.3 CBC Name Units Result Min Max Hemoglobin g/dl 12.7 -*(----)-- 13.5 17.5 Procedure Procedure Types Cath Procedure Diagnostic Procedure LHC LHC w/Coronaries Sedation Charges Moderate Sedation up to 15 minutes Procedure Description Procedure Date Procedure Date: 07/27/2019 Procedure Start Time: 13:41 Procedure End Time: 13:56 Procedure Staff Name Function Gian Berry MD Performing Physician Talia Mena RT Monitor Nora Botello RN Nurse Katie Duggan RT Scrub Indication Angina Procedure Data Cath Procedure Fluoroscopy Diagnostic fluoroscopy Total fluoroscopy Time: 2.9 time: 2.9 min min Diagnostic fluoroscopy Total fluoroscopy dose: 767 dose: 767 mGy mGy Contrast Material Contrast Material Type Amount (ml) Isovue 300 70 Entry Location Entry Primary Successful Side Size Upsize Upsize Entry Closure Succes sful Closure Location (Fr) 1 (Fr) 2 (Fr) Remarks Device Remarks Femoral Right 5 Fr Exoseal artery Estimated blood loss: 10 ml Diagnostic catheters Device Type Used For End Catheter Placement MULTIPACK JL 4.0 5Fr Procedure catheter MULTIPACK 3DRC 5Fr Procedure catheter MULTIPACK Pigtail 5 Fr Procedure catheter Procedure Complications No complications Procedure Medications Medication Administration Route Dosage 0.9% NaCl I.V. 100 ml/hr Oxygen etCO2 Nasal cannula 2 l/min Lidocaine 2% added to field 20 Heparin Flush Bag added to field 2 bags (1000units/500ml NS) Versed I.V. 2 mg Fentanyl I.V. 50 mcg Versed I.V. 2 mg Fentanyl I.V. 50 mcg Hemodynamics Rest BSA: 2.4 (m2) HGB: 12.7 (g/dl) O2 Consumption: Estimated: 222 (ml/min) O2 Consum ption indexed: Estimated:92.5 (ml/min/m) Heart Rate: 70 (bpm) Pressure Samples Time Site Value (mmHg) Purpose Heart Use Rate(bpm) 13:51 LV 146/22,28 Snapshot 76 Gradients Valve Time Site Site Mean SEP/DFP Peak To Heart Use 1 2 (mmHg) (sec/min) Peak Rate (mmHg) (bpm) Aortic 13:52 LV AO 75 Snapshots Pre Cath Intra NCS Post Cath Vital Signs Time Heart Resp SPO2 etCO2 NIBP Rhythm Pain Sedation Rate (ipm) (%) (mmHg) (mmHg) Status Level (bpm) 13:21:05 69 17 95 29.2 112/54(95) NSR 0 (11) 10(A) , No pain 13:25:33 67 17 96 36 107/62(83) NSR 0 (11) 10(A) , No pain 13:29:59 67 14 97 18 114/63(95) NSR 0 (11) 10(A) , No pain 13:34:31 67 15 97 11.2 112/56(90) NSR 0 (11) 10(A) , No pain 13:39:02 67 17 95 13.4 108/57(86) NSR 0 (11) 10(A) , No pain 13:43:28 69 14 98 18.7 114/64(89) NSR 0 (11) 10(A) , No pain 13:47:56 75 23 98 26.9 124/66(85) NSR 0 (11) 10(A) , No pain 13:52:31 74 37 99 15.7 122/64(93) NSR 0 (11) 10(A) , No pain 13:57:05 69 29 100 36 119/60(98) NSR 0 (11) 10(A) , No pain Medications Time Medication Route Dose Verified Delivered Reason Notes Eff ectiveness by by 13:32:48 0.9% NaCl I.V. 100 Gian Nora used for ml/hr Jamal Ayan procedure MD [facility] 13:32:54 Oxygen etCO2 2 Gian Nora used for Nasal l/min Jamal Ayan procedure cannula MD [facility] 13:33:01 Lidocaine 2% added 20ml Gian Springer for local to vial [place] Jamal anesthetic field MD VELAZQUEZ 13:33:06 Heparin Flush added 2 Gian Gian used for Bag to bags Jamal Jamal procedure (1000units/500ml field MD VELAZQUEZ NS) 13:35:02 Fentanyl I.V. 50 Gian Nora for mcg Jamal Ayan sedation MD [facility] 13:35:52 Versed I.V. 2 mg Gian Nora for Jamal Ayan sedation MD [facility] 13:40:11 Versed I.V. 2 mg Gian Nora for Jamal Ayan sedation MD [facility] 13:40:19 Fentanyl I.V. 50 Gian Nora for mcg Jamal Ayan sedation MD MEMBRENOwelder assistant Log Time Note 12:46:04 Informed consent obtained and on chart 12:49:33 Arrival Date: 07/27/2019 12:00:00 AM 12:49:36 Admit Source: Other 12:49:42 Insurance Payor : Private health insurance, Medicare 12:52:10 Patient Height : 63.78 inches 12:52:13 Patient Weight : 326.29 lbs 12:53:11 Lab Result : Hemoglobin 12.7 g/dl 12:53:11 Lab Result : Creatinine 2 mg/dl 12:53:11 Lab Result : BUN 31 mg/dl 12:53:19 Diagnostic Cath Status : Elective 12:54:26 Indication : Angina 13:19:36 Vital chart was started 13:22:41 ACC Patient presents with Stable Angina CCS Anginal Class 4--Inability to carry out any physical activity w/o angina. Angina may occur at rest. 13:22:45 Procedure Status Elective Heart Cath (OP). 13:22:47 Talia Mena RT(R) sent for patient. Start room use. 13:22:58 Time tracking: Regular hours (M-F 7:00 - 5:00) 13:23:02 Plan of Care:Hemodynamics will remain stable., Cardiac rhythm will remain stable., Comfort level will be maintained., Respiratory function will remain adequate., Patient/ family verbilizes understanding of procedure., Procedure tolerated without complication., Recovers from procedure without complications.. 13:23:09 Patient received from Pre/Post Procedure Room to CCL 2 Alert and oriented. Tansferred to table in Supine position. 13:23:12 Warm blankets applied, and ten hugger turned on for patient comfort. 13:23:13 Correct patient and procedure confirmed by team. 13:23:14 ECG and BP/O2 sat monitors applied to patient. 13:23:15 Baseline sample Acquired. 13:23:20 Rhythm: sinus rhythm 13:23:21 Full Disclosure recording started 13:29:40 H&P Date Dictated: 07/21/2019 Within 30 days and on chart., H&P Addendum completed by physician on day of procedure. (MUST COMPLETE FOR ALL OUTPATIENTS). 13:29:41 Pre-procedure instructions explained to patient. 13:29:44 Family in waiting room. 13:29:47 Patient NPO since Midnight. 13:30:23 Patient allergic to Other allergyCeftin, Macrodantin, percocet, sulfa 13:30:26 Is the patient allergic to Iodine/contrast media? No. 13:30:29 Was the patient premedicated? Yes 13:30:33 Is patient on blood thinner?No 13:30:36 Patient diabetic? Yes. 13:30:43 If diabetic: On Metformin? No 13:30:47 Snore? Yes 13:30:48 Sleep apnea? Yes 13:31:04 Airway obstruction? Yes Emphazema, COPD 13:31:09 Patient pain scale 0/10 ?. 13:31:17 IV patent on arrival in right forearm with 0.9% NaCl at [facility]. 13:31:22 Lab results completed and on chart. 13:31:29 Right groin area was prepped with chlora-prep and draped in sterile fashion 13:31:30 Alarms reviewed by R. N. 13:31:31 Sharps counted by scrub and verified by R.N. 13:32:48 0.9% NaCl 100 ml/hr I.V. was administered by Nora Botello RN; used for procedure; Verbal order read back and verified. 13:32:54 Oxygen 2 l/min etCO2 Nasal cannula was administered by Nora Botello RN; used for procedure; Verbal order read back and verified. 13:33:01 Lidocaine 2% 20ml vial added to field was administered by Gian Berry MD; for local anesthetic; Verbal order read back and verified. 13:33:06 Heparin Flush Bag (1000units/500ml NS) 2 bags added to field was administered by Gian Berry MD; used for procedure; Verbal order read back and verified. 13:34:38 Zero performed for pressure channel P1 13:34:51 Physician arrived 13:34:52 --------ALL STOP TIME OUT------ 13:34:52 Final Timeout: patient, procedure, and site verified with staff and physician. All members of the team are in agreement. 13:35:02 Fentanyl 50 mcg I.V. was administered by Nora Botello RN; for sedation; Verbal order read back and verified. 13:35:15 Right groin site verified by team. 13:35:20 Fire Safety Assessment: A--An alcohol-based skin anteseptic being used preoperatively., C--Open oxygen or nitrous oxide is being used., D--An ESU, laser, or fiber-optic light is being used. 13:35:25 Physical assessment completed. ASA score P 4 - A patient with severe systemic disease that is a constant threat to life as per Gian Berry MD. 13:35:38 4) 15-29 Severley reduced kidney function. 13:35:52 Versed 2 mg I.V. was administered by Nora Botello RN; for sedation; Verbal order read back and verified. 13:36:44 Maximum allowable contrast dose (3.7 X eGFR X 0.75)72 ml. 13:36:49 Sedation plan: IV Moderate Sedation Medication:Versed, Fentanyl 13:37:07 Use device set Femoral Dx 13:37:09 ACIST Syringe (17456) opened to sterile field. 13:37:10 Bag Decanter (2002S) opened to sterile field. 13:37:10 Medline Cath Pack (OLBV07000) opened to sterile field. 13:37:11 ACIST Hand Control (80766) opened to sterile field. 13:37:12 ACIST Manifold (58021) opened to sterile field. 13:37:12 DIAGNOSTIC Multipack 5Fr catheter set (JU6266) opened to sterile field. 13:37:13 Tegaderm 4 x 4 (1626W) opened to sterile field. 13:37:15 SHEATH 5FR [place] (WXJ812) opened to sterile field. 13:37:16 EMERALD Guide Wire (125-910) opened to sterile field. 13:40:11 Versed 2 mg I.V. was administered by Nora Botello RN; for sedation; Verbal order read back and verified. 13:40:19 Fentanyl 50 mcg I.V. was administered by oNra Botello RN; for sedation; Verbal order read back and verified. 13:41:33 Procedure started. 13:41:46 Local anesthetic to right femoral artery with Lidocaine 2% by Gian Berry MD.INITIAL ACCESS ONLY 13:41:55 A 5 Fr sheath was inserted into the Right Femoral artery 13:46:28 A MULTIPACK JL 4.0 5Fr catheter was advanced over the wire and used for Procedure. 13:46:48 LCA angiography performed. 13:48:31 Catheter removed. 13:48:39 A MULTIPACK 3DRC 5Fr catheter was advanced over the wire and used for Procedure. 13:49:41 RCA angiography performed. 13:49:42 Catheter removed. 13:49:50 A MULTIPACK Pigtail 5 Fr catheter was advanced over the wire and used for Procedure. 13:49:55 LV gram done using KING 13:52:15 EF : 55 % 13:53:29 Catheter removed. 13:53:32 EXOSEAL 5Fr (EX500) opened to sterile field. 13:53:42 Sheath removed intact; hemostasis achieved with Exoseal to the Right Femoral artery. 13:53:48 Procedure ended.(Physican Out) 13:55:02 Fluoroscopy time 02.90 minutes. 13:55:06 Fluoroscopy dose: 767 mGy 13:55:06 Flurop Dose total: 767 13:55:11 Dose Area Product 49390 mGy/cm. 13:55:14 Contrast amount:Isovue 300 70ml. 13:55:17 Maximum allowable dose exceeded? No. 13:55:18 Sharps counted by scrub and verified by R.N. 13:55:19 Insertion/operative site no bleeding no hematoma. 13:55:23 Post-op/insertion site Right Femoral artery dressed using a 4 x 4 and Tegaderm. 13:55:33 Post right femoral artery:stable 13:55:41 Post-procedure physical assessment completed. ASA score P 3 - A patient with severe systemic disease as per Gian Berry MD. 13:55:45 Post procedure rhythm: unchanged. 13:55:48 Estimated blood loss: 10 ml 13:55:52 Post procedure instruction explained to patient.Patient verbalizes understanding. 13:56:10 Procedure type changed to Cath procedure, Diagnostic procedure, LHC, C w/Coronaries, Sedation Charges, Moderate Sedation up to 15 minutes 13:56:12 Procedure and supply charges have been captured, reviewed, submitted and are correct. 13:56:36 Procedure Complication : No complications 13:56:39 Vital chart was stopped 13:56:41 [facility] Findings: mild to moderate CAD (<70%) 13:56:44 Operative report dictated upon procedure completion. 13:56:44 See physician's report for complete and final results. 13:56:46 Report given to Pre/Post Procedure Room. 13:56:51 Patient transfered to Pre/Post Procedure Room with Stretcher. 13:56:53 Procedure ended. 13:56:53 Full Disclosure recording stopped 13:56:58 End room use (Document Last) Device Usage Item Name Manufacture Quantity Catalog Hospital Part Current Minimal L ot# / Number Charge Number Stock Stock Serial# Code ACIST Acist 1 47935 864659 435458 560265 20 Syringe Medical (13007) Systems Inc Bag Microtek 1 2001S 526519 65567 516225 5 Decanter Medical Inc. () Medline Medline 1 [id number] 130124 97255 908859 5 Cath Pack ([id number]) ACIST Hand Acist 1 82118 946063 252647 675378 5 Control Medical (09912) Systems Inc ACIST Acist 1 00509 720431 494611 312158 5 Manifold Medical (82833) Systems Inc DIAGNOSTIC Cardinal 1 EQ7436 394158 52353 330905 30 Sapience [employer] Private Limited 5Fr catheter set (JN3969) Tegaderm 4 3M 1 1626W 207777 861520 572491 5 x 4 (1626W) SHEATH 5FR Terumo 1 UYS576 373258 724211 275020 5 [place] (QXU172) EMERALD Cardinal 1 502455 503373 539937 583002 5 Guide Wire Health (502-899) MULTIPACK Cardinal 1 529476 5 JL 4.0 5Fr Health catheter MULTIPACK Cardinal 1 474587 5 3DRC 5Fr Health catheter MULTIPACK Cardinal 1 156760 5 Pigtail 5 Health Fr catheter EXOSEAL 5Fr Cardinal 1 EX500 730973 231568 685322 10 (EX500) Health Signature Audit Kaufman Stage Time Signature Unsigned Intra-Procedure 07/27/2019 Talia Mena 1:58:09 PM RT(R) Intra-Procedure 07/27/2019 Nora Botello 1:58:35 PM RN Intra-Procedure 07/27/2019 Gian Pereira 1:59:12 PM Venancio VELAZQUEZ Signatures Performing Physician : Signature : Gian Berry MD Date : Time : Monitor : Talia Mena Signature : RT Date : Time : Nurse : Nora Botello RN Signature : Date : Time : [address] [facility] [place] [address]
[2019-07-27 12:21] LABS: HEMATOCRIT 38.8 % (36.0-48.0); HEMOGLOBIN 12.7 g/dL (12-16); MCH 29.8 pg (26.0-34.0); MCHC 32.7 g/dL (31.0-37.0); MCV 91.1 fL (80.0-100.0); PLATELET COUNT 342 10x3/uL (130-400); RBC 4.26 10x6/uL (4.00-5.40); RDW 13.5 % (11.5-14.5)
[2019-07-27 12:23] VITALS: BP 151/64; Ht 162.6 cm; Wt 148.6 kg
[2019-07-27 12:24] LABS: ANION GAP 14.4 mmol/L (8-16); CALCIUM 9.5 mg/dL (8.5-10.1); CARBON DIOXIDE 26.7 mmol/L (21.0-32.0); POTASSIUM - SERUM 4.1 mmol/L (3.5-5.1)
[2019-07-27] MEDS ORDERED: NORVASC5 MG PO (12:26)
[2019-07-27] MEDS ORDERED: CLOBETASOL PROP50 ML TOPICAL (12:29)
[2019-07-27] MEDS ORDERED: GLYBURIDE5 M1 PO (12:32)
[2019-07-27] MEDS ORDERED: LINZESS145 MCG PO (12:33)
[2019-07-27] MEDS ORDERED: PIOGLITAZONE15 MG PO (12:37)
[2019-07-27] MEDS ORDERED: PROTONIX40 MG PO (12:37)
[2019-07-27] MEDS ORDERED: VESICARE10 MG PO (12:40)
[2019-07-27] MEDS ORDERED: SYMBICORT 16010.2 GM INH (12:41)
[2019-07-27 12:42] LABS: LYMPHOCYTES 18 % (15-50); MONOCYTES 2 % (2-11); NEUTROPHILS 78 % (40-80); PLATELET ESTIMATE NORMAL
[2019-07-27] MEDS ORDERED: SYNTHROID175 MCG PO (12:42)
[2019-07-27] MEDS ORDERED: TRAZODONE HCL150 MG PO (12:44)
[2019-07-27 12:45] LABS: CHOL - HDL RATIO 2.4 ratio (2.3-4.1); LDL-HDL RATIO 1.2 ratio (1.5-3.5)
[2019-07-27] MEDS ORDERED: EFFEXOR XR150 MG PO (12:48)
--- NOTE | 2019-07-27 14:10 | NUR ---
PT RECEIVED VIA STRETCHER FROM FOOD PRODUCTION WORKER FOR RECOVERY. PT AWAKE BUT DROWSY. PT DENIES PAIN OR DISCOMFORT. IV PATENT INFUSING VIA PUMP PER ORDERS. PT PLACED ON MAILROOM COORDINATOR AND O2 VIA NC. HR NSR RATE 66, BP 124/54, RR 13, SAT 98. R GROIN W 5FR EXOCELE, DRESSING CDI NO BLEEDING OR HEMATOMA NOTED. LEG PINK AND WARM, PEDAL PULSES PALPALBE. CALL LIGHT IN REACH. DR VIDAL WAS IN ROOM TALKING W PT'S S/O REGARDING PROCEDURE RESULTS AND PLAN OF CARE.
--- NOTE | 2019-07-27 14:30 | NUR ---
PT RESTING W/O COMPLAINTS. R GROIN SOFT, DRESSING CDI NO BLEEDING OR HEMATOMA NOTED. LEG PINK AND WARM, PEDAL PULSES PALPABLE. HR 69, BP 119/53, RR 15, SAT 93. PT DENIES NEEDS. CALL LIGHT IN REACH, S/O AT BS.
--- NOTE | 2019-07-27 15:00 | NUR ---
R GROIN SOFT, DRESSING REMAINS CDI. HOB ELEVATED SLIGHTLY, SANDWICH TRAY AND DRINK SERVED. IV INFUSING VIA PUMP PER ORDERS. PT DENIES PAIN OR OTHER NEEDS AT THIS TIME. CALL LIGHT IN REACH
--- NOTE | 2019-07-27 15:35 | NUR ---
IV REMOVED W CATH INTACT PER Horace ACEVES RN. CARDIAC MONITORS AND O2 REMOVED. R GROIN REMAINS SOFT, DRESSING CDI.
--- NOTE | 2019-07-27 15:40 | NUR ---
PT AMBULATED TO BR, VOIDING W/O DIFFICULITY
--- NOTE | 2019-07-27 15:49 | NUR ---
DISCHARGE INSTRUCTIONS REVIEWED W PT AND S/O, BOTH VERBALIZED UNDERSTANDING. PT DISCHARGED VIA WC TO S/O WAITING IN PRIVATE VEHICLE. PT HAD ALL BELONGINGS AND DISCHARGE PAPERWORK.
--- NOTE | 2019-08-01 08:48 | OP ---
PATIENT NAME: FAN PAZ MEDICAL RECORD: [id number] :50 LOCATION:D.[facility] ADMISSION DATE: SURGEON: EMILY VIDAL MD DATE OF OPERATION: 07/27/2019 PROCEDURE: Left heart catheterization, selective coronary angiography, right femoral artery approach. CATHETERS: A 5-Lao sheath, 5/4 left and right Tun[place], 5/4 pig. The procedure was well tolerated. The patient was returned to celestin. Sheath was removed. ExoSeal device was placed. FINDINGS: Left ventriculography in 30-degree KING view: Normal wall motion and normal systolic function. CORONARY ANATOMY: LEFT MAIN: Left main is free of disease. LAD: Free of disease in the diagonal system. CIRCUMFLEX: Free of disease in the marginal system. RIGHT CORONARY ARTERY: Dominant artery, gives rise to PDA, free of disease. IMPRESSION: Normal LV systolic function, normal coronary anatomy. TRANSINT:[id number] Voice Confirmation ID: [id number] DOCUMENT ID: [id number] EMILY VIDAL MD at 0848 CC: [id number] DICTATION DATE: 07/27/19 1358 GREENHOUSE INSTRUCTOR: 07/27/19 1458 DEP CLI 07/27/[address] [facility] [address] [place] [address]
== END 2019-07-27 15:50 | disposition home or self-care (01) ==
LOC: D.CATH 11:33
PROVIDERS: ATTEND Internal Medicine Interventional Cardiology
DX: I25.10 Atherosclerotic heart disease of native coronary artery without angina pectoris (principal); R06.02 Shortness of breath

== ENCOUNTER 2019-08-26 17:50 | Emergency (ER) | payer MEDICARE, BC ==
[~2019-08-26] VITALS: Ht 162.6 cm; Wt 150.0 kg
[~2019-08-26 17:50] MED LIST changes: +CLOBETASOL PROP50 ML TOPICAL; +GLYBURIDE5 M1 PO; +LINZESS145 MCG PO; +PIOGLITAZONE15 MG PO; +SYMBICORT 16010.2 GM INH; +SYNTHROID175 MCG PO; +TRAZODONE HCL150 MG PO
[2019-08-26 17:59] VITALS: Ht 162.6 cm; Wt 150.0 kg
[2019-08-26] MEDS ORDERED: FLUTICASONE PRO16 GM NASAL (18:06)
[2019-08-26 20:11] VITALS: BP 150/69
== END 2019-08-26 20:12 | disposition home or self-care (01) ==
LOC: D.ER 17:50
DX: R04.0 Epistaxis (principal); E11.9 Type 2 diabetes mellitus without complications; E05.00 Thyrotoxicosis with diffuse goiter without thyrotoxic crisis or storm; E07.9 Disorder of thyroid, unspecified; I10 Essential (primary) hypertension; I25.2 Old myocardial infarction; I50.9 Heart failure, unspecified; J44.9 Chronic obstructive pulmonary disease, unspecified; Z99.81 Dependence on supplemental oxygen

== ENCOUNTER → 2019-10-31 08:39 | Outpatient (CLI) | payer MEDICARE, BC ==
[2019-08-26 17:59] VITALS: BMI 56.8
== END | disposition home or self-care (01) ==
LOC: D.RT 08:39
PROVIDERS: ATTEND Internal Medicine Pulmonary Disease
DX: J44.9 Chronic obstructive pulmonary disease, unspecified (principal)

== ENCOUNTER → 2020-02-29 10:05 | Outpatient (CLI) | payer MEDICARE, BC ==
[2019-08-26 17:59] VITALS: BMI 56.8
--- NOTE | ~2020-02-29 | EC ---
PATIENT:FAN PAZ DATE OF SERVICE: 02/29/20 SEX: F MEDICAL RECORD: [id number] DATE OF : 50 LOCATION:D.[facility] AGE OF PATIENT: 70 ADMISSION DATE: 02/29/20 REFERRING PHYSICIAN: INTERPRETING PHYSICIAN: EMILY VIDAL MD ECHOCARDIOGRAM REPORT ECHO CHARGES 4 ECHO COMPLETE Date: 02/29/20 CLINICAL DIAGNOSIS: HTN/CAD/MITRAL REGURG ECHOCARDIOGRAPHIC MEASUREMENTS (adult normal given) AC root (d.<3.7cm) 3.4 cm LV Septum d (<1.2 cm> 1.3 cm Valve Excursion 1.6 cm LV Septum (systole) 1.5 cm Left Atria (s.<4.0cm> 3.6 cm LVPW d(<1.2cm) 1.4 cm RV (d.<2.3cm) 3.8 cm LVPW (sytole) 1.9 cm LV diastole(<5.6CM) 5.9 cm MV E-F(>70mm/sec) cm LV systole 3.6 cm LVOT Diameter 2.0 cm MV exc.(>10mm) 1.7 cm Est.ejection fraction (50-75%) % DOPPLER: LVIT cm/sec A 33.0 cm/sec E 56.0 cm/sec LA cm/sec RVSP 14 mmHg LVOT 124 cm/sec AOP1/2T m/s Asc. Ao 158 cm/sec RVOT 95 cm/sec RA cm/sec PA 124 cm/sec AV Gradient Peak 9.93 mmHg AV Mean 4.82 mmHg AV Area 2.6 cm MV Gradient Peak 3.57 mmHg MV Mean 1.48 mmHg MV Area cm COMMENTS: Youth Liaison Officer: 2 YUDI RUBIO Termination Clerk: 3 Dr. Miller TAPE# PACS Pericardial Effusion N DATE OF SERVICE: Adequate 2D, color flow imaging, spectral Doppler, and M-Mode. Mild LVH. LV internal dimensions are normal. Wall motion is normal. EF greater than or equal to 55%. Aortic valve is tricuspid. No evidence of stenosis by Doppler interrogation. Left atrium is normal at 3.6 cm. Mitral valve shows no prolapse. Trace MR. Right-sided chambers are grossly normal. Trace TR. ECHOCARDIOGRAM REPORT [id number] FAN PAZ TRANSINT:[id number] Voice Confirmation ID: [id number] DOCUMENT ID: [id number] EMILY VIDAL MD CC: [id number] DICTATION DATE: 03/04/2042 GYM MANAGER: 03/04/202100 [facility] CLI 02/29/20 [id number] [place] [address]
== END | disposition home or self-care (01) ==
LOC: D.HCCECHO 10:05
PROVIDERS: ATTEND Internal Medicine Interventional Cardiology
DX: I10 Essential (primary) hypertension (principal)

== ENCOUNTER → 2020-03-22 10:41 | Outpatient (CLI) | payer MEDICARE, BC ==
[2019-08-26 17:59] VITALS: BMI 56.8
== END | disposition home or self-care (01) ==
LOC: D.CT 10:41
PROVIDERS: ATTEND Nurse Practitioner
DX: J01.01 Acute recurrent maxillary sinusitis (principal)

== ENCOUNTER 2020-04-08 13:49 | Emergency (ER) | payer MEDICARE, BC ==
[~2020-04-08] VITALS: Ht 162.6 cm; Wt 159.1 kg
[2020-04-08 14:29] VITALS: Ht 162.6 cm; Wt 159.1 kg
[2020-04-08 15:42] LABS: BASOPHILS 0.4 % (0-2); EOSINOPHILS 2.6 % (0-7); HEMATOCRIT 34.5 % (36.0-48.0); HEMOGLOBIN 11.3 g/dL (12-16); IMMATURE GRANULOCYTES 0.9 % (0-5); LYMPHOCYTES 22.1 % (15-50); MCH 30.1 pg (26.0-34.0); MCHC 32.8 g/dL (31.0-37.0); MCV 91.8 fL (80.0-100.0); MEAN PLATELET VOLUME 9.6 fL (7.4-10.4); MONOCYTES 5.7 % (2-11); NEUTROPHILS 68.3 % (40-80); PLATELET COUNT 282 10x3/uL (130-400); RBC 3.76 10x6/uL (4.00-5.40); RDW 13.3 % (11.5-14.5); WBC 13.1 10x3/uL (4.8-10.8)
[2020-04-08 15:42] LABS: BILIRUBIN NEGATIVE (NEGATIVE); GLUCOSE NEGATIVE (NEGATIVE); KETONE NEGATIVE (NEGATIVE); NITRITE NEGATIVE (NEGATIVE); UROBILINOGEN NORMAL (NORMAL)
[2020-04-08 15:53] LABS: APTT 35.5 SECONDS (22.8-39.4); INR 0.94 (0.85-1.17); PROTIME 12.5 SECONDS (11.6-15.0)
[2020-04-08 16:05] LABS: CALC OSMOLALITY 267 mosm/kg (275-300); CALCIUM 9.3 mg/dL (8.5-10.1); CARBON DIOXIDE 27.6 mmol/L (21.0-32.0); CHLORIDE - SERUM 96 mmol/L (98-107); CREATININE - SERUM 2.1 mg/dL (0.6-1.3); POTASSIUM - SERUM 3.8 mmol/L (3.5-5.1); SODIUM 132 mmol/L (136-145); UREA NITROGEN 24 mg/dL (7-18); eGFR NON AFRICAN AMERICAN 25 mL/min (90-120)
[2020-04-08 16:22] LABS: ALBUMIN 3.9 g/dL (3.4-5.0); ALKALINE PHOSPHATASE 94 U/L (30-120); ALT (SGPT) 19 U/L (10-68); BILIRUBIN - TOTAL 0.36 mg/dL (0.2-1.3); CREATINE KINASE 118 UL (21-215); MAGNESIUM - SERUM 2.1 mg/dL (1.8-2.4); PROTEIN - SERUM 7.9 g/dL (6.4-8.2); TROPONIN-I < 0.017 ng/mL (0.000-0.060)
[2020-04-08 16:23] LABS: GLUCOSE 83 mg/dL (74-106)
[2020-04-08] MEDS ORDERED: ZPAK PO (16:31)
[2020-04-08 16:40] VITALS: BP 121/79
== END 2020-04-08 16:40 | disposition home or self-care (01) ==
LOC: D.ER 13:49
PROVIDERS: Family Medicine
DX: J06.9 Acute upper respiratory infection, unspecified (principal); R50.9 Fever, unspecified; R51 Headache; E11.9 Type 2 diabetes mellitus without complications; I11.0 Hypertensive heart disease with heart failure; I50.9 Heart failure, unspecified; I25.2 Old myocardial infarction; Z79.84 Long term (current) use of oral hypoglycemic drugs; K21.9 Gastro-esophageal reflux disease without esophagitis; J44.9 Chronic obstructive pulmonary disease, unspecified; Z99.81 Dependence on supplemental oxygen; Z72.0 Tobacco use

== ENCOUNTER 2020-05-06 07:20 | Day surgery (SDC) | payer MEDICARE, BC ==
[~2020-05-06] VITALS: Ht 162.6 cm; Wt 148.2 kg
[~2020-05-06 07:20] MED LIST changes: +ZPAK PO
[2020-05-06 08:00] LABS: HEMATOCRIT 34.9 % (36.0-48.0); HEMOGLOBIN 11.6 g/dL (12-16); MCHC 33.2 g/dL (31.0-37.0); MCV 90.2 fL (80.0-100.0); MEAN PLATELET VOLUME 9.5 fL (7.4-10.4); RBC 3.87 10x6/uL (4.00-5.40); RDW 13.2 % (11.5-14.5); WBC 12.4 10x3/uL (4.8-10.8)
[2020-05-06 08:08] LABS: CALCIUM 9.2 mg/dL (8.5-10.1); CARBON DIOXIDE 30.3 mmol/L (21.0-32.0); CREATININE - SERUM 2.1 mg/dL (0.6-1.3); POTASSIUM - SERUM 3.3 mmol/L (3.5-5.1)
[2020-05-06 08:48] VITALS: BP 139/67; Ht 162.6 cm; Wt 148.2 kg
--- NOTE | 2020-05-07 15:18 | OP ---
PATIENT NAME: FAN PAZ MEDICAL RECORD: [id number] :50 LOCATION:[place] ADMISSION DATE: SURGEON: JORDI ORELLANA DO DATE OF OPERATION: 05/06/2020 PROCEDURE: Colonoscopy with polypectomy. INDICATIONS FOR PROCEDURE: History of colon polyps, chronic constipation. The patient's last colonoscopy was over 1 year ago. SCOPE: Olympus video pediatric colonoscope. MEDICATIONS: Propofol 500 mg IV per anesthesia. WITHDRAWAL TIME: 19 minutes. ESTIMATED BLOOD LOSS: Minimal. COMPLICATIONS: None. FINDINGS: Informed consent was given. The patient was made comfortable with the above medication. After reaching an adequate level of sedation by slow IV push, the patient was placed on her left side. A digital rectal examination was performed and was normal. The endoscope was then advanced under direct visualization through the rectum to the cecum, confirmed by the presence of the appendiceal orifice and ileocecal valve. The endoscope was slowly withdrawn and mucosa was carefully examined. The prep quality was fair. There were 4 polyps visualized on today's examination. The first was located in the transverse colon. It was a benign appearing sessile polyp, which measured approximately 4-5 mm in diameter. It was removed using hot snare. In the descending colon, there was a benign appearing sessile polyp, which measured approximately 3 mm in diameter. It was removed using a hot forceps. In the sigmoid colon, there was a benign appearing sessile polyp, which measured approximately 4 mm in diameter. It was removed using a hot snare. In the rectum, there was a benign-appearing flat polyp, which measured approximately 3-4 mm in diameter. It was removed using a hot snare. There was evidence of mild diverticulosis involving the sigmoid colon. Retroflexion was performed in the rectum with visualization of a normal appearing rectal wall. The endoscope was withdrawn from the patient. The patient tolerated the procedure well and there were no complications. IMPRESSION: 1. Four polyps as described above, removed using a combination of hot snare and hot forceps. 2. Mild diverticulosis of the sigmoid colon. PLAN AND RECOMMENDATIONS: 1. Discharge home when recovery parameters are met. 2. Follow up biopsy specimen results. 3. High fiber diet. 4. Continue current medications. 5. Consider supplementing diet with 1 tablespoon of fiber daily. 6. Recall colonoscopy in 5 years. TRANSINT:[id number] Voice Confirmation ID: [id number] DOCUMENT ID: [id number] OPERATIVE REPORT [id number] FAN PAZ NATHAN A DO at 1518 CC: [id number] DICTATION DATE: 05/06/20 1038 TREE GIRDLER: 05/06/20 2210 [facility] 05/06/20 [place] [address] [place] [id number]
== END 2020-05-06 11:10 | disposition home or self-care (01) ==
LOC: D.OPS 07:20
PROVIDERS: Anesthesiology; ATTEND Internal Medicine Gastroenterology
DX: Z86.010 Personal history of colon polyps (principal); K59.09 Other constipation; K63.5 Polyp of colon; K57.30 Diverticulosis of large intestine without perforation or abscess without bleeding

== ENCOUNTER → 2020-05-07 09:01 | Outpatient (CLI) | payer MEDICARE, BC ==
[2020-05-06 08:48] VITALS: BMI 56.1
--- NOTE | 2020-05-08 07:58 | EC ---
PATIENT:FAN PAZ DATE OF SERVICE: 05/07/20 SEX: F MEDICAL RECORD: [id number] DATE OF : 50 LOCATION:D.[facility] AGE OF PATIENT: 70 ADMISSION DATE: 05/07/20 REFERRING PHYSICIAN: INTERPRETING PHYSICIAN: EMILY VIDAL MD ECHOCARDIOGRAM REPORT ECHO CHARGES 4 ECHO COMPLETE Date: 05/07/20 CLINICAL DIAGNOSIS: CHF ECHOCARDIOGRAPHIC MEASUREMENTS (adult normal given) AC root (d.<3.7cm) 2.6 cm LV Septum d (<1.2 cm> 0.8 cm Valve Excursion 1.7 cm LV Septum (systole) 1.2 cm Left Atria (s.<4.0cm> 4.0 cm LVPW d(<1.2cm) 1.1 cm RV (d.<2.3cm) 2.7 cm LVPW (sytole) 1.4 cm LV diastole(<5.6CM) 6.3 cm MV E-F(>70mm/sec) cm LV systole 5.1 cm LVOT Diameter 1.4 cm MV exc.(>10mm) cm Est.ejection fraction (50-75%) % DOPPLER: LVIT cm/sec A 53 cm/sec E 87 cm/sec LA cm/sec RVSP 18.3 mmHg LVOT 84 cm/sec AOP1/2T m/s Asc. Ao 152 cm/sec RVOT 68 cm/sec RA cm/sec PA 83 cm/sec AV Gradient Peak 9.2 mmHg AV Mean 5.5 mmHg AV Area 0.8 cm MV Gradient Peak 5.5 mmHg MV Mean 1.7 mmHg MV Area cm COMMENTS: Genetic Physician: Sasha SAMAYOANATA RC Merchandise Flow Associate: 3 Dr. Miller TAPE# PACS Pericardial Effusion N DATE OF SERVICE: Adequate 2D, color flow imaging, spectral Doppler, and M-Mode. No LVH. LV internal dimensions are normal. Wall motion is normal. EF is greater than or equal to 55%. Aortic valve is tricuspid. No evidence of stenosis by Doppler interrogation. Left atrium is normal at 4.0 cm. Mitral valve shows no prolapse. Trace MR. Right-sided chambers are grossly normal. Trace TR. TRANSINT:[id number] Voice Confirmation ID: [id number] DOCUMENT ID: [id number] ECHOCARDIOGRAM REPORT [id number] FAN PAZ EMILY VIDAL MD at 0758 CC: [id number] DICTATION DATE: 05/07/20 1545 BIOMEDICAL ENGINEERING TECHNOLOGIST: 05/07/202116 DEP CLI 05/07/20 [address] [place] [address]
== END | disposition home or self-care (01) ==
LOC: D.ECHO 09:00
PROVIDERS: ATTEND Internal Medicine Pulmonary Disease
DX: I50.9 Heart failure, unspecified (principal)

== ENCOUNTER → 2020-05-31 14:39 | Outpatient (CLI) | payer MEDICARE, BC ==
[2020-05-06 08:48] VITALS: BMI 56.1
== END | disposition home or self-care (01) ==
LOC: D.LAB 14:39
PROVIDERS: ATTEND Internal Medicine Pulmonary Disease
DX: J44.9 Chronic obstructive pulmonary disease, unspecified (principal)

== ENCOUNTER → 2020-06-05 14:34 | Outpatient (CLI) | payer MEDICARE, BC ==
[2020-05-06 08:48] VITALS: BMI 56.1
== END | disposition home or self-care (01) ==
LOC: D.RT 14:34
PROVIDERS: ATTEND Internal Medicine Pulmonary Disease
DX: J44.9 Chronic obstructive pulmonary disease, unspecified (principal)